=== PATIENT | male | born 1955 | race Caucasian/White ===

== ENCOUNTER 2018-08-23 07:30 | Inpatient (IN) | payer MEDICARE, OTHER ==
[~2018-08-23] VITALS: Ht 170.2 cm; Wt 140.6 kg
[~2018-08-23 07:30] MED LIST: DIAZ5TAB3 PO; GBPN600T PO; LINA5TAB PO; METH750T3 PO; METO100T6 PO; NABU750T PO; OMEG1CAP PO; OXYC-465 PO; UBID100C17 PO
[2018-08-30] MEDS ORDERED: FINA5TAB6 PO (10:33)
[2018-08-30] MEDS ORDERED: METF-397 PO (10:33)
[2018-08-30] MEDS ORDERED: TAMS0.4C2 PO (10:33)
[2018-08-30] MEDS ORDERED: CYCL10TA9 PO (10:33)
[2018-08-30] MEDS ORDERED: METO-370 PO (10:33)
[2018-08-30] MEDS ORDERED: METF-478 PO (11:11)
--- NOTE | 2018-08-30 13:04 | NUR ---
CALLED [facility] IN [place] FOR A LIST OF RECENTLY FILLED MEDICATIONS. I ALSO CALLED THE PATIENT AND WENT OVER THAT LIST WITH HIM OVER THE PHONE. [facility] FILLED: 08-27-18 METFORMIN ER 500MG BID 08-27-18 METOPROLOL ER 50MG DAILY 08-17-18 GABAPENTIN 600MG 1 AM 1 NOON 3 HS 08-05-18 FINASTERIDE 5MG HS (TAKES AT DINNER TIME) 08-05-18 FLOMAX 0.4MG AFTER EVENING MEAL 08-04-18 FLEXERIL 10MG Q8H PRN (TAKES TID SCHEDULED) HE ALSO TAKES A CO Q 10 IN THE AFTERNOON OTC.
[2018-09-06] MEDS ORDERED: morphine INJ 10 MG/ML 1ML (SYR OR VIAL) IVP PRN (06:45)
[2018-09-06] MEDS ORDERED: ACETAMINOPHEN 325 MG TABLET PO PRN (06:45)
--- OUTSIDE RECORDS SUMMARY | 2018-09-06 07:09 | XMS REPORT | Continuity of Care Document ---
Author Author [facility] Organization [facility] Address Unknown Phone Unavailable Allergies Active Description Code Type Severity Reaction Onset Reported/Identified Relationship to Patient Clinical Status Yes aspirin [id number] Drug Allergy Unknown UPSET STOMACH 03/28/2015 Yes latex [id number] Drug Allergy Unknown HIVES 03/28/2015 Yes aspirin [id number] Drug Allergy Mild UPSET STOMACH 08/30/2018 Yes latex [id number] Drug Allergy Mild HIVES 08/30/2018 Medications There is no data. Problems Date Dx Coded Attending Type Code Diagnosis Diagnosed By 04/05/2015 ELVIN BRANDT MD Ot E11.9 04/05/2015 ELVIN BRANDT MD, Ot E78.0 04/05/2015 ELVIN BRANDT MD, Ot G47.33 04/05/2015 ELVIN BRANDT MD, Ot I10 04/05/2015 ELVIN BRANDT MD Ot M47.892 04/05/2015 ELVIN BRANDT MD, Ot M96.0 04/05/2015 ELVIN BRANDT MD, Ot Z23 04/06/2015 ELVIN BRANDT MD Ot 724.00 04/06/2015 ELVIN BRANDT MD Ot V72.63 04/06/2015 ELVIN BRANDT MD, Ot V72.81 04/06/2015 ELVIN BRANDT MD, Ot V74.8 08/31/2018 ELVIN BRANDT MD, Ot M96.0 PSEUDARTHROSIS AFTER FUSION OR ARTHRODES 08/31/2018 ELVIN BRANDT MD Ot Z01.812 ENCOUNTER FOR PREPROCEDURAL LABORATORY E 08/31/2018 ELVIN BRANDT MD, Ot Z11.2 ENCOUNTER FOR SCREENING FOR OTHER BACTER Procedures There is no data. Results Test Result Range Blood type T Indirect antibody screen panel - 08/30/18 10:50 ABO+Rh group BN NRG Blood group antibody screen NEGATIVE NRG Methicillin resistant Staphylococcus aureus (MRSA) screening culture - 10:50 Methicillin resistant Staphylococcus aureus (MRSA) screening culture NEG NRG Encounters ACCT No. Visit Date/Time Discharge Status Pt. Type Provider Facility Loc./Unit Complaint [id number] 08/30/2018 10:20:00 08/30/2018 14:04:00 DIS Outpatient ELVIN BRANDT MD [facility] PREOP NON-UNION [id number] 04/02/2015 08:03:00 04/05/2015 10:30:00 DIS Inpatient ELVIN BRANDT MD [facility] SURGICAL [id number] 03/28/2015 08:44:00 03/28/2015 23:59:59 CLS Outpatient ELVIN BRANDT MD [facility] PREOP [id number] 09/06/2018 07:30:00 ACT Preadmit ELVIN BRANDT MD [facility] SDC NON-UNION [id number] 03/28/2015 08:45:20 ACT Document Registration
--- OUTSIDE RECORDS SUMMARY | 2018-09-06 07:09 | XMS REPORT | Clinical Summary ---
Author Author [facility] Address Unknown Phone Unavailable Care Team Providers Care Hybrid Tester Name Role Phone Melissa Jo MD Unavailable Unverified, Unverified PCP Unavailable Source Comments Some departments are not documenting in the electronic medical record. If you do not see the information that you expected, contact Release of Information in the Health Information Management department at [phone] for further assistance in locating additional records.[facility] Allergies Comments Active Allergy Reactions Severity Noted Date Allergy recorded in SMS: ASA~Reactions: STOMACH UPSET Aspirin Medium 08/12/2004 Medications End Date Status Medication Sig Dispensed Refills Start Date Active methocarbamol (ROBAXIN) Take 1,500 mg 0 750 mg tablet by mouth three times daily. Active [place]-3 Acid Ethyl Esters Take 2 g by 0 (LOVAZA) 1 gram cap mouth twice daily with meals. Active metformin-SR(+) Take 1,000 mg 0 (GLUMETZA) 1,000 mg by mouth tablet twice daily with meals. Active traMADol (ULTRAM) 50 mg Take 100 mg 0 tablet by mouth three times daily. Active METOPROLOL SUCCINATE Take 100 mg 0 (TOPROL XL PO) by mouth daily. Active amitriptyline (ELAVIL) 50 Take 50 mg by 0 mg tablet mouth twice daily. Take 2 tablets by mouth daily Active gabapentin (NEURONTIN) Take 600 mg 0 600 mg tablet by mouth. Take one tablet in the morning, one tablet at noon and three tablets at bedtime Active nabumetone (RELAFEN) 750 Take 750 mg 0 mg tablet by mouth twice daily. Active ketoconazole (NIZORAL) 2 Apply to 0 % topical cream affected area daily. Active blood sugar diagnostic 1 Strip by 0 (ACCU-CHEK CAPRICE PLUS) Test route test strip before meals and at bedtime. Active coenzyme Q10(+) 100 mg Take 100 mg 0 cap by mouth. Active Problems Not on file Social History Date Tobacco Use Types Packs/Day Years Used Never Assessed Sex Assigned at Date Recorded Not on file Industry Job Start Date Occupation Not on file Not on file Not on file Travel End Travel History Travel Start No recent travel history available. Last Filed Vital Signs Time Taken Vital Sign Reading 02/22/2013 9:15 AM CDT Blood Pressure 148/87 02/22/2013 9:15 AM CDT Pulse 72 - Temperature - - Respiratory Rate - - Oxygen Saturation - - Inhaled Oxygen - Concentration 02/22/2013 9:15 AM CDT Weight 142 kg (313 lb) - Height - - Body Mass Index - Plan of Treatment Health Maintenance Due Date Last Done Comments HEPATITIS C SCREENING 1957 PHYSICAL (COMPREHENSIVE) 01/18/1964 EXAM HIV SCREENING 01/18/1972 DTAP/TDAP VACCINES (1 - 1975 Tdap) COLORECTAL CANCER 2007 SCREENING SHINGLES RECOMBINANT 2007 VACCINE (1 of 2) INFLUENZA VACCINE 02/03/2019 Results Not on filefrom Last 3 Months
[2018-09-06] MEDS ORDERED: GENTAMICIN 40 MG/ML 2 ML INJ SDV ONE ×2 (07:21→10:36)
[2018-09-06] MEDS ORDERED: BACITRACIN OINTMENT 28 GM TUBE ONE (07:21)
[2018-09-06] MEDS ORDERED: VANCOMYCIN 1000 MG/VIAL ONE (07:21)
[2018-09-06] MEDS ORDERED: fentaNYL INJECTION 250 MCG/5 ML AMP ONE (07:42)
[2018-09-06] MEDS ORDERED: MIDAZOLAM 2 MG/2 ML (VERSED) VIAL ONE (07:42)
[2018-09-06] MEDS ORDERED: ceFAZolin 2 GM IV Premixed 50 ML IV ONE (07:45)
[2018-09-06] MEDS: LACTATED RINGERS 1,000 ML IV PRN ×6 (08:11→16:20)
[2018-09-06 08:13] LABS: HEMOGLOBIN 13.4 G/DL (13.3-17.7); MEAN PLATELET VOLUME 9.2 FL (7.4-10.4); RED CELL DISTRIBUTION WIDTH 14.5 % (10.0-14.5); WHITE BLOOD COUNT 7.4 10^3/uL (4.3-11.0)
[2018-09-06 08:19] VITALS: BP 138/98
[2018-09-06 08:30] LABS: BUN/CREATININE RATIO 18; CALCIUM 8.9 MG/DL (8.5-10.1); CARBON DIOXIDE 23 MMOL/L (21-32); CHLORIDE 105 MMOL/L (98-107); CREATININE SERUM 0.88 MG/DL (0.60-1.30); GFR ESTIMATED > 60; GLUCOSE 114 MG/DL (70-105); POTASSIUM 3.9 MMOL/L (3.6-5.0); SODIUM 138 MMOL/L (135-145)
[2018-09-06] MEDS ORDERED: SEVOFLURANE (ULTANE) 15 ML INHAL SOLN ONE ×17 (10:31→15:17)
[2018-09-06] MEDS ORDERED: LIDOCAINE PF 2% 5 ML (XYLOCAINE) VIAL ONE ×3 (10:32→11:40)
[2018-09-06] MEDS ORDERED: ONDANSETRON 4 MG/2 ML (SDV) Z0FRAN ONE ×2 (10:32→15:53)
[2018-09-06] MEDS ORDERED: DEXMEDETOMIDINE 200 MCG/2 ML (PRECEDEX) VIAL IV ONE ×3 (10:32→13:06)
[2018-09-06] MEDS ORDERED: SUCCINYLCHOLINE INJ 100 MG/5 ML SYR ONE (10:32)
[2018-09-06] MEDS ORDERED: ROCURONIUM 10 MG/ML 5 ML SYRINGE IV ONE ×2 (10:32→13:35)
[2018-09-06] MEDS ORDERED: LACTATED RINGERS 1,000 ML IV ONE ×2 (10:32→14:32)
[2018-09-06] MEDS ORDERED: TRANEXAMIC ACID 100 MG/ML 10 ML INJECTION IV ONE ×2 (10:32→14:32)
[2018-09-06] MEDS ORDERED: CEFAZOLIN IV SCH (10:45)
[2018-09-06] MEDS ORDERED: WATER IV SCH (10:45)
[2018-09-06] MEDS ORDERED: PHENYLEPHRINE 100 MCG/ML 10 ML (ANESTHESIA) SYR ONE (10:50)
[2018-09-06] MEDS ORDERED: ceFAZolin INJECTION 2,000 MG in WATER (STERILE) FOR INJECTION 10 ML IV ONE (12:40)
[2018-09-06] MEDS ORDERED: ceFAZolin INJECTION 2,000 MG ONE (12:42)
[2018-09-06] MEDS ORDERED: proPOfol 200 MG/20 ML (DIPRIVAN) VIAL IV ONE (14:32)
[2018-09-06] MEDS ORDERED: fentaNYL INJECTION 100 MCG/2 ML AMP ONE (15:52)
[2018-09-06] MEDS ORDERED: HYDROmorphone 2 MG/ML VIAL (DILAUDID) ONE (15:52)
[2018-09-06] MEDS ORDERED: morphine INJ 10 MG/ML 1ML (SYR OR VIAL) ONE (15:53)
--- NOTE | 2018-09-06 16:17 | Progress Note-Post Operative ---
Post-Operative Progess Note Surgeon (s)/Early Childhood Lead Teacher (s) Surgeon ELVIN BRANDT MD Early Childhood Lead Teacher: LISETTE Valadez Pre-Operative Diagnosis Lumbosacral Non-union, Thoracic Adjacent segment degeneration. Hardware Fa Post-Operative Diagnosis Same Procedure & Operative Findings Date of Procedure 09/06/18 Procedure Performed/Findings C7-Pelvis revision instrumentation. Anesthesia Type GETA Estimated Blood Loss Estimated blood loss (mL): 1400 Specimens/Packing Specimens Removed Cultures ELVIN BRANDT MD Sep 06, 2018 16:17
--- NOTE | 2018-09-06 16:29 | Diagnostic Imaging Report ---
INDICATION: Fluoroscopy during spinal surgery. TECHNIQUE: Fluoroscopy was provided in the OR during revision of back fusion. 43 seconds of fluoroscopy was utilized. Images demonstrate extensive spinal instrumentation throughout the cervical, thoracic, and lumbar spine with iliac extensions. IMPRESSION: Fluoroscopy during cervical spinal fusion revision. Dictated by: Dictated on workstation # [id number]
[2018-09-06] MEDS ORDERED: morphine INJ 10 MG/ML 1ML (SYR OR VIAL) IVP ONE (16:30)
[2018-09-06] MEDS ORDERED: ONDANSETRON 4 MG/2 ML (SDV) Z0FRAN IVP PRN (16:30)
[2018-09-06] MEDS: NS IV 1000 ML 1,000 ML IV SCH ×2 (17:48→19:00)
[2018-09-06] MEDS: PANTOPRAZOLE 40 MG (PROTONIX) VIAL IV SCH (17:51)
[2018-09-06] MEDS: MULTIVIT W/MINERALS TAB (THERAGRAN M) PO SCH (17:51)
[2018-09-06] MEDS: DOCUSATE SODIUM 100 MG (COLACE) CAP PO SCH ×2 (18:52→20:53)
[2018-09-06] MEDS: inSUlin ASPART (NovoLOG) 1 UNIT/0.01 ML (CHARGE PER UNIT) SC SCH ×3 (18:53→20:48)
[2018-09-06 19:00] VITALS: BP 109/79
[2018-09-06 20:00] VITALS: BP 99/55
[2018-09-06] MEDS: ceFAZolin INJECTION 3,000 MG in NS (IVPB) 50 ML IV SCH (20:44)
[2018-09-06] MEDS: DIAZEPAM 5 MG (VALIUM) TABLET PO PRN (20:53)
[2018-09-06 21:00] VITALS: BP 105/65
[2018-09-06 22:00] VITALS: BP 109/78
[2018-09-06 23:00] VITALS: BP 114/78
[2018-09-07] VITALS (23 sets, daily range): BP systolic 97–124; BP diastolic 54–90
[2018-09-07] MEDS: HYDROcodone/APAP 10 MG/325 MG (LORTAB) TAB PO PRN ×3 (00:51→18:10)
--- NOTE | 2018-09-07 02:25 | NUR ---
Contacted E-ICU r/t pt's increasing temperature and heart rate, even after pain medication administration. Labs to be drawn.
[2018-09-07 03:42] LABS: BASOPHILS % (AUTO) 0 % (0-10); EOSINOPHILS % (AUTO) 0 % (0-10); HEMATOCRIT 42 % (40-54); HEMOGLOBIN 13.9 G/DL (13.3-17.7); LYMPHOCYTES # (AUTO) 1.5 X 10^3 (1.0-4.0); LYMPHOCYTES % (AUTO) 8 % (12-44); MEAN CORPUSCULAR HEMOGLOBIN 29 PG (25-34); MEAN CORPUSCULAR HGB CONC 33 G/DL (32-36); MEAN CORPUSCULAR VOLUME 86 FL (80-99); MEAN PLATELET VOLUME 9.1 FL (7.4-10.4); MONOCYTES # (AUTO) 2.4 X 10^3 (0.0-1.0); MONOCYTES % (AUTO) 12 % (0-12); NEUTROPHILS # (AUTO) 15.1 X 10^3 (1.8-7.8); NEUTROPHILS % (AUTO) 80 % (42-75); PLATELET COUNT 331 10^3/uL (130-400); RED CELL DISTRIBUTION WIDTH 14.9 % (10.0-14.5); WHITE BLOOD COUNT 18.9 10^3/uL (4.3-11.0)
[2018-09-07] MEDS: ceFAZolin INJECTION 3,000 MG in NS (IVPB) 50 ML IV SCH ×2 (03:50→11:51)
--- NOTE | 2018-09-07 03:55 | OPERATIVE REPORT ---
DATE OF SERVICE: 09/06/2018 PREOPERATIVE DIAGNOSES: Lumbosacral nonunion thoracic adjacent segment degeneration kyphosis and a breakdown mechanical complication of hardware with broken hardware. POSTOPERATIVE DIAGNOSES: Lumbosacral nonunion thoracic adjacent segment degeneration kyphosis and a breakdown mechanical complication of hardware with broken hardware. PROCEDURES PERFORMED 1. Removal of thoracolumbar or pelvic instrumentation with exploration of fusion and revision fusion of the lumbosacral junction from the L4 to the pelvis and fusion at the top of the construct from thoracic 1 to 5 2. New instrumentation at thoracic 3, 4 and 5. 3. Reinsertion of spinal fixation from T6 to the pelvis. (18 Level Fusion) 4. Pelvic Fixation at caudal end of construct 5. Local Autograft for spine surgery. 6. Allograft for spine surgery DATE AND TIME OF SURGERY: Please see anesthesia record. IMPLANTS USED: [employer] Vitality, pedicle screws, mike-to-mike connectors, pelvic screws and [employer] integral bone graft. SURGEON: Elvin Brandt MD ROUGH ROUNDER MACHINE: LUCIA Valadez. ROLE OF RIGGER CHIEF: Aid in retraction of the procedure, aid in implantation incisional closure. ANESTHESIA: General endotracheal. ESTIMATED BLOOD LOSS: 1400 mL. INTRAVENOUS FLUIDS: Please see anesthesia record. ANTIBIOTICS: Ancef with repeated doses. COMPLICATIONS: None. SPECIMENS: Cultures were obtained down deep. INDICATIONS FOR PROCEDURE: The patient is a 63-year-old male with previous extensive fusion. He has had several add-ons. He has a lumbosacral nonunion with broken and loose instrumentation and a breakdown above and kyphosis at the top of his construct with proximal junctional kyphosis present. Risks, benefits, alternatives were discussed and he elected to proceed with operative intervention. Because of the multiple mike-to-mike connectors previously it was felt that removal of all of his instrumentation and a single system was most warranted with a planned three rods. NEUROMONITORING: Standard intraoperative monitoring carried out by means of real time continuous high quality bidirectional mode, audio and visual communication to both the computer operations technician and surgeon by Dr. Rodriguez was performed. SSEPS, EMGs, TcMEPs, TOFs were carried out continuously throughout the procedure stable. DESCRIPTION OF PROCEDURE: The patient was opened from C7 all the way to the pelvis of the hardware and level was exposed, hardware was removed. There was loose broken instrumentation on the right side at the S1 and pelvic screw and there was a broken mike between L5 and S1 on the left side. The tip of the pelvic screw on the right could not be removed and the tulip came off on the left side, but the remaining screw could not be removed out of the pelvis and screws placed just inferiorly to each pelvic screw was placed with great purchase and fit. New instrumentation was placed after removal of all the old instrumentation. Care was taken at preserving his spinal cord stimulator throughout the procedure. New screws were placed in the T3, T4 and T5. Mike-to-mike connectors were placed above approximately between T1 and T2 and then rods were fit contoured and from T1 all the way down to the pelvis bilaterally were connected together with a single continuous mike measuring approximately 570 mm. A third cobalt chrome mike was placed from approximately T11 to the pelvis and then L4, L5 and the sacral ala were decorticated significantly and infuse and autograft and allograft bone were packed in the posterior lateral gutter for the fusion portion of the procedure and local autograft and allograft were packed from approximately T1-T6 for the fusion portion as well. The wounds were irrigated prior to bone grafting. Wounds were closed in multiple layers. During the exposure there were cultures obtained from the hardware down deep. The wound was closed in layers. The patient transferred to recovery room in stable condition and tolerated the procedure well with stable spinal monitoring. Job ID: [id number] DocumentID: [id number] Dictated Date: 09/06/2018 16:20:59 Dubbing Machine Operator Date: 09/07/2018 03:54:56 Dictated By: ELVIN BRANDT MD [facility]
[2018-09-07 04:01] LABS: ALBUMIN 3.3 GM/DL (3.2-4.5); BILIRUBIN,TOTAL 0.6 MG/DL (0.1-1.0); CALCIUM 8.4 MG/DL (8.5-10.1); CREATININE SERUM 1.69 MG/DL (0.60-1.30); MAGNESIUM 1.9 MG/DL (1.8-2.4); PHOSPHORUS 2.2 MG/DL (2.3-4.7); POTASSIUM 4.4 MMOL/L (3.6-5.0); TOTAL PROTEIN 6.2 GM/DL (6.4-8.2)
--- NOTE | 2018-09-07 04:15 | NUR ---
E-ICU contacted this RN r/t am lab values, i.e. creatinine value. One liter bolus ordered per dr. Abelino Irby.
[2018-09-07 04:23] LABS: LYMPHOCYTES % (MANUAL) 7 %; MONOCYTES % (MANUAL) 12 %; NEUTROPHILS % (MANUAL) 81 %
[2018-09-07] MEDS: ONDANSETRON 4 MG/2 ML (SDV) Z0FRAN IV PRN ×2 (04:50→08:21)
[2018-09-07] MEDS ORDERED: NS IV 1000 ML 1,000 ML IV SCH ×2 (05:00→06:30)
[2018-09-07] MEDS: inSUlin ASPART (NovoLOG) 1 UNIT/0.01 ML (CHARGE PER UNIT) SC SCH ×4 (05:12→21:00)
--- NOTE | 2018-09-07 05:41 | Pulmonary Consultation ---
History of Present Illness History of Present Illness Date of Consultation 09/07/18 05:36 Date of Admission Allergies and Home Medications Allergies Coded Allergies: aspirin (Verified Allergy, Mild, UPSET STOMACH, 08/30/18) latex (Verified Allergy, Mild, HIVES, 08/30/18) Home Medications Cyclobenzaprine HCl 10 Mg Tablet, 10 MG PO TID, (Reported) Finasteride 5 Mg Tablet, 5 MG PO 1800, (Reported) Gabapentin 600 Mg Tablet, 600 MG PO 0800,1200, (Reported) Gabapentin 600 Mg Tablet, 1,800 MG PO HS, (Reported) TAKE 3 (600MG) TABS AT HS Metformin HCl 500 Mg Tab.er.24, 500 MG PO BID, (Reported) Metoprolol Succinate 50 Mg Tab.er.24h, 50 MG PO DAILY, (Reported) Tamsulosin HCl 0.4 Mg Cap.er.24h, 0.4 MG PO 1800, (Reported) Ubidecarenone 100 Mg Capsule, 200 MG PO 1200, (Reported) Past Nbcgrml-Dhjgvn-Ygfqws Hx Patient Social History Alcohol Use: Denies Use Recreational Drug Use: No Recent Foreign Travel: No Contact w/Someone Who Travel: No Recent Infectious Disease Expo: No Recent Hopitalizations: No Immunizations Up To Date Tetanus Booster (TDap): More than 5yrs Date of Pneumonia Vaccine: Apr 12, 2018 Date of Influenza Vaccine: Apr 12, 2018 Seasonal Allergies Seasonal Allergies: No Past Medical History Surgeries: Yes (RIGH ING HERNIA, BACK SX X9, BILAT ULNAR NERVE, NEURO STIMULATOR, ) Respiratory: Yes Sleep Apnea Currently Using CPAP: No (HAS ONE DOESNT USE) Cardiac: Yes (02/20-HEART CATH CLEAN) Neurological: Yes Sexually Transmitted Disease: No HIV/AIDS: No Genitourinary: Yes Prostate Problems Gastrointestinal: No Musculoskeletal: Yes Degenerate Disk Disease, Arthritis, Chronic Back Pain Endocrine: Yes Diabetes, Non-Insulin dep HEENT: Yes (READING GLASSES, DENTURES) Loss of Vision: Bilateral Hearing Impairment: Denies Cancer: Yes Skin Psychosocial: No Integumentary: Yes (DEMATITIS) Blood Disorders: No Adverse Reaction/Blood Tranf: No (HAS HAD BLOOD WITH NO REACTION) Family Medical History Arthritis 19 FATHER 19 MOTHER G8 BROTHER G8 SISTER Colon cancer 19 MOTHER Dementia 19 FATHER Diabetes mellitus 19 FATHER Respiratory disorder 19 FATHER Review of Systems Time Seen by Provider: 06:21 Constitutional: Weakness, Malaise; No: Fever, Chills, Sweats, Other Eyes: No: Pain, Vision change, Conjunctivae inflammation, Eyelid inflammation, Other, Redness ENT: No: Ear pain, Ear discharge, Nose pain, Nose discharge, Nose congestion, Mouth pain, Mouth swelling, Throat pain, Throat swelling, Other Respiratory: No: Cough, Dry, Shortness of breath, SOB with excertion, Wheezing , Hemoptysis, Pleuritic Pain, Sputum, Wheezing, Other Cardiovascular: No: Chest Pain, Palpitations, Orthopnea, Paroxysmal Noc. Dyspnea, Edema, Lt Headedness, Other Gastrointestinal: Nausea, Vomiting; No: Abdominal Pain, Diarrhea, Constipation Genitourinary: No Dysuria, No Frequency, No Incontinence, No Hematuria, No Retention, No Other Sepsis Event Evaluation Height, Weight, BMI Height: 5'7.00" Weight: 297lbs. 7.0oz. 134.437838of; 46.6 BMI Method: Exam Exam Vital Signs Date Time Temp Pulse Resp B/P (MAP) Pulse Ox O2 Delivery O2 Flow Rate FiO2 09/07/18 04:00 122 10 99/70 (80) 95 OxyMask 2.00 09/07/18 03:50 100.8 09/07/18 03:00 124 17 114/68 (83) 94 OxyMask 2.00 09/07/18 02:37 100.9 09/07/18 02:00 137 13 101/71 (81) 93 OxyMask 2.00 09/07/18 01:00 133 09/07/18 01:00 133 17 115/73 (87) 91 OxyMask 2.00 09/07/18 00:24 Room Air 09/07/18 00:00 118 19 103/54 (70) 95 OxyMask 2.00 09/06/18 23:31 99.6 OxyMask 2.00 09/06/18 23:00 112 16 114/78 (90) 94 OxyMask 2.00 09/06/18 22:00 93 8 109/78 (88) 95 OxyMask 2.00 09/06/18 21:00 Room Air 09/06/18 21:00 87 105/65 (78) 98 Room Air 09/06/18 20:35 98.2 Room Air 09/06/18 20:00 71 20 99/55 (70) 95 Room Air 09/06/18 19:00 80 09/06/18 19:00 80 14 109/79 (89) 95 Room Air 09/06/18 16:11 51 09/06/18 08:40 95 Room Air 09/06/18 08:19 98.3 90 18 138/98 95 Room Air I & O 09/07/18 07:00 Intake Total 5430 ml Output Total 2700 ml Balance 2730 ml Height & Weight Height: 5'7.00" Weight: 297lbs. 7.0oz. 134.922908lu; 46.6 BMI Method: General Appearance: No Apparent Distress, WD/WN, Obese HEENT: PERRL/EOMI, Pharynx Normal Neck: Non Tender, Supple; No Carotid Bruit Respiratory: No Accessory Muscle Use, No Respiratory Distress, Crackles, Decreased Breath Sounds Cardiovascular: No Murmur, Normal Peripheral Pulses, Tachycardia Capillary Refill: Less Than 3 Seconds Gastrointestinal: normal bowel sounds, non tender, soft, no organomegaly, no pulsatile mass Extremity: Normal Capillary Refill, Normal Inspection Neurologic/Psychiatric: Alert, Oriented x3 Skin: Normal Color, Warm/Dry Lymphatic: No Adenopathy Results Lab Laboratory Tests 09/06/18 07:50 09/07/18 03:30 Assessment/Plan Assessment/Plan -Sinus tachycardia Hypotension -1 liter bolus of NS -Increase IVF to 150cc/hr -S/p thoracic lumbar surgery fusion and instrument removal and reinsertion -Pain control -Obesity with probable KIMANI - witnessed nocturnal hypoxia/apnea -Out patient testing -Acute renal failure - prerenal -IVF N/V -Probably secondary to pain meds -Zofran Hypophos -replace Leukocytosis -reactive SAHIL ALDANA DO Sep 07, 2018 05:41
[2018-09-07] MEDS ORDERED: SODIUM PHOSPHATE INJ 30 MM in NS (IVPB) 250 ML IV ONE (06:00)
[2018-09-07] MEDS: PANTOPRAZOLE 40 MG (PROTONIX) VIAL IV SCH (06:19)
[2018-09-07] MEDS: MULTIVIT W/MINERALS TAB (THERAGRAN M) PO SCH (06:19)
[2018-09-07] MEDS: NS IV 1000 ML 1,000 ML IV SCH ×3 (06:20→18:14)
--- NOTE | 2018-09-07 06:21 | Progress Note (SOAP) ---
Subjective Date Seen by a Provider: Sep 07, 2018 Time Seen by a Provider: 06:19 Subjective/Events-last exam Awake, alert, no real complaints, pain ok. Arms/legs feel ok. Objective Exam Vital Signs Date Time Temp Pulse Resp B/P (MAP) Pulse Ox O2 Delivery O2 Flow Rate FiO2 09/07/18 04:00 122 10 99/70 (80) 95 OxyMask 2.00 09/07/18 03:50 100.8 09/07/18 03:00 124 17 114/68 (83) 94 OxyMask 2.00 09/07/18 02:37 100.9 09/07/18 02:00 137 13 101/71 (81) 93 OxyMask 2.00 09/07/18 01:00 133 09/07/18 01:00 133 17 115/73 (87) 91 OxyMask 2.00 09/07/18 00:24 Room Air 09/07/18 00:00 118 19 103/54 (70) 95 OxyMask 2.00 09/06/18 23:31 99.6 OxyMask 2.00 09/06/18 23:00 112 16 114/78 (90) 94 OxyMask 2.00 09/06/18 22:00 93 8 109/78 (88) 95 OxyMask 2.00 09/06/18 21:00 Room Air 09/06/18 21:00 87 105/65 (78) 98 Room Air 09/06/18 20:35 98.2 Room Air 09/06/18 20:00 71 20 99/55 (70) 95 Room Air 09/06/18 19:00 80 09/06/18 19:00 80 14 109/79 (89) 95 Room Air 09/06/18 16:11 51 09/06/18 08:40 95 Room Air 09/06/18 08:19 98.3 90 18 138/98 95 Room Air I & O 09/07/18 07:00 Intake Total 5430 ml Output Total 2700 ml Balance 2730 ml Capillary Refill : General Appearance: No Apparent Distress Respiratory: No Accessory Muscle Use, No Respiratory Distress Cardiovascular: Tachycardia Gastrointestinal: non tender, soft Extremity: Normal Capillary Refill, Normal Inspection Neurologic/Psychiatric: Alert, Oriented x3, No Motor/Sensory Deficits Results Lab Laboratory Tests 09/06/18 07:24: Glucometer 125H 09/06/18 07:50: White Blood Count 7.4, Red Blood Count 4.80, Hemoglobin 13.4, Hematocrit 41, Mean Corpuscular Volume 86, Mean Corpuscular Hemoglobin 28, Mean Corpuscular Hemoglobin Concent 32, Red Cell Distribution Width 14.5, Platelet Count 238, Mean Platelet Volume 9.2, Sodium Level 138, Potassium Level 3.9, Chloride Level 105, Carbon Dioxide Level 23, Anion Gap 10, Blood Urea Nitrogen 16, Creatinine 0.88, Estimat Glomerular Filtration Rate > 60, BUN/Creatinine Ratio 18, Glucose Level 114H, Calcium Level 8.9 09/06/18 18:34: Glucometer 155H 09/06/18 20:47: Glucometer 138H 09/07/18 03:30: White Blood Count 18.9H, Red Blood Count 4.85, Hemoglobin 13.9, Hematocrit 42, Mean Corpuscular Volume 86, Mean Corpuscular Hemoglobin 29, Mean Corpuscular Hemoglobin Concent 33, Red Cell Distribution Width 14.9H, Platelet Count 331, Mean Platelet Volume 9.1, Neutrophils (%) (Auto) 80H, Lymphocytes (%) (Auto) 8L , Monocytes (%) (Auto) 12, Eosinophils (%) (Auto) 0, Basophils (%) (Auto) 0, Neutrophils # (Auto) 15.1H, Lymphocytes # (Auto) 1.5, Monocytes # (Auto) 2.4H, Eosinophils # (Auto) 0.0, Basophils # (Auto) 0.0, Neutrophils % (Manual) 81, Lymphocytes % (Manual) 7, Monocytes % (Manual) 12, Sodium Level 139, Potassium Level 4.4, Chloride Level 106, Carbon Dioxide Level 21, Anion Gap 12, Blood Urea Nitrogen 19H, Creatinine 1.69H, Estimat Glomerular Filtration Rate 41, BUN/ Creatinine Ratio 11, Glucose Level 138H, Calcium Level 8.4L, Corrected Calcium 9.0, Phosphorus Level 2.2L, Magnesium Level 1.9, Total Bilirubin 0.6, Aspartate Amino Transf (AST/SGOT) 252H, Alanine Aminotransferase (ALT/SGPT) 43, Alkaline Phosphatase 115, Total Protein 6.2L, Albumin 3.3 Microbiology 09/06/18 Gram Stain - Final, Resulted 09/06/18 Anaerobic Culture, Resulted Pending 09/06/18 Surgical Culture, Resulted Pending 09/06/18 Fungal Culture 1, Resulted Pending Assessment/Plan Assessment/Plan Assess & Plan/Chief Complaint Fasdnci-oyojcg-cszvfv fusion for non-union and deformity Morbid obesity, BMI > 45 complicating surgery and recovery Mild renal insufficiency, likely behind on fluid give bolus Up with PT today Clinical Quality Measures DVT/VTE Risk/Contraindication: Risk Factor Score Per Nursin RFS Level Per Nursing on Admit: 4+=Very High ELVIN BRANDT MD Sep 07, 2018 06:21
[2018-09-07] MEDS: DOCUSATE SODIUM 100 MG (COLACE) CAP PO SCH ×2 (07:24→20:38)
[2018-09-07] MEDS: DIAZEPAM 5 MG (VALIUM) TABLET PO PRN (08:18)
--- NOTE | 2018-09-07 09:41 | Consultation ---
HPI History of Present Illness: HPI/Chief Complaint CC: Medical management following extensive lumbar spine surgery uncomplicated POD # 1 HPI: HPI: This is a 63yoWM disabled Pt of Dr. Jase Diaz and Dr. Valera with a past medical history of DM, melanous, HTN, KIMANI- noncompliant with CPAP and home oxygen who presents after an extensive lumbar and thoracic spine surgery by Dr. Garcia in an uncomplicated manner. Numerous hardware items were placed in the spine and at this time Pt feels nauseated. Pt does have minimal bowel sounds so will maintain clear diet until bowels regain normalcy. 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 Pt lives with his who can help him but he may be an inpatient rehab candidate. I reviewed his home medication list and labs and noted his creatinine elevated at 1.6 from 0.9 so will maintain IV fluids and normal saline at 150 CCs per hour. Appreciate Dr. Ruiz input. Restarted all home meds including Neurontin but holding Metformin due to the renal insufficiency Source: patient, old records Exam Limitations: clinical condition Date Seen 09/07/18 Attending Physician Franklin Garcia MD PCP Jase Diaz DO Referring Physician Date of Admission Sep 06, 2018 at 07:04 Home Medications & Allergies Home Medications Reviewed patient Home Medication Reconciliation performed by pharmacy medication reconciliations wound care technician and/or nursing. Patients Allergies have been reviewed. Allergies Allergies Coded Allergies aspirin (Verified Allergy, Mild, UPSET STOMACH, 08/30/18) latex (Verified Allergy, Mild, HIVES, 08/30/18) Past Mkthajm-Acfsua-Zfkbfd Hx Past Med/Social Hx: Reviewed Nursing Past Med/Soc Hx, Reviewed and Corrections made Patient Social History Marrital Status: Employed/Student: unemployed Alcohol Use: Denies Use Recreational Drug Use: No Smoking Status: Former Smoker Physical Abuse Screen: No Sexual Abuse: No Recent Foreign Travel: No Contact w/other who traveled: No Recent Hopitalizations: No Recent Infectious Disease Expo: No Immunizations Up To Date Tetanus Booster (TDap): More than 5yrs Date of Pneumonia Vaccine: Apr 12, 2018 Date of Influenza Vaccine: Apr 12, 2018 Seasonal Allergies Seasonal Allergies: No Past Medical History Surgeries: Orthopedic Respiratory: Sleep Apnea Currently Using CPAP: No (HAS ONE DOESNT USE) Currently Using BIPAP: No Cardiac: High Cholesterol Sexually Transmitted Disease: No HIV/AIDS: No Genitourinary: Prostate Problems Musculoskeletal: Degenerate Disk Disease, Arthritis, Chronic Back Pain Endocrine: Diabetes, Non-Insulin dep Loss of Vision: Bilateral Hearing Impairment: Denies Cancer: Skin History of Blood Disorders: No Adverse Reaction to Blood Thomas: No (HAS HAD BLOOD WITH NO REACTION) Family History Arthritis 19 FATHER 19 MOTHER G8 BROTHER G8 SISTER Colon cancer 19 MOTHER Dementia 19 FATHER Diabetes mellitus 19 FATHER Respiratory disorder 19 FATHER Review of Systems Constitutional: see HPI, weakness EENTM: no symptoms reported Respiratory: no symptoms reported Cardiovascular: no symptoms reported Gastrointestinal: nausea Genitourinary: no symptoms reported Musculoskeletal: back pain Skin: no symptoms reported Psychiatric/Neurological: No Symptoms Reported All Other Systems Reviewed Negative Unless Noted: Yes Physical Exam Physical Exam Vital Signs Vital Signs - First Documented 09/06/18 09/06/18 08:19 22:00 Temp 98.3 Pulse 90 Resp 18 B/P (MAP) 138/98 Pulse Ox 95 O2 Delivery Room Air O2 Flow Rate 2.00 Capillary Refill : Less Than 3 Seconds Height, Weight, BMI Height: 5'7.00" Weight: 306lbs. 4.0oz. 138.404274aq; 46.6 BMI Method: General Appearance: WD/WN, Chronically ill, Mild Distress, Obese HEENT: PERRL/EOMI, Pharynx Normal Neck: Non Tender, Supple; No Carotid Bruit Respiratory: Lungs Clear, Normal Breath Sounds, No Accessory Muscle Use, No Respiratory Distress Cardiovascular: Regular Rate, Rhythm, No Edema, No Gallop, No Murmur, Normal Peripheral Pulses, Tachycardia Gastrointestinal: Abnormal Bowel Sounds (hypoactive) Extremity: Normal Capillary Refill, Normal Inspection Neurologic/Psychiatric: Alert, Oriented x3 Skin: Normal Color, Warm/Dry Lymphatic: No Adenopathy Results Results/Procedures Labs Laboratory Tests 09/06/18 07:50 09/07/18 03:30 Patient resulted labs reviewed. Assessment/Plan Assessment and Plan Assess & Plan/Chief Complaint Assessment: s/p complicated and extensive thoracic and lumbar spine surgery POD # 1 DM KIMANI non-compliant with CPAP and Home O2 Obesity ARF post op Leukocytosis Plan: Monitor labs IVF Pain control IRF soon Diagnosis/Problems Diagnosis/Problems (1) Nonunion of spinal fusion Status: Resolved (2) KIMANI (obstructive sleep apnea) Status: Chronic (3) Acute renal failure Status: Acute Qualifiers: Acute renal failure type: unspecified Qualified Codes: N17.9 - Acute kidney failure, unspecified (4) Leukocytosis Status: Acute Qualifiers: Leukocytosis type: leukemoid reaction Qualified Codes: D72.823 - Leukemoid reaction (5) Obesity Status: Chronic Qualifiers: Obesity type: due to excess calories Obesity classification: adult class 3 (BMI >= 40) Serious obesity comorbidity presence: with serious comorbidity Body mass index: BMI 45.0-49.9 Qualified Codes: E66.01 - Morbid (severe) obesity due to excess calories; Z68.42 - Body mass index (BMI) 45.0-49.9, adult (6) History of BPH Status: Chronic (7) Diabetes mellitus Status: Chronic Qualifiers: Diabetes mellitus type: type 2 Diabetes mellitus termite helper insulin use: without halfway use Diabetes mellitus complication status: without complication Qualified Codes: E11.9 - Type 2 diabetes mellitus without complications Clinical Quality Measures DVT/VTE Risk/Contraindication: Risk Factor Score Per Nursin RFS Level Per Nursing on Admit: 4+=Very High MODESTO SOLIS DO Sep 07, 2018 09:41
[2018-09-07] MEDS: CYCLOBENZAPRINE 10 MG (FLEXERIL) TAB PO SCH ×2 (11:52→20:38)
[2018-09-07] MEDS: BISACODYL 5 MG (DULCOLAX) TABLET PO PRN ×2 (11:52→18:10)
[2018-09-07] MEDS: GABAPENTIN 600 MG (NEURONTIN) TAB PO SCH (11:52)
--- NOTE | 2018-09-07 11:52 | Physical Therapy Evaluation ---
PT Evaluation-General Medical Diagnosis Admission Date Sep 06, 2018 at 07:04 Medical Diagnosis: Udnkhkn-pcqpk-goajmq fusion Onset Date: Sep 06, 2018 Therapy Diagnosis Therapy Diagnosis: decreased mobility Height/Weight Height (Feet): 5 Height (Inches): 7.00 Weight (Pounds): 306 Weight (Ounces): 4.0 Precautions Precautions/Isolations: Fall Prevention, Standard Precautions Weight Bear Status Right Lower Extremity: Right Weight Bearing/Tolerated Left Lower Extremity: Left Weight Bearing/Tolerated Referral Reason for Referral: Evaluation/Treatment Medical History Pertinent Medical History: Arthritis, DM, HTN Additional Medical History 9 previous back surgeries, Neuro stimulator, DD, B ulnar nerve, morbid obesity Reviewed History: Yes Social History Home: Single Level Current Living Status: Spouse Entry Into Home: Stairs With Railing PT Steps Into Home: 4 Prior/Core FIM Prior Level of Function Therapy Code Descriptions/Definitions Functional [place] Measure: 0=Not Assessed/NA 4=Minimal Assistance 1=Total Assistance 5=Supervision or Setup 2=Maximal Assistance 6=Modified [place] 3=Moderate Assistance 7=Complete [place] Therapy Quality Codes: 6 Independent with activity with or without an assistive device 5 Patient requires set up or clean up by helper. Patient completes activity by themselves 4 Supervision or touching assist (CGA). [place] provide cues , steadying assist 3 The helper provides less than half the effort to complete the activity 2 The helper provides more than half the effort to complete the activity 1 Dependent. The helper does all the effort to complete an activity 7 Patient refused to complete or attempt activity 9 The patient did not perform the activity before the current illness or injury 88 Not attempted due to Medical conditions or safety concerns Functional Abilities and Goals: Independent: Patient completed the activities by him/herself, with or without an assistive device, with no assistance from a helper. Needed Some Help: Patient needed partial assistance from another person to complete activities. Dependent: A helper completed the activities for the patient. Unknown: Not Applicable: Bed Mobility: 7 Transfers (B,C,W/C) (FIM): 7 Gait: 7 Stairs: 7 Indoor Mobility (Ambulation): Independent Stairs: Independent Prior Devices Use: None PT Evaluation-Current Subjective Pt in bed and would like to sit up. Nurse Bj will change dressing while pt is up. Pt agrees to PT. Pain Numeric Pain Scale: 5-Moderate Pain Location Body Site: Back Pt/Family Goals Pt would like to return home. Objective Attachments: Sotomayor Catheter ROM/Strength ROM Lower Extremities NT Strength Lower Extremities NT Integumentary/Posture Bladder Incontinence: Sotomayor Cath Neuromuscular (Tone, Coordination, Reflexes) NT Sensory Vision: Functional Hearing: Functional Transfers Therapy Code Descriptions/Definitions Functional [place] Measure: 0=Not Assessed/NA 4=Minimal Assistance 1=Total Assistance 5=Supervision or Setup 2=Maximal Assistance 6=Modified [place] 3=Moderate Assistance 7=Complete [place] Transfers (B, C, W/C) (FIM): 3 Scootin Supine to/from Sit: 3 Sit to/from Stand: 5 Gait Mode of Locomotion: Walk Anticipated Mode of Locomotion: Walk Gait (FIM): 1 Distance (FIM): 1=up to 49 ft Distance: 5' Gait Level of Assist: 5 Gait Persons Needed: 1 Gait Assistive Device: FWW Balance Sitting Static: Good Sitting Dynamic: Fair Standing Static: Good Standing Dynamic: Good Assessment/Needs Pt required mod A to perform supine to sit EOB. Pt was able to reposition with SBA using UEs. Nurse Bj gave pt new dressing for incision with SPT help. Incision looks clean and has drainage. Pt was able to remain EOB for 5-10 mins. Pt was able to perform sit<>stand to FWW with SBA. Pt amb to recliner 5' with FWW. Pt has all needs met in recliner. Rehab Potential: Good Post Rehab Potential-Barriers: co-morbidities PT Short Term Goals Short Term Goals Time Frame: Sep 14, 2018 Transfers (B,C,W/C) (FIM): 6 Gait (FIM): 2 Distance (FIM): 0=718-92 ft Gait Distance Comment: 50' Gait Level of Assist: 5 Gait Assistive Device: FWW PT Plan Problem List Problem List: Activity Tolerance, Functional Strength, Safety, Balance, Gait, Transfer, Bed Mobility, ROM Treatment/Plan Treatment Plan: Continue Plan of Care Treatment Plan: Bed Mobility, Education, Functional Activity Ariel, Functional Strength, Gait, Safety, Therapeutic Exercise, Transfers Treatment Duration: Sep 14, 2018 Frequency: 11 times per week Estimated Hrs Per Day: .25 hour per day Patient and/or Family Agrees t: Yes Safety Risks/Education Patient Education: Gait Training, Transfer Techniques, Correct Positioning, Safety Issues Teaching Recipient: Patient Teaching Methods: Demonstration Discharge Recommendations Therapy D/C Recommendations: Home w/ Family Support, Physical Therapy Home Care , Physical Therapy Outpatient Time/GCodes Time In: 1045 Time Out: 1100 Total Billed Treatment Time: 15 Total Billed Treatment 1 visit EVM 15 min ALMA ROSA BEAVERS PT Sep 07, 2018 11:52
--- NOTE | 2018-09-07 13:54 | Anesthesia-General Post-Op ---
General Patient Condition Mental Status/LOC: Same as Preop Cardiovascular: Satisfactory Nausea/Vomiting: Absent Respiratory: Satisfactory Pain: Controlled Complications: Absent Post Op Complications Complications None Follow Up Care/Instructions Patient Instructions None needed. Anesthesia/Patient Condition Patient Condition Patient was seen this morning in post-op rounds and he was doing well, no complaints, stable vital signs, no apparent adverse anesthesia problems. NINI WAN DO Sep 07, 2018 13:54
--- NOTE | 2018-09-07 15:11 | Physical Therapy Daily Note ---
PT Daily Note-Current Subjective Pt in recliner and agrees to PT. Pain Numeric Pain Scale: 5-Moderate Pain Location Body Site: Back Mental Status Patient Orientation: Person, Place, Situation, Normal For Age Attachments: Oxygen, Sotomayor Catheter Transfers Therapy Code Descriptions/Definitions Functional [place] Measure: 0=Not Assessed/NA 4=Minimal Assistance 1=Total Assistance 5=Supervision or Setup 2=Maximal Assistance 6=Modified [place] 3=Moderate Assistance 7=Complete [place] Therapy Quality Codes: 6 Independent with activity with or without an assistive device 5 Patient requires set up or clean up by helper. Patient completes activity by themselves 4 Supervision or touching assist (CGA). [place] provide cues , steadying assist 3 The helper provides less than half the effort to complete the activity 2 The helper provides more than half the effort to complete the activity 1 Dependent. The helper does all the effort to complete an activity 7 Patient refused to complete or attempt activity 9 The patient did not perform the activity before the current illness or injury 88 Not attempted due to Medical conditions or safety concerns Transfers (B, C, W/C) (FIM): 4 Scootin Supine to/from Sit: 4 Sit to/from Stand: 4 Weight Bearing Right Lower Extremity: Right Weight Bearing/Tolerated Left Lower Extremity: Left Weight Bearing/Tolerated Gait Training Gait (FIM): 1 Distance (FIM): 1=up to 49 ft Distance: 40' Gait Level of Assist: 5 Gait Assistive Device: FWW Assessment Current Status: Good Progress Pt required min A to get to sitting up from leaning back in recliner. Pt is able to perform sit<>stand transfer SBA for safety to FWW. Pt amb 40' in room with SBA for safety. Amb is at a slow pace due to pain. Pt requested to lay in bed and was able to transfer to EOB SBA. Pt had more drainage from incision and nurse was notified. PT assisted nurse with dressing change. Pt able to demonstrate EOB to supine with min A. Pt has all needs met in bed. PT Short Term Goals Short Term Goals Time Frame: Sep 14, 2018 Transfers (B,C,W/C) (FIM): 6 Gait (FIM): 2 Distance (FIM): 8=677-50 ft Gait Distance Comment: 50' Gait Level of Assist: 5 Gait Assistive Device: FWW PT Plan Problem List Problem List: Activity Tolerance, Functional Strength, Safety, Balance, Gait, Transfer, Bed Mobility, ROM Treatment/Plan Treatment Plan: Continue Plan of Care Treatment Plan: Bed Mobility, Education, Functional Activity Ariel, Functional Strength, Gait, Safety, Therapeutic Exercise, Transfers Treatment Duration: Sep 14, 2018 Frequency: 11 times per week Estimated Hrs Per Day: .25 hour per day Patient and/or Family Agrees t: Yes Discharge Recommendations Therapy D/C Recommendations: Home w/ Family Support, Physical Therapy Home Care Time/GCodes Time In: 1357 Time Out: 1413 Total Billed Treatment Time: 16 Total Billed Treatment 1 visit FA 16 min ALMA ROSA BEAVERS PT Sep 07, 2018 15:11
--- NOTE | 2018-09-07 16:01 | Occupational Therapy Eval ---
OT Evaluation-General/PLF Medical Diagnosis Admission Date Sep 06, 2018 at 07:04 Medical Diagnosis: Bmkqbjq-cmnsj-lpbihp fusion Onset Date: Sep 06, 2018 Therapy Diagnosis Therapy Diagnosis: Weakness Height/Weight Height (Feet): 5 Height (Inches): 7.00 Weight (Pounds): 306 Weight (Ounces): 4.0 Precautions Precautions/Isolations: Fall Prevention, Standard Precautions Safety Interventions: None Weight Bear Status Weight Bearing Restriction: Full Weight Bearing Location Restriction: L LE, R LE Referral Physician: Franklin Garcia MD. Referral Reason: Activity Tolerance, Self Care, Evaluation/Treatment, Strengthening/ROM Medical History Pertinent Medical History: Arthritis, DM, HTN, OA Additional Medical History Morbid OBESITY, 9 Previous Back Surgeries, Neuro-Stimulator Reviewed History: Yes Social History Home: Single Level Current Living Status: Spouse Entry Into Home: Stairs With Railing Steps Into Home: 4 ADL-Prior Level of Function Therapy Code Descriptions/Definitions Functional [place] Measure: 0=Not Assessed/NA 4=Minimal Assistance 1=Total Assistance 5=Supervision or Setup 2=Maximal Assistance 6=Modified [place] 3=Moderate Assistance 7=Complete [place] Therapy Quality Codes: 6 Independent with activity with or without an assistive device 5 Patient requires set up or clean up by helper. Patient completes activity by themselves 4 Supervision or touching assist (CGA). [place] provide cues , steadying assist 3 The helper provides less than half the effort to complete the activity 2 The helper provides more than half the effort to complete the activity 1 Dependent. The helper does all the effort to complete an activity 7 Patient refused to complete or attempt activity 9 The patient did not perform the activity before the current illness or injury 88 Not attempted due to Medical conditions or safety concerns Functional Abilities and Goals: Independent: Patient completed the activities by him/herself, with or without an assistive device, with no assistance from a helper. Needed Some Help: Patient needed partial assistance from another person to complete activities. Dependent: A helper completed the activities for the patient. Unknown: Not Applicable: ADL PLOF Comments Pt lives at home with his & was Independent in all self care tasks ,IADLs, mobility & driving. 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 Pain Numeric Pain Scale: 5-Moderate Pain Location: Bone Location Body Site: Back Pain Description: Ache, Pressure, Stabbing Mental Status/Objective Patient Orientation: Person, Place, Time Attachments: Central Line, Sotomayor Catheter, Oxygen, Saline Lock, SCD's, Telemetry Current Glasses/Contacts: No Hearing Aids: No Dentures/Partials: No Hand Dominance: Right Upper Extremity ROM WFL Upper Extremity Coordination Intact Upper Extremity Sensation Intact Upper Extremity Strength MS in [facility] -4/5 grossly graded. ADL-Treatment ADL-Current Pt participated in OT assessment . Pt needs min A in supine to sit at the EOB & min A from sit to stand due to unsteady balance, weakness, SOB & morbid obesity. ms IN [facility] 4/5 grossly graded. O2 dependent, fatigue soon, poor endurance. Therapy Code Descriptions/Definitions Functional [place] Measure: 0=Not Assessed/NA 4=Minimal Assistance 1=Total Assistance 5=Supervision or Setup 2=Maximal Assistance 6=Modified [place] 3=Moderate Assistance 7=Complete [place] Therapy Quality Codes: 6 Independent with activity with or without an assistive device 5 Patient requires set up or clean up by helper. Patient completes activity by themselves 4 Supervision or touching assist (CGA). [place] provide cues , steadying assist 3 The helper provides less than half the effort to complete the activity 2 The helper provides more than half the effort to complete the activity 1 Dependent. The helper does all the effort to complete an activity 7 Patient refused to complete or attempt activity 9 The patient did not perform the activity before the current illness or injury 88 Not attempted due to Medical conditions or safety concerns Eating (FIM): 7 Grooming (FIM): 6 Bathing (FIM): 0 Upper Body Dressing (FIM): 0 Lower Body Dressing (FIM): 0 Toileting (FIM): 0 Transfers (B, C, W/C) (FIM): 4 Toilet/Commode Transfer (FIM): 0 Tub Transfer (FIM): 0 Shower Transfer (FIM): 0 Education OT Patient Education: Correct positioning Teaching Recipient: Patient, Friend Teaching Methods: Demonstration Response to Teaching: Verbalize Understanding OT Short Term Goals Short Term Goals Time Frame: Sep 21, 2018 Eating(FIM): 7 Grooming(FIM): 7 Bathing(FIM): 4 Bathing Location: L Arm, R Arm, L Upper Leg, R Upper Leg, L Lower Leg ( including foot), R Lower Leg (including foot), Chest, Abdomen, Buttocks, Perineal Area Upper Body Dressing(FIM): 6 Lower Body Dressing(FIM): 5 Toileting(FIM): 7 Transfers (B,C,W/C) (FIM): 6 Toilet/Commode Transfer(FIM): 6 Tub Transfer(FIM): 0 Shower Transfer(FIM): 6 Additional Short Term Goals: 1-Demonstrate ADL Tasks, 2-Verbalize Understanding , 3-ImproveStrength/Ariel 1=Demonstrate adherence to instructed precautions during ADL tasks. 2=Patient will verbalize/demonstrate understanding of assistive devices/ modifications for ADL. 3=Patient will improve strength/tolerance for activity to enable patient to perform ADL's. OT Retirement Goals Dispatch Machine Runner Goals Time Frame: Oct 05, 2018 Eating (FIM): 7 Grooming(FIM): 7 Bathing(FIM): 7 Bathing Location: L Arm, R Arm, L Upper Leg, R Upper Leg, L Lower Leg ( including foot), R Lower Leg (including foot), Chest, Abdomen, Buttocks, Perineal Area Upper Body Dressing(FIM): 7 Lower Body Dressing(FIM): 7 Toileting(FIM): 7 Transfers (B,C,W/C) (FIM): 7 Toilet/Commode Transfer(FIM): 7 Tub Transfer(FIM): 7 Shower Transfer(FIM): 7 Additional Goals: 1-Demonstrate ADL Tasks, 2-Verbalize Understanding, 3- ImproveStrength/Ariel 1=Demonstrate adherence to instructed precautions during ADL tasks. 2=Patient will verbalize/demonstrate understanding of assistive devices/ modifications for ADL. 3=Patient will improve strength/tolerance for activity to enable patient to perform ADL's. OT Education/Plan Problem List/Assessment Assessment: Decreased Activ Tolerance, Decreased Safety Aware, Decreased UE Strength, Dependent Transfers, Impaired Bed Mobility, Impaired Funct Balance, Impaired Self-Care Skills Discharge Recommendations Plan/Recommendations: Continue POC Therapy D/C Recommendations: Home w/ Family Support Equpiment Recommendations-D/C: Extended Bath Bench, Extended Shower Sprayer, On Car Supervisor, [place] Patient/Family Goals To return home with Independently. Treatment Plan/Plan of Care Treatment,Training & Education: Yes Patient would benefit from OT for education, treatment and training to promote independence in ADL's, mobility, safety and/or upper extremity function for ADL' s. Treatment Duration: Oct 05, 2018 Frequency: 5 times per week Estimated Hrs Per Day: .25 hour per day Agreement: Yes Rehab Potential: Good Time/GCodes Start Time: 14:30 Stop Time: 14:48 Total Time Billed (hr/min): 18 Billed Treatment Time 1, EVM 18 minutes. DYLLAN GANT OT Sep 07, 2018 16:01
[2018-09-07] MEDS ORDERED: FINASTERIDE (PROSCAR) 5 MG TAB PO SCH (18:00)
[2018-09-07] MEDS ORDERED: TAMSULOSIN 0.4 MG (FLOMAX) CAP PO SCH (18:00)
[2018-09-07] MEDS ORDERED: GABAPENTIN 600 MG (NEURONTIN) TAB PO SCH (21:00)
[2018-09-08] VITALS (7 sets, daily range): BP systolic 110–122; BP diastolic 68–88
[2018-09-08] MEDS: NS IV 1000 ML 1,000 ML IV SCH ×2 (01:07→04:21)
[2018-09-08 04:00] LABS: BASOPHILS % (AUTO) 0 % (0-10); EOSINOPHILS # (AUTO) 0.1 10^3/uL (0.0-0.3); EOSINOPHILS % (AUTO) 0 % (0-10); HEMATOCRIT 34 % (40-54); LYMPHOCYTES # (AUTO) 2.1 X 10^3 (1.0-4.0); LYMPHOCYTES % (AUTO) 12 % (12-44); MEAN CORPUSCULAR HEMOGLOBIN 28 PG (25-34); MEAN CORPUSCULAR HGB CONC 33 G/DL (32-36); MEAN CORPUSCULAR VOLUME 87 FL (80-99); MEAN PLATELET VOLUME 9.4 FL (7.4-10.4); MONOCYTES # (AUTO) 1.9 X 10^3 (0.0-1.0); MONOCYTES % (AUTO) 11 % (0-12); NEUTROPHILS # (AUTO) 13.7 X 10^3 (1.8-7.8); NEUTROPHILS % (AUTO) 77 % (42-75); PLATELET COUNT 243 10^3/uL (130-400); RED CELL DISTRIBUTION WIDTH 14.9 % (10.0-14.5); WHITE BLOOD COUNT 17.8 10^3/uL (4.3-11.0)
[2018-09-08 04:28] LABS: CALCIUM 7.4 MG/DL (8.5-10.1); CREATININE SERUM 1.26 MG/DL (0.60-1.30); MAGNESIUM 1.8 MG/DL (1.8-2.4); PHOSPHORUS 3.6 MG/DL (2.3-4.7)
--- NOTE | 2018-09-08 05:08 | Pulmonary Progress Note ---
Subjective Time Seen by a Provider: 05:56 Subjective/Events-last exam Pt is doing better. Hypotension is now resolved. Sepsis Event Evaluation Height, Weight, BMI Height: 5'7.00" Weight: 306lbs. 4.0oz. [id number]; 46.6 BMI Method: Exam Exam Vital Signs Date Time Temp Pulse Resp B/P (MAP) Pulse Ox O2 Delivery O2 Flow Rate FiO2 09/08/18 05:00 116 24 115/68 (84) 98 Nasal Cannula 2.00 09/08/18 04:00 98.9 09/08/18 04:00 111 21 116/72 (87) 94 Nasal Cannula 2.00 09/08/18 04:00 Room Air 09/08/18 03:00 111 18 120/77 (91) 95 Nasal Cannula 2.00 09/08/18 02:00 113 22 122/82 (95) 94 Nasal Cannula 2.00 09/08/18 01:00 112 20 110/77 (88) 94 Nasal Cannula 2.00 09/08/18 01:00 112 09/08/18 00:00 112 18 122/88 (99) 97 Nasal Cannula 2.00 09/08/18 00:00 Room Air 09/07/18 23:00 112 21 107/58 (74) 92 Nasal Cannula 2.00 09/07/18 22:00 115 15 115/63 (80) 95 Nasal Cannula 2.00 09/07/18 21:00 114 109/72 (84) 98 Nasal Cannula 2.00 09/07/18 20:00 Room Air 09/07/18 20:00 113 17 105/74 (84) 94 Nasal Cannula 2.00 09/07/18 20:00 98.6 09/07/18 19:00 111 09/07/18 19:00 111 35 104/74 (84) 99 Nasal Cannula 2.00 09/07/18 17:00 111 17 109/74 (86) 98 Room Air 09/07/18 16:00 110 28 111/68 (82) 86 Room Air 09/07/18 15:00 114 7 97/71 (80) 96 Room Air 09/07/18 14:00 114 24 116/66 (83) 97 Room Air 09/07/18 13:00 110 24 124/71 (88) 91 Room Air 09/07/18 13:00 113 09/07/18 12:00 111 30 109/84 (92) 93 Room Air 09/07/18 11:00 130 30 108/90 (96) Room Air 09/07/18 10:00 110 18 120/79 (93) 91 Room Air 09/07/18 09:00 Room Air 09/07/18 09:00 106 20 113/54 (73) 94 Room Air 09/07/18 08:00 110 9 99/61 (74) 97 Room Air 09/07/18 07:00 109 6 107/73 (84) 97 Room Air 09/07/18 07:00 109 09/07/18 06:00 112 100/70 (80) 88 Room Air I & O 09/08/18 07:00 Intake Total 800 ml Output Total 925 ml Balance -125 ml Height & Weight Height: 5'7.00" Weight: 306lbs. 4.0oz. 138.684298sv; 46.6 BMI Method: General Appearance: No Apparent Distress, WD/WN, Chronically ill, Obese HEENT: PERRL/EOMI, Pharynx Normal Neck: Non Tender, Supple; No Carotid Bruit Respiratory: Lungs Clear, Normal Breath Sounds, No Accessory Muscle Use, No Respiratory Distress Cardiovascular: Regular Rate, Rhythm, No Edema, No Gallop, No Murmur, Normal Peripheral Pulses, Tachycardia Capillary Refill: Less Than 3 Seconds Gastrointestinal: normal bowel sounds, non tender, soft, no organomegaly, no pulsatile mass Extremity: Normal Capillary Refill, Normal Inspection Neurologic/Psychiatric: Alert, Oriented x3 Skin: Normal Color, Warm/Dry Lymphatic: No Adenopathy Results Lab Laboratory Tests 09/06/18 07:50 09/07/18 03:30 09/08/18 03:15 Assessment/Plan Assessment/Plan -Sinus tachycardia Hypotension -IVF to 150cc/hr -S/p thoracic lumbar surgery fusion and instrument removal and reinsertion -Pain control -Obesity with probable KIMANI - witnessed nocturnal hypoxia/apnea -Out patient testing -Acute renal failure - prerenal -IVF Leukocytosis -reactive PT is doing better. Will transfer to 4th floor. SAHIL ALDANA DO Sep 08, 2018 05:08
[2018-09-08] MEDS: PANTOPRAZOLE 40 MG (PROTONIX) VIAL IV SCH (06:12)
[2018-09-08] MEDS: inSUlin ASPART (NovoLOG) 1 UNIT/0.01 ML (CHARGE PER UNIT) SC SCH (06:12)
[2018-09-08] MEDS: MULTIVIT W/MINERALS TAB (THERAGRAN M) PO SCH ×2 (06:19→09:18)
--- NOTE | 2018-09-08 07:04 | Progress Note (SOAP) ---
Subjective Time Seen by a Provider: 07:02 Subjective/Events-last exam Pt states that he is doing okay. He is sore, but feels that the nerve pain he was having in his feet is better than before the surgery. Has been up with PT. Objective Exam Vital Signs Date Time Temp Pulse Resp B/P (MAP) Pulse Ox O2 Delivery O2 Flow Rate FiO2 09/08/18 06:00 115 15 113/68 (83) 96 Nasal Cannula 2.00 09/08/18 05:00 116 24 115/68 (84) 98 Nasal Cannula 2.00 09/08/18 04:00 98.9 09/08/18 04:00 111 21 116/72 (87) 94 Nasal Cannula 2.00 09/08/18 04:00 Room Air 09/08/18 03:00 111 18 120/77 (91) 95 Nasal Cannula 2.00 09/08/18 02:00 113 22 122/82 (95) 94 Nasal Cannula 2.00 09/08/18 01:00 112 20 110/77 (88) 94 Nasal Cannula 2.00 09/08/18 01:00 112 09/08/18 00:00 112 18 122/88 (99) 97 Nasal Cannula 2.00 09/08/18 00:00 Room Air 09/07/18 23:00 112 21 107/58 (74) 92 Nasal Cannula 2.00 09/07/18 22:00 115 15 115/63 (80) 95 Nasal Cannula 2.00 09/07/18 21:00 114 109/72 (84) 98 Nasal Cannula 2.00 09/07/18 20:00 Room Air 09/07/18 20:00 113 17 105/74 (84) 94 Nasal Cannula 2.00 09/07/18 20:00 98.6 09/07/18 19:00 111 09/07/18 19:00 111 35 104/74 (84) 99 Nasal Cannula 2.00 09/07/18 17:00 111 17 109/74 (86) 98 Room Air 09/07/18 16:00 110 28 111/68 (82) 86 Room Air 09/07/18 15:00 114 7 97/71 (80) 96 Room Air 09/07/18 14:00 114 24 116/66 (83) 97 Room Air 09/07/18 13:00 110 24 124/71 (88) 91 Room Air 09/07/18 13:00 113 09/07/18 12:00 111 30 109/84 (92) 93 Room Air 09/07/18 11:00 130 30 108/90 (96) Room Air 09/07/18 10:00 110 18 120/79 (93) 91 Room Air 09/07/18 09:00 Room Air 09/07/18 09:00 106 20 113/54 (73) 94 Room Air 09/07/18 08:00 110 9 99/61 (74) 97 Room Air I & O 09/08/18 07:00 Intake Total 1300 ml Output Total 1675 ml Balance -375 ml Capillary Refill : Less Than 3 Seconds General Appearance: No Apparent Distress, WD/WN Respiratory: No Respiratory Distress Extremity: Normal Range of Motion, No Calf Tenderness Neurologic/Psychiatric: Alert, Oriented x3, No Motor/Sensory Deficits Results Lab Laboratory Tests 09/07/18 12:01: Glucometer 150H 09/08/18 03:15: White Blood Count 17.8H, Red Blood Count 3.87L, Hemoglobin 11.0#L, Hematocrit 34L, Mean Corpuscular Volume 87, Mean Corpuscular Hemoglobin 28, Mean Corpuscular Hemoglobin Concent 33, Red Cell Distribution Width 14.9H, Platelet Count 243, Mean Platelet Volume 9.4, Neutrophils (%) (Auto) 77H, Lymphocytes (% ) (Auto) 12, Monocytes (%) (Auto) 11, Eosinophils (%) (Auto) 0, Basophils (%) ( Auto) 0, Neutrophils # (Auto) 13.7H, Lymphocytes # (Auto) 2.1, Monocytes # (Auto ) 1.9H, Eosinophils # (Auto) 0.1, Basophils # (Auto) 0.0, Sodium Level 133L, Potassium Level 4.0, Chloride Level 103, Carbon Dioxide Level 21, Anion Gap 9, Blood Urea Nitrogen 24H, Creatinine 1.26, Estimat Glomerular Filtration Rate 58 , BUN/Creatinine Ratio 19, Glucose Level 131H, Calcium Level 7.4L, Phosphorus Level 3.6, Magnesium Level 1.8 Microbiology 09/06/18 Acid Fast Bacilli Culture (Ref Lab - Preliminary, Resulted Assessment/Plan Assessment/Plan Assess & Plan/Chief Complaint Cbheskc-lfqmhi-nlwrpi fusion for non-union and deformity Morbid obesity, BMI > 45 complicating surgery and recovery Continue with PT and pain control Okay,from spine standpoint, to transfer to Inpt rehab when ready Clinical Quality Measures DVT/VTE Risk/Contraindication: Risk Factor Score Per Nursin RFS Level Per Nursing on Admit: 4+=Very High CLAUDIA MELENDREZ Sep 08, 2018 07:04
[2018-09-08] MEDS ORDERED: meTOproloL SUCCINATE 50 MG (TOPROL XL) TAB PO SCH (09:00)
[2018-09-08] MEDS: GABAPENTIN 600 MG (NEURONTIN) TAB PO SCH (09:18)
[2018-09-08] MEDS: BISACODYL 5 MG (DULCOLAX) TABLET PO PRN (09:18)
[2018-09-08] MEDS: DOCUSATE SODIUM 100 MG (COLACE) CAP PO SCH (09:18)
[2018-09-08] MEDS: CYCLOBENZAPRINE 10 MG (FLEXERIL) TAB PO SCH (09:18)
--- NOTE | 2018-09-08 10:22 | Discharge Summary-Hospitalist ---
Diagnosis/Chief Complaint Date of Admission Sep 06, 2018 at 07:04 Date of Discharge Discharge Date: Sep 08, 2018 Discharge Diagnosis (1) Nonunion of spinal fusion Status: Resolved (2) KIMANI (obstructive sleep apnea) Status: Chronic (3) Acute renal failure Status: Acute (4) Leukocytosis Status: Acute (5) Obesity Status: Chronic (6) History of BPH Status: Chronic (7) Diabetes mellitus Status: Chronic Discharge Summary Discharge Physical Exam Allergies: Coded Allergies: aspirin (Verified Allergy, Mild, UPSET STOMACH, 08/30/18) latex (Verified Allergy, Mild, HIVES, 08/30/18) Vitals & I&Os Vital Signs Date Time Temp Pulse Resp B/P (MAP) Pulse Ox O2 Delivery O2 Flow Rate FiO2 09/08/18 09:00 Room Air 09/08/18 08:00 121 26 93 2.00 09/08/18 04:00 98.9 General Appearance: WD/WN, Chronically ill, Moderate Distress (due to pain), Obese Respiratory: Lungs Clear, Normal Breath Sounds Cardiovascular: Regular Rate, Rhythm, No Edema Neurologic/Psychiatric: Alert, Oriented x3, No Motor/Sensory Deficits, Normal Mood/Affect Hospital Course Was the Problem List Reviewed?: Yes Hospital Course: Pt had an uneventful hospital course. He was admitted to the ICU due to the extensive hardware placement by Dr. Garcia that was uncomplicated in surgery two days prior. He remained with a fox catheter which will be discontinued once admitted to inpatient rehab and overall had resolution of the acute renal failure of creatinine of 1.6 its now 1.2 today and overall tolerating treatment plan with physical therapy meeting criteria for inpatient rehab. Pt will maintain on O2 at night since he is non compliant with his CPAP machine at home. I have restarted most of his home medications but continuing to hold Metformin due to renal insufficiency. Labs (last 24 hrs) Laboratory Tests 09/08/18 03:15: White Blood Count 17.8H, Red Blood Count 3.87L, Hemoglobin 11.0#L, Hematocrit 34L, Mean Corpuscular Volume 87, Mean Corpuscular Hemoglobin 28, Mean Corpuscular Hemoglobin Concent 33, Red Cell Distribution Width 14.9H, Platelet Count 243, Mean Platelet Volume 9.4, Neutrophils (%) (Auto) 77H, Lymphocytes (% ) (Auto) 12, Monocytes (%) (Auto) 11, Eosinophils (%) (Auto) 0, Basophils (%) ( Auto) 0, Neutrophils # (Auto) 13.7H, Lymphocytes # (Auto) 2.1, Monocytes # (Auto ) 1.9H, Eosinophils # (Auto) 0.1, Basophils # (Auto) 0.0, Sodium Level 133L, Potassium Level 4.0, Chloride Level 103, Carbon Dioxide Level 21, Anion Gap 9, Blood Urea Nitrogen 24H, Creatinine 1.26, Estimat Glomerular Filtration Rate 58 , BUN/Creatinine Ratio 19, Glucose Level 131H, Calcium Level 7.4L, Phosphorus Level 3.6, Magnesium Level 1.8 09/08/18 10:58: Glucometer 142H Microbiology 09/06/18 Acid Fast Bacilli Culture (Ref Lab - Preliminary, Resulted Patient resulted labs reviewed. Pending Labs Discussion & Recommendations Discharge Planning: <30 minutes discharge planning Discharge Home Medications: Active Scripts Active Reported Metformin HCl ER (Metformin HCl) 500 Mg Tab.er.24 500 Mg PO BID Finasteride 5 Mg Tablet 5 Mg PO 1800 Cyclobenzaprine HCl 10 Mg Tablet 10 Mg PO TID Tamsulosin HCl 0.4 Mg Cap.er.24h 0.4 Mg PO 1800 Metoprolol Succinate 50 Mg Tab.er.24h 50 Mg PO DAILY Coq-10 (Ubidecarenone) 100 Mg Capsule 200 Mg PO 1200 Gabapentin 600 Mg Tablet 1,800 Mg PO HS TAKE 3 (600MG) TABS AT HS Gabapentin 600 Mg Tablet 600 Mg PO 0800,1200 Instructions to patient/family Please see electronic discharge instructions given to patient. Clinical Quality Measures DVT/VTE Risk/Contraindication: Risk Factor Score Per Nursin RFS Level Per Nursing on Admit: 4+=Very High Problem Qualifiers (1) Acute renal failure: Acute renal failure type: unspecified Qualified Codes: N17.9 - Acute kidney failure, unspecified (2) Leukocytosis: Leukocytosis type: leukemoid reaction Qualified Codes: D72.823 - Leukemoid reaction (3) Obesity: Obesity type: due to excess calories Obesity classification: adult class 3 ( BMI >= 40) Serious obesity comorbidity presence: with serious comorbidity Body mass index: BMI 45.0-49.9 Qualified Codes: E66.01 - Morbid (severe) obesity due to excess calories; Z68.42 - Body mass index (BMI) 45.0-49.9, adult (4) Diabetes mellitus: Diabetes mellitus type: type 2 Diabetes mellitus prison insulin use: without prison use Diabetes mellitus complication status: without complication Qualified Codes: E11.9 - Type 2 diabetes mellitus without complications MODESTO SOLIS DO Sep 08, 2018 10:21
== END 2018-09-08 13:58 | DRG 457 ==
LOC: 4TH 09-06 07:04 → SURG 09-06 07:05 → EDSTATUS 09-06 07:30 → ICU 09-06 17:39
PROVIDERS: ADMIT Orthopaedic Surgery Orthopaedic Surgery of the Spine; ATTEND Orthopaedic Surgery Orthopaedic Surgery of the Spine
PROC: 0RG70AJ Fusion of 2 to 7 Thoracic Vertebral Joints with Interbody Fusion Device, Posterior Approach, Anterior Column, Open Approach (ICD-10-PCS; 2018-09-06)
PROC: 0RGA0AJ Fusion of Thoracolumbar Vertebral Joint with Interbody Fusion Device, Posterior Approach, Anterior Column, Open Approach (ICD-10-PCS; 2018-09-06)
PROC: 0SG00AJ Fusion of Lumbar Vertebral Joint with Interbody Fusion Device, Posterior Approach, Anterior Column, Open Approach (ICD-10-PCS; 2018-09-06)
PROC: 0SG10AJ Fusion of 2 or more Lumbar Vertebral Joints with Interbody Fusion Device, Posterior Approach, Anterior Column, Open Approach (ICD-10-PCS; 2018-09-06)
PROC: 0SG30AJ Fusion of Lumbosacral Joint with Interbody Fusion Device, Posterior Approach, Anterior Column, Open Approach (ICD-10-PCS; 2018-09-06)
PROC: 0RP Upper Joints, Removal (ICD-10-PCS; 2018-09-06)
PROC: 0QH204Z Insertion of Internal Fixation Device into Right Pelvic Bone, Open Approach (ICD-10-PCS; 2018-09-06)
PROC: 0QH304Z Insertion of Internal Fixation Device into Left Pelvic Bone, Open Approach (ICD-10-PCS; 2018-09-06)
PROC: 0RG60AJ Fusion of Thoracic Vertebral Joint with Interbody Fusion Device, Posterior Approach, Anterior Column, Open Approach (ICD-10-PCS; principal; 2018-09-06 08:34)
DX: M96.0 Pseudarthrosis after fusion or arthrodesis (principal); T84.216A Breakdown (mechanical) of internal fixation device of vertebrae, initial encounter; N17.9 Acute kidney failure, unspecified; E66.01 Morbid (severe) obesity due to excess calories; Z68.42 Body mass index [BMI] 45.0-49.9, adult; E11.9 Type 2 diabetes mellitus without complications; I25.10 Atherosclerotic heart disease of native coronary artery without angina pectoris; I10 Essential (primary) hypertension; E78.00 Pure hypercholesterolemia, unspecified; R00.0 Tachycardia, unspecified; I95.9 Hypotension, unspecified; R11.2 Nausea with vomiting, unspecified; E83.39 Other disorders of phosphorus metabolism; G47.33 Obstructive sleep apnea (adult) (pediatric); Z91.19 Patient's noncompliance with other medical treatment and regimen
CPT/HCPCS: 36415; 80048; 80053; 82962; 83735; 84100; 85007; 85025; 85027; 86850; 86900; 86901; 86920; 87070; 87075; 87077; 87101; 87116; 87205; 87206; 94664

== ENCOUNTER 2018-08-30 10:20 | Outpatient (CLI) | payer MEDICARE, OTHER ==
[~2018-08-30] VITALS: Ht 170.2 cm; Wt 134.9 kg
[2018-08-30] MEDS ORDERED: TAMS0.4C2 PO (10:33)
[2018-08-30] MEDS ORDERED: METF-397 PO (10:33)
[2018-08-30] MEDS ORDERED: METO-370 PO (10:33)
[2018-08-30] MEDS ORDERED: FINA5TAB6 PO (10:33)
[2018-08-30] MEDS ORDERED: CYCL10TA9 PO (10:33)
[2018-08-30 10:37] VITALS: BP 123/94
[2018-08-30] MEDS ORDERED: METF-478 PO (11:11)
== END 2018-08-30 14:04 | disposition home or self-care (01) ==
LOC: PREOP 10:20
PROVIDERS: ATTEND Orthopaedic Surgery Orthopaedic Surgery of the Spine
DX: Z01.812 Encounter for preprocedural laboratory examination (principal); Z11.2 Encounter for screening for other bacterial diseases; M96.0 Pseudarthrosis after fusion or arthrodesis
CPT/HCPCS: 86850; 86900; 86901; 87081

== ENCOUNTER 2018-09-08 11:50 | Inpatient (IN) | payer MEDICARE, OTHER ==
[~2018-09-08] VITALS: Ht 170.2 cm; Wt 140.8 kg
[~2018-09-08 11:50] MED LIST changes: +CYCL10TA9 PO; +FINA5TAB6 PO; +METF-397 PO; +METF-478 PO; +METO-370 PO; +TAMS0.4C2 PO
--- NOTE | 2018-09-08 13:10 | NUR ---
ANNMARIE ANNE admitted to room 224-1, with an admitting diagnosis of FIXATION HARDWARE IN SPINE, on 09/08/18 from [facility] ICU via , accompanied by STAFF. ANNMARIE ANNE introduced to surroundings, call light, bed controls, phone, TV, temperature control, lights, meal times, smoking policy, visitor policy, side rail policy, bathrooms and showers. Patient Rights given to patient in the handbook.ANNMARIE ANNE verbalizes understanding that [facility] [place] is not responsible for the loss or damage to any personal effects or valuables that are kept in the patients posession during their hospitalization. The following Patient Care Plans were discussed with the PT: Discharge Planning AND IMPAIRED MOBILITY.
[2018-09-08] MEDS ORDERED: diphenhydrAMINE 25 MG TAB (BENADRYL) PO PRN (13:45)
[2018-09-08] MEDS ORDERED: ALPRAZolam 0.25 MG (XANAX) TAB PO PRN (13:45)
[2018-09-08] MEDS ORDERED: ONDANSETRON 4 MG/2 ML (SDV) Z0FRAN IVP PRN (13:45)
[2018-09-08] MEDS ORDERED: HYDROcodone/APAP 5 MG/325 MG (LORTAB) TAB PO PRN (13:45)
[2018-09-08] MEDS ORDERED: morphine INJ 4 MG/ML 1 ML (VIAL/SYRINGE) IVP PRN (13:45)
[2018-09-08] MEDS ORDERED: CALCIUM CARBONATE 500 MG (TUMS) TAB.CHEW PO PRN (13:45)
[2018-09-08] MEDS ORDERED: MELATONIN 3 MG TABLET PO PRN (13:45)
--- NOTE | 2018-09-08 13:47 | Physical Therapy Evaluation ---
PT Evaluation-General Medical Diagnosis Admission Date Sep 08, 2018 at 13:34 Medical Diagnosis: Mozwzgl-srxuu-vekjcw Union Onset Date: Sep 06, 2018 Therapy Diagnosis Therapy Diagnosis: Decreased mobility, gait deviation Height/Weight Height (Feet): 5 Height (Inches): 7.00 Weight (Pounds): 306 Weight (Ounces): 4.0 Precautions Precautions/Isolations: Standard Precautions Weight Bear Status Right Lower Extremity: Right Weight Bearing/Tolerated Left Lower Extremity: Left Weight Bearing/Tolerated Referral Physician: Dr. Alejandro Reason for Referral: Evaluation/Treatment Medical History Pertinent Medical History: Arthritis, DM, HTN, OA Additional Medical History Current History Pt had union surgery on thursday, transferred from ICU to IRF. Reviewed History: Yes Social History Home: Single Level Current Living Status: Spouse Entry Into Home: Stairs With Railing PT Steps Into Home: 4 Prior/Core FIM Prior Level of Function Therapy Code Descriptions/Definitions Functional Knott Measure: 0=Not Assessed/NA 4=Minimal Assistance 1=Total Assistance 5=Supervision or Setup 2=Maximal Assistance 6=Modified Knott 3=Moderate Assistance 7=Complete Knott Therapy Quality Codes: 6 Independent with activity with or without an assistive device 5 Patient requires set up or clean up by helper. Patient completes activity by themselves 4 Supervision or touching assist (CGA). [place] provide cues , steadying assist 3 The helper provides less than half the effort to complete the activity 2 The helper provides more than half the effort to complete the activity 1 Dependent. The helper does all the effort to complete an activity 7 Patient refused to complete or attempt activity 9 The patient did not perform the activity before the current illness or injury 88 Not attempted due to Medical conditions or safety concerns Functional Abilities and Goals: Independent: Patient completed the activities by him/herself, with or without an assistive device, with no assistance from a helper. Needed Some Help: Patient needed partial assistance from another person to complete activities. Dependent: A helper completed the activities for the patient. Unknown: Not Applicable: Bed Mobility: 7 Transfers (B,C,W/C) (FIM): 7 Gait: 7 Stairs: 7 Indoor Mobility (Ambulation): Independent Stairs: Independent Prior Devices Use: None PT Evaluation-Current Subjective Pt in recliner in ICU 3 and agrees to PT. Pain Numeric Pain Scale: 10-Worst Possible Pain Location Body Site: Thigh (bilateral) Comment: Pt reports bilateral thigh mm pain more than back pain currently Pt/Family Goals Pt to return home. Objective Patient Orientation: Person, Place, Situation, Normal For Age Attachments: Sotomayor Catheter ROM/Strength ROM Lower Extremities NT due to pain Strenght Lower Extremities NT due to pain Integumentary/Posture Bladder Incontinence: Sotomayor Cath Neuromuscular (Tone, Coordination, Reflexes) NT Sensory Vision: Functional Hearing: Functional Sensation Right Lower Extremit: Intact Sensation Left Lower Extremity: Intact Transfers Therapy Code Descriptions/Definitions Functional Knott Measure: 0=Not Assessed/NA 4=Minimal Assistance 1=Total Assistance 5=Supervision or Setup 2=Maximal Assistance 6=Modified Knott 3=Moderate Assistance 7=Complete Knott Therapy Quality Codes: 6 Independent with activity with or without an assistive device 5 Patient requires set up or clean up by helper. Patient completes activity by themselves 4 Supervision or touching assist (CGA). [place] provide cues , steadying assist 3 The helper provides less than half the effort to complete the activity 2 The helper provides more than half the effort to complete the activity 1 Dependent. The helper does all the effort to complete an activity 7 Patient refused to complete or attempt activity 9 The patient did not perform the activity before the current illness or injury 88 Not attempted due to Medical conditions or safety concerns Transfers (B, C, W/C) (FIM): 4 Scootin Rollin Roll Left to Right (QC): 3 Supine to/from Sit: 4 Sit to/from Stand: 4 Sit to Lying (QC): 3 Lying to Sitting/Side of Bed(Q: 3 Sit to Stand (QC): 3 Chair/Hli-ts-Fszov Xfer(QC): 3 Car Transfer (QC): 3 Patient performs bed mobility with min assist, supine <-> sit with min assist, sit <-> stand with min assist, stand pivot with min assist, car transfer min assist. Gait Does the Patient Walk?: Yes Mode of Locomotion: Walk Anticipated Mode of Locomotion: Walk Gait (FIM): 2 Distance (FIM): 2=425-25 ft Walk 10 feet (QC): 4 Walk 50 ft with 2 Turns(QC): 4 Walking 10ft/uneven surface-QC: 4 Distance: 100' Gait Level of Assist: 4 Gait Persons Needed: 1 Gait Assistive Device: FWW Comments/Gait Description Pt wide MARY and toe out gait pattern Patient can ambulate 100' with a rolling walker with CGA (including 50' with at least 2 turns of 90 degrees and 10' over an uneven surface). Wheelchair Training Does the Pt Use a Wheelchair?: No Stairs Stairs (FIM): 1 #of Steps: 1 Level of Assist: 4 1 Step (curb) (QC): 4 Assistive Device: Walker Patient can go up an down 1 step using a rolling walker with CGA. Balance Sitting Static: Good Sitting Dynamic: Good Standing Static: Good Standing Dynamic: Fair Assessment/Needs Pt is able to transfer sit<>stand with min A to FWW. Pt amb with FWW up to 100' x2 with CGA for safety. Pt has had 9 total back surgeries and is very good with his precautions and indep with back brace don/doff. Pt will continue therapy with ASSISTANT AUDITOR . Vitals after getting to rehab are O2 is 93% and blood pressure is 123 /70. Rehab Potential: Fair Post Rehab Potential-Barriers: co-morbidities PT Short Term Goals Short Term Goals Time Frame: Sep 15, 2018 Transfers (B,C,W/C) (FIM): 4 Gait (FIM): 4 Distance (FIM): 3=150 ft Gait Distance Comment: 150' Gait Level of Assist: 4 Gait Assistive Device: FWW PT Custodial Goals Custodial Goals PT Custodial Goals Time Frame: Sep 29, 2018 Transfers (B,C,W/C) (FIM): 5 Sit to Lying (QC): 4 Lying-Sitting on Side/Bed(QC): 4 Sit to Stand (QC): 4 Rollin Roll Left to Right (QC): 4 Chair/Mbr-oc-Chwfp Xfer(QC): 4 Car Transfer (QC): 4 Does the Patient Walk: Yes Gait (FIM): 5 Gait distance (FIM): 3=150 ft Distance: 300' Walk 10 feet (QC): 4 Walk 10ft-Uneven Surface(QC): 4 Walk 50ft with 2 Turns (QC): 4 Walk 150 ft (QC): 4 Gait Level of Assist: 5 Gait Assistive Device: FWW Stairs (FIM): 2 # of Steps: 4 1 Step (curb) (QC): 4 4 Steps (QC): 4 Stairs Level Of Assist: 5 PT Plan Problem List Problem List: Activity Tolerance, Functional Strength, Safety, Balance, Gait, Transfer, Bed Mobility, ROM Treatment/Plan Treatment Plan: Continue Plan of Care Treatment Plan: Bed Mobility, Education, Functional Activity Ariel, Functional Strength, Group Therapy, Gait, Safety, Therapeutic Exercise, Transfers Treatment Duration: Sep 29, 2018 Frequency: At least 5 of 7 days/Wk (IRF) Estimated Hrs Per Day: 1.5 hours per day Patient and/or Family Agrees t: Yes Safety Risks/Education Patient Education: Gait Training, Transfer Techniques, Steps, Correct Positioning, Reviewed Don/Doff Brace, Safety Issues Teaching Recipient: Patient, Family Teaching Methods: Demonstration, Discussion Response to Teaching: Reinforcement Needed Discharge Recommendations Plan Patient will perform bed mobility and transfer training, balance and endurance training, functional strengthening, stair training, gait training, and education , to improve functional mobility and independence at home. Therapy D/C Recommendations: Home w/ Family Support Time/GCodes Time In: 1300 Time Out: 1330 Total Billed Treatment Time: 30 Total Billed Treatment 1 visit EVL 10 min FA 20 min CHAPO CHAWLA PT Sep 08, 2018 13:47
--- NOTE | 2018-09-08 14:30 | Physical Therapy Daily Note ---
PT Daily Note-Current Subjective Pt. agrees to Rx. Pt. rates his pain in bilat thighs and hips at 7.5/10 that he states is radiating from his back. Pt. also states that he has not had a BM since Thursday morning and feels this contributes to his back pain. This info was forwarded to the nurse. Pain Numeric Pain Scale: 7 Location: Left (and right) Location Body Site: Thigh (and hips) Pain Description: Stabbing Appearance eyes mostly closed, deep sighs and moaning. Mental Status Patient Orientation: Normal For Age Attachments: Other-See Comments (back brace) Transfers Therapy Code Descriptions/Definitions Functional Moran Measure: 0=Not Assessed/NA 4=Minimal Assistance 1=Total Assistance 5=Supervision or Setup 2=Maximal Assistance 6=Modified Moran 3=Moderate Assistance 7=Complete Moran Therapy Quality Codes: 6 Independent with activity with or without an assistive device 5 Patient requires set up or clean up by helper. Patient completes activity by themselves 4 Supervision or touching assist (CGA). [place] provide cues , steadying assist 3 The helper provides less than half the effort to complete the activity 2 The helper provides more than half the effort to complete the activity 1 Dependent. The helper does all the effort to complete an activity 7 Patient refused to complete or attempt activity 9 The patient did not perform the activity before the current illness or injury 88 Not attempted due to Medical conditions or safety concerns Transfers (B, C, W/C) (FIM): 4 Sit to/from Stand: 4 pt. needs higher surface for sit to stand TRFs. Pt. put in room with lift recline chair and was instructed in its use. Weight Bearing Right Lower Extremity: Right Weight Bearing/Tolerated Left Lower Extremity: Left Weight Bearing/Tolerated Gait Training Does the Patient Walk?: Yes Gait (FIM): 4 Distance (FIM): 3=150 ft (170,40) Gait Level of Assist: 4 Gait Persons Needed: 1 Gait Assistive Device: FWW pt. slow, needs cues to slow his gait and keep feet inside device for safety etc Exercises Supine Ex: Ankle pumps, Quad Set, Glut sets, Heel Slides, Scooting, Hip abd/add Supine Reps: 15 Seated Therapy Exercises: Ankle pumps, Sit to stand, Long arc quads, Hip flexion, Hip abd/add Seated Reps: 10 Assessment Current Status: Fair Progress pain greatly limits pts participation this Rx. PT Short Term Goals Short Term Goals Time Frame: Sep 15, 2018 Transfers (B,C,W/C) (FIM): 4 Gait (FIM): 4 Distance (FIM): 3=150 ft Gait Distance Comment: 150' Gait Level of Assist: 4 Gait Assistive Device: FWW PT Mcfp Goals Film Or Videotape Editor Goals PT Film Or Videotape Editor Goals Time Frame: Sep 29, 2018 Transfers (B,C,W/C) (FIM): 5 Sit to Lying (QC): 4 Lying-Sitting on Side/Bed(QC): 4 Sit to Stand (QC): 4 Rollin Roll Left to Right (QC): 4 Chair/Gmw-ax-[place] Xfer(QC): 4 Car Transfer (QC): 4 Does the Patient Walk: Yes Gait (FIM): 5 Gait distance (FIM): 3=150 ft Distance: 300' Walk 10 feet (QC): 4 Walk 10ft-Uneven Surface(QC): 4 Walk 50ft with 2 Turns (QC): 4 Walk 150 ft (QC): 4 Gait Level of Assist: 5 Gait Assistive Device: FWW Stairs (FIM): 2 # of Steps: 4 1 Step (curb) (QC): 4 4 Steps (QC): 4 Stairs Level Of Assist: 5 PT Plan Treatment/Plan Treatment Plan: Continue Plan of Care Treatment Plan: Bed Mobility, Education, Functional Activity Ariel, Functional Strength, Group Therapy, Gait, Safety, Therapeutic Exercise, Transfers Treatment Duration: Sep 29, 2018 Frequency: At least 5 of 7 days/Wk (IRF) Estimated Hrs Per Day: 1.5 hours per day Patient and/or Family Agrees t: Yes Safety Risks/Education Patient Education: Gait Training, Transfer Techniques, Correct Positioning, Disease Process, Safety Issues Teaching Recipient: Patient Teaching Methods: Demonstration, Discussion Response to Teaching: Verbalize Understanding, Return Demonstration, Reinforcement Needed pt. was educated in the policies and practices of the Rehab unit as well as hoe to utilize the lift recline chair to achieve near 0 grav position for comfort Time/GCodes Time In: 1330 Time Out: 1430 Total Billed Treatment Time: 60 Total Billed Treatment 1,EX25m,GT15m,FA20m G Codes Necessary: No [facility] PTA Sep 08, 2018 14:30
--- NOTE | 2018-09-08 15:00 | NUR ---
CLARIFIED WITH DR. BRANDT AND SHARON FOR PATIENT TO SHOWER.
[2018-09-08] MEDS ORDERED: BISACODYL 5 MG (DULCOLAX) TABLET PO PRN (15:45)
[2018-09-08] MEDS ORDERED: DIAZEPAM 5 MG (VALIUM) TABLET PO PRN (15:45)
[2018-09-08] MEDS ORDERED: ONDANSETRON 4 MG/2 ML (SDV) Z0FRAN IV PRN (15:45)
--- NOTE | 2018-09-08 15:48 | Occupational Therapy Eval ---
OT Evaluation-General/PLF Medical Diagnosis Admission Date Sep 08, 2018 at 13:34 Medical Diagnosis: Baalaya-gyqpf-xuvzwl [place] Date: Sep 06, 2018 Therapy Diagnosis Therapy Diagnosis: weakness Height/Weight Height (Feet): 5 Height (Inches): 7.00 Weight (Pounds): 306 Weight (Ounces): 4.0 Precautions Precautions/Isolations: Fall Prevention, Standard Precautions Safety Interventions: Bed Exit Alarm Weight Bear Status Weight Bearing Restriction: Full Weight Bearing Location Restriction: L LE, R LE Referral Physician: Dr. Alejandro Referral Reason: Activity Tolerance, Self Care, Evaluation/Treatment, Strengthening/ROM Medical History Pertinent Medical History: Arthritis, DM, HTN, OA Current History Patient transfer from ICU to Acute Rehab today for OT/PT/ST . Reviewed History: Yes Social History Home: Single Level Current Living Status: Spouse Entry Into Home: Stairs With Railing Steps Into Home: 4 ADL-Prior Level of Function Therapy Code Descriptions/Definitions Functional Nash Measure: 0=Not Assessed/NA 4=Minimal Assistance 1=Total Assistance 5=Supervision or Setup 2=Maximal Assistance 6=Modified Nash 3=Moderate Assistance 7=Complete Nash Therapy Quality Codes: 6 Independent with activity with or without an assistive device 5 Patient requires set up or clean up by helper. Patient completes activity by themselves 4 Supervision or touching assist (CGA). [place] provide cues , steadying assist 3 The helper provides less than half the effort to complete the activity 2 The helper provides more than half the effort to complete the activity 1 Dependent. The helper does all the effort to complete an activity 7 Patient refused to complete or attempt activity 9 The patient did not perform the activity before the current illness or injury 88 Not attempted due to Medical conditions or safety concerns Functional Abilities and Goals: Independent: Patient completed the activities by him/herself, with or without an assistive device, with no assistance from a helper. Needed Some Help: Patient needed partial assistance from another person to complete activities. Dependent: A helper completed the activities for the patient. Unknown: Not Applicable: Self Care: Independent Functional Cognition: Independent DME/Equipment: Bath Bench, Grab Bars Drive Self: Yes OT Current Status Subjective Pt in recliner, alert, oriented, cooperative & agree for OT Assessment, shower & ambulation with FWW. Pain Numeric Pain Scale: 4 Location: Bone Location Body Site: Back Pain Description: Pressure, Radiating Mental Status/Objective Patient Orientation: Person, Place, Time Attachments: Sotomayor Catheter, Saline Lock Current Glasses/Contacts: No Hearing Aids: No Dentures/Partials: No Hand Dominance: Right Upper Extremity ROM WFL Upper Extremity Coordination Intact Upper Extremity Sensation Intact Upper Extremity Strength MS in [facility] -4/5 grossly graded. ADL-Treatment ADL-Current Pt participated in OT initial FIM assessment in shower activity, func transfers, bed mobility, func ambulation, dressing ,grooming & thera-Ex BUE . Pt needs mod A in shower as he fatigue soon & cannot reach Lower body & feet , Legs & buttocks & back . Provided long handled bath -sponge & Silk Brusher Pt needs min A sit to stand with FWW. MS in E -4/5 grossly graded. Endurance -fair. Eating (FIM): 7 Eating (QC): 6 Grooming (FIM): 6 Oral Hygiene (QC): 6 Bathing (FIM): 3 Bathing Location: L Arm, R Arm, L Upper Leg, R Upper Leg, L Lower Leg ( including foot), R Lower Leg (including foot), Chest, Abdomen, Buttocks, Perineal Area Shower/Bathe Self (QC): 3 Upper Body Dressing (FIM): 5 Upper Body Dressing (QC): 5 Lower Body Dressing (FIM): 4 Lower Body Dressing (QC): 4 On/Off Footwear (QC): 4 Toileting (FIM): 6 Toileting Hygiene (QC): 5 Transfers (B, C, W/C) (FIM): 4 Toilet/Commode Transfer (FIM): 4 Toilet Transfer (QC): 5 Tub Transfer (FIM): 0 Shower Transfer (FIM): 4 Education OT Patient Education: Correct positioning, Safety issues Teaching Recipient: Patient Teaching Methods: Demonstration Response to Teaching: Verbalize Understanding, Return Demonstration OT Short Term Goals Short Term Goals Time Frame: Sep 22, 2018 Eating(FIM): 7 Grooming(FIM): 7 Bathing(FIM): 5 Bathing Location: L Arm, R Arm, L Upper Leg, R Upper Leg, L Lower Leg ( including foot), R Lower Leg (including foot), Chest, Abdomen, Buttocks, Perineal Area Upper Body Dressing(FIM): 6 Lower Body Dressing(FIM): 5 Toileting(FIM): 7 Transfers (B,C,W/C) (FIM): 4 Toilet/Commode Transfer(FIM): 7 Tub Transfer(FIM): 0 Shower Transfer(FIM): 7 Additional Short Term Goals: 1-Demonstrate ADL Tasks, 2-Verbalize Understanding , 3-ImproveStrength/Ariel 1=Demonstrate adherence to instructed precautions during ADL tasks. 2=Patient will verbalize/demonstrate understanding of assistive devices/ modifications for ADL. 3=Patient will improve strength/tolerance for activity to enable patient to perform ADL's. OT Fci Goals Fci Goals Time Frame: Oct 06, 2018 Eating (FIM): 7 Eating (QC): 6 Groomin Oral Hygiene (QC): 6 Bathing(FIM): 7 Bathing Location: L Arm, R Arm, L Upper Leg, R Upper Leg, L Lower Leg ( including foot), R Lower Leg (including foot), Chest, Abdomen, Buttocks, Perineal Area Shower/Bathe Self (QC): 6 Upper Body Dressing(FIM): 7 Upper Body Dressing (QC): 6 Lower Body Dressing(FIM): 7 Lower Body Dressing (QC): 6 On/Off Footwear (QC): 6 Toileting(FIM): 7 Toileting Hygiene (QC): 6 Transfers (B,C,W/C) (FIM): 7 Toilet/Commode Transfer(FIM): 7 Toilet/Commode Transfer (QC): 6 Tub Transfer(FIM): 7 Shower Transfer(FIM): 7 Additional Goals: 1-Demonstrate ADL Tasks, 2-Verbalize Understanding, 3- ImproveStrength/Ariel 1=Demonstrate adherence to instructed precautions during ADL tasks. 2=Patient will verbalize/demonstrate understanding of assistive devices/ modifications for ADL. 3=Patient will improve strength/tolerance for activity to enable patient to perform ADL's. OT Education/Plan Problem List/Assessment Assessment: Decreased Activ Tolerance, Decreased Safety Aware, Decreased UE Strength, Dependent Transfers, Impaired Bed Mobility, Impaired Funct Balance, Impaired Self-Care Skills Discharge Recommendations Plan/Recommendations: Continue POC Therapy D/C Recommendations: Home w/ Family Support Equpiment Recommendations-D/C: Extended Bath Bench, Extended Shower Sprayer, Silk Brusher, Long [place] Barriers to Progress Morbid Obesity, Fatigue soon, Fair endurance. Patient/Family Goals To return home Independently with with AD. Treatment Plan/Plan of Care Treatment,Training & Education: Yes Patient would benefit from OT for education, treatment and training to promote independence in ADL's, mobility, safety and/or upper extremity function for ADL' s. Plan of Care: ADL Retraining, Caregiver Training, Functional Mobility, Group Exercise/Act as Ind, UE Funct Exercise/Act, UE Neuromus Re-Ed/Coord Treatment Duration: Oct 06, 2018 Frequency: 5 times per week Estimated Hrs Per Day: 1.5 hours per day Agreement: Yes Rehab Potential: Good Time/GCodes Start Time: 14:30 Stop Time: 16:00 Total Time Billed (hr/min): 90 Billed Treatment Time 1, EVM1, ADL 45 min, FA 15 min, Ex 15 min. Total 90 Minutes. DYLLAN GANT OT Sep 08, 2018 15:48
[2018-09-08] MEDS: inSUlin ASPART (NovoLOG) 1 UNIT/0.01 ML (CHARGE PER UNIT) SC SCH ×2 (16:00→21:42)
--- NOTE | 2018-09-08 16:20 | NUR ---
GANDARA CATHETER BÁRBARA'Bhargav.
[2018-09-08 16:30] VITALS: BP 111/75
--- NOTE | 2018-09-08 16:30 | NUR ---
TEMP 101.7 AND HR 115. DRS. BRANDT AND IRMA NOTIFIED. STATES TO BE EXPECTED AND TO TX WITH TYLENOL AND I.S.
--- NOTE | 2018-09-08 17:15 | NUR ---
MEDICATED WITH TYLENOL. DOES I.S. WELL. FAMILY AT BEDSIDE. ASSISTED UP TO BATHROOM. LARGE, LOOSE STOOL.
[2018-09-08] MEDS: FINASTERIDE (PROSCAR) 5 MG TAB PO SCH (17:17)
[2018-09-08] MEDS: ACETAMINOPHEN 325 MG TABLET PO PRN (17:17)
[2018-09-08] MEDS: TAMSULOSIN 0.4 MG (FLOMAX) CAP PO SCH (17:17)
[2018-09-08 18:00] VITALS: BP 106/73
--- NOTE | 2018-09-08 18:00 | NUR ---
TEMP 99.6 NOW.
--- NOTE | 2018-09-08 19:00 | NUR ---
HAS DENIED NEED TO VOID SINCE GANDARA CATHETER DC'D.
[2018-09-08] MEDS: DOCUSATE SODIUM 100 MG (COLACE) CAP PO SCH (21:28)
[2018-09-08] MEDS: CYCLOBENZAPRINE 10 MG (FLEXERIL) TAB PO SCH (21:28)
[2018-09-08] MEDS: GABAPENTIN 600 MG (NEURONTIN) TAB PO SCH (21:28)
--- NOTE | 2018-09-09 00:44 | NUR ---
WAS ABLE TO VOID IN TOILET
[2018-09-09 06:10] VITALS: BP 101/63
[2018-09-09 06:10] LABS: BASOPHILS % (AUTO) 0 % (0-10); EOSINOPHILS # (AUTO) 0.1 10^3/uL (0.0-0.3); EOSINOPHILS % (AUTO) 1 % (0-10); HEMATOCRIT 33 % (40-54); HEMOGLOBIN 10.4 G/DL (13.3-17.7); LYMPHOCYTES # (AUTO) 1.7 X 10^3 (1.0-4.0); LYMPHOCYTES % (AUTO) 12 % (12-44); MEAN CORPUSCULAR HEMOGLOBIN 28 PG (25-34); MEAN CORPUSCULAR HGB CONC 32 G/DL (32-36); MEAN CORPUSCULAR VOLUME 87 FL (80-99); MEAN PLATELET VOLUME 9.1 FL (7.4-10.4); MONOCYTES # (AUTO) 1.3 X 10^3 (0.0-1.0); MONOCYTES % (AUTO) 9 % (0-12); NEUTROPHILS # (AUTO) 10.8 X 10^3 (1.8-7.8); NEUTROPHILS % (AUTO) 78 % (42-75); PLATELET COUNT 254 10^3/uL (130-400); RED CELL DISTRIBUTION WIDTH 15.3 % (10.0-14.5); WHITE BLOOD COUNT 13.8 10^3/uL (4.3-11.0)
[2018-09-09] MEDS: inSUlin ASPART (NovoLOG) 1 UNIT/0.01 ML (CHARGE PER UNIT) SC SCH ×4 (06:13→20:48)
[2018-09-09 06:31] LABS: ALANINE AMINOTRANSFERASE 26 U/L (0-55); ALBUMIN 2.9 GM/DL (3.2-4.5); ALKALINE PHOSPHATASE 82 U/L (40-136); BILIRUBIN,TOTAL 0.5 MG/DL (0.1-1.0); BUN/CREATININE RATIO 20; CALCIUM 7.9 MG/DL (8.5-10.1); CARBON DIOXIDE 23 MMOL/L (21-32); CHLORIDE 101 MMOL/L (98-107); CREATININE SERUM 1.08 MG/DL (0.60-1.30); GFR ESTIMATED > 60; GLUCOSE 148 MG/DL (70-105); POTASSIUM 3.5 MMOL/L (3.6-5.0); SODIUM 134 MMOL/L (135-145); TOTAL PROTEIN 5.9 GM/DL (6.4-8.2)
[2018-09-09] MEDS: MULTIVIT W/MINERALS TAB (THERAGRAN M) PO SCH (06:32)
--- NOTE | 2018-09-09 07:56 | PM&R H&P / Post Admit Assess ---
History of Present Illness HPI/Chief Complaint CC: Severe debility following an extensive C3-6 Laminectomy and C3-T2 PSF with instrumentation uncomplicated by Dr Garcia POD # 3 HPI: This is a 63-year-old white male who presented to inpatient rehabilitation due to severe debility following extensive spine surgery with hardware placement. He required ICU monitoring due to the profound impact the procedure had placing him at risk for acute blood loss, respiratory failure and arrhythmia. He did well during ICU stay did have acute renal failure creatinine 1.6 but that resolved with aggressive IV fluids. He is noncompliant with obstructive sleep apnea treatment with CPAP and he was maintain on oxygen during ICU stay. Pain was controlled and he minimized the amount of pain medication he took which is been very helpful in a more rapid recovery but still needed aggressive physical therapy and management in the inpatient rehabilitation unit. Currently patient is doing well pain is controlled and I have reordered metformin home medication due to resolution of acute renal failure. Source: patient Exam Limitations: no limitations Date Seen 09/09/18 Time Seen by a Provider: 08:00 Attending Physician [place] Solis DO PCP Jase Diaz DO Referring Physician Date of Admission Sep 08, 2018 at 13:34 Home Medications & Allergies Home Medications Reviewed patient Home Medication Reconciliation performed by pharmacy medication reconciliations vocational rehabilitation technician and/or nursing. Patients Allergies have been reviewed. Allergies Allergies Coded Allergies aspirin (Verified Allergy, Mild, UPSET STOMACH, 08/30/18) latex (Verified Allergy, Mild, HIVES, 08/30/18) Past [place] Hx Past Med/Social Hx: Reviewed Nursing Past Med/Soc Hx, Reviewed and Corrections made Patient Social History Marrital Status: Employed/Student: unemployed Alcohol Use: Denies Use Recreational Drug Use: No Smoking Status: Former Smoker Physical Abuse Screen: No Sexual Abuse: No Recent Foreign Travel: No Contact w/other who traveled: No Recent Hopitalizations: Yes (BACK SURGERY) Recent Infectious Disease Expo: No Immunizations Up To Date Tetanus Booster (TDap): More than 5yrs Date of Pneumonia Vaccine: Apr 12, 2018 Date of Influenza Vaccine: Apr 12, 2018 Seasonal Allergies Seasonal Allergies: No Past Medical History Surgeries: Orthopedic Respiratory: Sleep Apnea Currently Using CPAP: No (HAS ONE DOESNT USE) Currently Using BIPAP: No ("I'M SUPPOSE TO") Cardiac: Hypertension Sexually Transmitted Disease: No HIV/AIDS: No Genitourinary: Prostate Problems Musculoskeletal: Degenerate Disk Disease, Arthritis, Chronic Back Pain Endocrine: Diabetes, Non-Insulin dep Are Your Blood Sugars Over 250: No Loss of Vision: Bilateral Hearing Impairment: Denies Cancer: Skin History of Blood Disorders: No Adverse Reaction to Blood Thomas: No (HAS HAD BLOOD WITH NO REACTION) Family History Arthritis 19 FATHER 19 MOTHER G8 BROTHER G8 SISTER Colon cancer 19 MOTHER Dementia 19 FATHER Diabetes mellitus 19 FATHER Respiratory disorder 19 FATHER Review of Systems Constitutional: see HPI, weakness EENTM: no symptoms reported Respiratory: no symptoms reported Cardiovascular: no symptoms reported Gastrointestinal: no symptoms reported Genitourinary: no symptoms reported Musculoskeletal: back pain Skin: no symptoms reported Psychiatric/Neurological: No Symptoms Reported All Other Systems Reviewed Negative Unless Noted: Yes Physical Exam Exam Vital Signs Vital Signs Date Time Temp Pulse Resp B/P (MAP) Pulse Ox O2 Delivery O2 Flow Rate FiO2 09/09/18 06:10 97.5 104 18 101/63 (76) 97 Room Air Capillary Refill : General Appearance: No Apparent Distress, WD/WN, Chronically ill, Obese HEENT: PERRL/EOMI, Normal ENT Inspection, Pharynx Normal, Moist Mucous Membranes Neck: Full Range of Motion, Normal Inspection, Non Tender, Supple Respiratory: Chest Non Tender, Lungs Clear, Normal Breath Sounds, No Accessory Muscle Use, No Respiratory Distress, Decreased Breath Sounds Cardiovascular: Regular Rate, Rhythm, No Edema, No Gallop, No JVD, No Murmur Gastrointestinal: Normal Bowel Sounds, No Organomegaly, No Pulsatile Mass, Non Tender, Soft Back: Decreased Range of Motion, Muscle Spasm, Vertebral Tenderness Extremity: Normal Capillary Refill, Normal Inspection, Normal Range of Motion, Non Tender, No Calf Tenderness, No Pedal Edema Neurologic/Psychiatric: Alert, Oriented x3, No Motor/Sensory Deficits, Depressed Affect Skin: Normal Color, Warm/Dry Lymphatic: No Adenopathy Results Results/Procedures Labs Laboratory Tests 09/09/18 06:00 Patient resulted labs reviewed. Assessment/Plan Assessment and Plan Assess & Plan/Chief Complaint Assessment: Status post extensive spine surgery with hardware placement with subsequent severe debility requiring inpatient rehabilitation Hypertension Status post acute renal failure Diabetes mellitus Obstructive sleep apnea noncompliant with sleep apnea treatment Obesity Plan: Pain control Intensive therapies Monitor bowel and bladder function (1) Fixation hardware in spine (2) Diabetes mellitus (3) Acute renal failure (4) Leukocytosis (5) Obesity (6) KIMANI (obstructive sleep apnea) (7) History of BPH (8) Nonunion of spinal fusion Post Admission Physician Asses Date seen by provider: Sep 09, 2018 Time seen by provider: 08:00 Admisison Dx: (1) Fixation hardware in spine Status: Acute The preadmission screen agrees with the post admission assessment that the patient is a good candidate for inpatient rehabilitation. The patient will have a comprehensive program of inpatient rehabilitation with a goal of maximizing level of functional independence prior to discharge home with family. The patient will have PT/OT ninety minutes per day, each discipline, five days a week for gait, strengthening, conditioning, balance, ADLs, any patient/family/caregiver training as necessary. Speech therapy to do cognitive assessment and treat as indicated. Rehabilitation nursing to assist with bowel, bladder, skin, wound care, medication administration, pain management. Sustainable Communities Designer to assist with discharge planning, community reentry. SCD's for DVT prophylaxis. He appears to be well motivated to participate in three hours of therapy a day. He should be able to tolerate three hours of therapy a day from a medical standpoint. He should benefit from the three hours of therapy a day. He has a reasonable discharge plan, reasonable discharge rehabilitation goals and a supportive family. He has various comorbidities that need to be closely monitored with medications and treatments adjusted on a daily basis as needed. These include: Barriers to discharge for this patient who had been independent prior to this are for him to be modified independent to supervision for ADLs and mobility skills prior to discharge home with [family], so as to lessen the burden of the caregivers. Risks for this patient include: 1. Fall 2. Fracture 3. DVT 4. Pulmonary embolism 5. Wound infection 6. Skin breakdown 7. Contractures 8. Poorly controlled pain 9. Urinary retention 10. UTI 11. Respiratory infection 12. Aspiration Estimated Length of Stay: 5 days Prognosis: Rehab prognosis appears good for goal of discharge home with family modified independent to supervision for ADLs and mobility skills. General: Alert, Oriented X3, Cooperative, No Acute Distress HEENT: Atraumatic, PERRLA Neck: Supple, No JVD, No Thyromegaly, +2 Carotid Pulse No Bruit, No LAD Lungs: Clear to Auscultation, Normal Air Movement Heart: Regular Rate, Normal S1, Normal S2, No Murmurs Abdomen: Normal Bowel Sounds, Soft, No Tenderness, No Hepatosplenomegaly, No Masses Extremities: No Clubbing, No Cyanosis, No Edema, Normal Pulses, No Tenderness/ Swelling Skin: No Rashes, No Breakdown, No Significant Lesion Neuro: Sensation Intact, Cranial Nerves 3-12 NL, Reflexes 2+, Other (limited ROM spine) Psych/Mental Status: Mental Status NL, Other (flat affect) [place] SOLIS DO Sep 09, 2018 07:56
[2018-09-09] MEDS: DOCUSATE SODIUM 100 MG (COLACE) CAP PO SCH ×2 (08:36→21:23)
[2018-09-09] MEDS: CYCLOBENZAPRINE 10 MG (FLEXERIL) TAB PO SCH ×3 (08:39→20:48)
[2018-09-09] MEDS: meTOproloL SUCCINATE 50 MG (TOPROL XL) TAB PO SCH (08:39)
[2018-09-09] MEDS: GABAPENTIN 600 MG (NEURONTIN) TAB PO SCH ×3 (08:39→20:48)
--- NOTE | 2018-09-09 08:56 | ST Cognitive Linguistic Eval ---
Speech Evaluation-General Medical Diagnosis Ealevxa-xswyk-xxwdvy [place] Date: Sep 06, 2018 Therapy Diagnosis Therapy Diagnosis: Cognitive-Communication Precautions Precautions/Isolations: Fall Prevention Medical History Pertinent Medical History: Arthritis, DM, HTN, OA Reviewed History: Yes Social History Current Living Status: Spouse Speech PLF-Current Status Prior Level of Function Patient lived at home with his and was independent for most of his daily needs. Subjective Patient was pleasant and cooperative during the evaluation process. Language Eval: Auditory Comprehends Simple Yes/No Ques: Functional Indent/Objects Multiple Hernandez: Functional Ident/Pics in Multiple Hernandez: Functional Follows 1-Step Commands: Functional Follows Complex Directions: Functional Follows General Conversations: Functional Language Eval: Verbal Language Completes Spontaneous Greeting: Functional Produces Auto, Serial Info: Functional Imitates Simple Words/Phrases: Functional Word Finding: Functional Requests Basic Needs: Functional States Basic Personal Info: Functional Expresses Complex Ideas: Functional Objective Cognitive Domain Attention: WNL Memory: WNL Problem Solving: Functional Executive Functions: WNL Visuospatial Skills: WNL Clock Drawing Severity Rating: WNL Objective Formal/Standardized Tests Anthony Cognitive Assessment (MOCA) Results Visuospatial/Executive: 5/5, Namin/3, Attention: 6/6, Language: 3/3, Abstraction: 2/2, Delayed Recall: 5/5, Orientation: 6/6 Oral Motor/Speech Production Within Functional Limits Impression Patient is a pleasant 63 year old man who was admitted to the ARU for therapy following back surgery. The patient was given the MOCA with 100% results for all cognitive areas tested. The patient is not recommended for skilled ST services at this time. Communication/Social Cognition Comprehension: 7 Expression: 7 Social Interaction: 7 Problem Solvin Memory: 7 Speech Patient Assess Expression of Ideas/Wants: Expression (4) Understanding Verbal Content: Understands (4) Brief Interview-Mental Status: Yes Repetition of Three Words: Three (3) Temporal Orientation: Year: Correct (3) Temporal Orientation: Month: Accurate within 5 days(2) Temporal Orientation: Day: Correct (1) Recall : Wear to say "Sock": Yes, no cue required (2) Recall : Color: Yes, no cue required (2) Recall : Bed: Yes, no cue required (2) Memory/Recall Ability: Current season, Location of own room, Staff names and faces, That he or she is in a hsp/hsp unit Speech-Plan Patient/Family Goals Patient/Family Goals: The patient plans to return home with his post rehab. Treatment Plan Speech Therapy Treatment Plan: Discontinue ST The patient does not exhibit any cognitive deficits which require skilled therapy for remediation. Treatment Duration: Sep 09, 2018 Frequency: 1 time per week Estimated Hrs Per Day: .25 hour per day Rehab Potential: Good Barriers to Learning: None identified Pt/Family Agrees to Plan: Yes Safety Risks/Education Teaching Recipient: Patient Teaching Methods: Discussion Response to Teaching: Verbalize Understanding Education Topics Provided: Safety within his room. Time Speech Therapy Time In: 08:30 Speech Therapy Time Out: 08:45 Total Billed Time: 15 Billed Treatment Time 1, SPSNDCOMP TYLER Dick Sep 09, 2018 08:56
--- NOTE | 2018-09-09 10:01 | Physical Therapy Daily Note ---
PT Daily Note-Current Subjective Patient in recliner pre tx, agrees to PT, has 3/10 pain in his back. Patient states he has diarrhea and might need to use the restroom during treatment. Appearance Patient in bed post tx with nurse call, phone, tray, all needs met. Mental Status Patient Orientation: Person, Place, Situation back brace Transfers Therapy Code Descriptions/Definitions Functional Darke Measure: 0=Not Assessed/NA 4=Minimal Assistance 1=Total Assistance 5=Supervision or Setup 2=Maximal Assistance 6=Modified Darke 3=Moderate Assistance 7=Complete Darke Therapy Quality Codes: 6 Independent with activity with or without an assistive device 5 Patient requires set up or clean up by helper. Patient completes activity by themselves 4 Supervision or touching assist (CGA). [place] provide cues , steadying assist 3 The helper provides less than half the effort to complete the activity 2 The helper provides more than half the effort to complete the activity 1 Dependent. The helper does all the effort to complete an activity 7 Patient refused to complete or attempt activity 9 The patient did not perform the activity before the current illness or injury 88 Not attempted due to Medical conditions or safety concerns Transfers (B, C, W/C) (FIM): 5 Scootin Rollin Supine to/from Sit: 5 Sit to/from Stand: 5 Bed to/from Chair: 5 occasional cues for hand placement Weight Bearing Right Lower Extremity: Right Weight Bearing/Tolerated Left Lower Extremity: Left Weight Bearing/Tolerated Gait Training Gait (FIM): 5 Distance: 150'x4 Gait Level of Assist: 5 Gait Persons Needed: 1 Gait Assistive Device: FWW Antalgic, slow, but steady, no LOB. Exercises Standing: Hip Abduction, Hamstring curls, Heel/toe raises, Mini squats Standing Reps: 15 LAQ alternating for 5 min Treatments bed mobility and transfers, ambulation, functional strengthening, patient was also toileted twice for a BM, needs assist with wiping Assessment Current Status: Fair Progress improving transfers and bed mobility PT Short Term Goals Short Term Goals Time Frame: Sep 15, 2018 Transfers (B,C,W/C) (FIM): 4 Gait (FIM): 4 Distance (FIM): 3=150 ft Gait Distance Comment: 150' Gait Level of Assist: 4 Gait Assistive Device: FWW PT Alf Goals Luster Applicator Goals PT Alf Goals Time Frame: Sep 29, 2018 Transfers (B,C,W/C) (FIM): 5 Sit to Lying (QC): 4 Lying-Sitting on Side/Bed(QC): 4 Sit to Stand (QC): 4 Rollin Roll Left to Right (QC): 4 Chair/Jnt-td-Ltwls Xfer(QC): 4 Car Transfer (QC): 4 Does the Patient Walk: Yes Gait (FIM): 5 Gait distance (FIM): 3=150 ft Distance: 300' Walk 10 feet (QC): 4 Walk 10ft-Uneven Surface(QC): 4 Walk 50ft with 2 Turns (QC): 4 Walk 150 ft (QC): 4 Gait Level of Assist: 5 Gait Assistive Device: FWW Stairs (FIM): 2 # of Steps: 4 1 Step (curb) (QC): 4 4 Steps (QC): 4 Stairs Level Of Assist: 5 PT Plan Problem List Problem List: Activity Tolerance, Functional Strength, Safety, Balance, Gait, Transfer, Bed Mobility, ROM Treatment/Plan Treatment Plan: Continue Plan of Care Treatment Plan: Bed Mobility, Education, Functional Activity Ariel, Functional Strength, Group Therapy, Gait, Safety, Therapeutic Exercise, Transfers Treatment Duration: Sep 29, 2018 Frequency: At least 5 of 7 days/Wk (IRF) Estimated Hrs Per Day: 1.5 hours per day Patient and/or Family Agrees t: Yes Safety Risks/Education Patient Education: Gait Training, Transfer Techniques, Correct Positioning, Safety Issues Teaching Recipient: Patient Teaching Methods: Demonstration, Discussion Response to Teaching: Reinforcement Needed Time/GCodes Time In: 0900 Time Out: 1000 Total Billed Treatment Time: 60 Total Billed Treatment 1 visit EX 30' GT 30' CHAPO CHAWLA PT Sep 09, 2018 10:01
--- NOTE | 2018-09-09 11:46 | Occupational Ther Daily Note ---
OT Current Status-Daily Note Subjective Pt in bed resting, alert, oriented, cooperative & agree for therapy. Pain Numeric Pain Scale: 3 Location Body Site: Back Pain Description: Pressure, Pricking Mental Status/Objective Patient Orientation: Person, Place, Time Therapy Code Descriptions/Definitions Functional [place] Measure: 0=Not Assessed/NA 4=Minimal Assistance 1=Total Assistance 5=Supervision or Setup 2=Maximal Assistance 6=Modified [place] 3=Moderate Assistance 7=Complete [place] Attachments: Saline Lock ADL-Treatment Pt participated in sponge bath , bed mobility, func transfer training, training on Assisted devices to use in dressing, shower, & donning socks. Provoded long handled Panelbeater, long handled bath sponge, & socks Aid. Pt needs min A in supine to sit at EOB, Min-SBA in sit to stand with FWW, SBA in toilet hygiene , Pt wipes UB, arms, face, head & both above knee legs with set up.using warm Wipes. Completed 20 reps x 2 sets x 2 lb wt, 30 reps with BUE with red theraband & 30 reps using hand gripper with both hands. Pt ambulate with FWW under supervision of therapist 150 feet . Pt fatigue soon. Therapy Code Descriptions/Definitions Functional [place] Measure: 0=Not Assessed/NA 4=Minimal Assistance 1=Total Assistance 5=Supervision or Setup 2=Maximal Assistance 6=Modified [place] 3=Moderate Assistance 7=Complete [place] Therapy Quality Codes: 6 Independent with activity with or without an assistive device 5 Patient requires set up or clean up by helper. Patient completes activity by themselves 4 Supervision or touching assist (CGA). [place] provide cues , steadying assist 3 The helper provides less than half the effort to complete the activity 2 The helper provides more than half the effort to complete the activity 1 Dependent. The helper does all the effort to complete an activity 7 Patient refused to complete or attempt activity 9 The patient did not perform the activity before the current illness or injury 88 Not attempted due to Medical conditions or safety concerns Eating (FIM): 7 Eating (QC): 6 Grooming (FIM): 6 Oral Hygiene (QC): 5 Bathing (FIM): 5 (Bath -spongue) Bathing Location: L Arm, R Arm, L Upper Leg, R Upper Leg, Chest, Abdomen Shower/Bathe Self (QC): 0 Upper Body (FIM): 5 Upper Body Dressing (QC): 5 Lower Body Dressing (FIM): 3 Lower Body Dressing (QC): 3 On/Off Footwear (QC): 0 Toileting (FIM): 5 Toileting Hygiene (QC): 5 Transfers (B, C, W/C) (FIM): 5 Toilet/Commode Transfer (FIM): 5 Toilet Transfer (QC): 5 Tub Transfer(FIM): 0 Shower Transfer(FIM): 0 Education OT Patient Education: Correct positioning, Energy conservation, Safety issues Teaching Recipient: Patient Teaching Methods: Demonstration Response to Teaching: Verbalize Understanding OT Short Term Goals Short Term Goals Time Frame: Sep 22, 2018 Eating(FIM): 7 Grooming(FIM): 7 Bathing(FIM): 5 Bathing Location: L Arm, R Arm, L Upper Leg, R Upper Leg, L Lower Leg ( including foot), R Lower Leg (including foot), Chest, Abdomen, Buttocks, Perineal Area Upper Body Dressing(FIM): 6 Lower Body Dressing(FIM): 5 Toileting(FIM): 7 Transfers (B,C,W/C) (FIM): 4 Toilet/Commode Transfer(FIM): 7 Tub Transfer(FIM): 0 Shower Transfer(FIM): 7 Additional Short Term Goals: 1-Demonstrate ADL Tasks, 2-Verbalize Understanding , 3-ImproveStrength/Ariel 1=Demonstrate adherence to instructed precautions during ADL tasks. 2=Patient will verbalize/demonstrate understanding of assistive devices/ modifications for ADL. 3=Patient will improve strength/tolerance for activity to enable patient to perform ADL's. OT Longterm Goals Longterm Goals Time Frame: Oct 06, 2018 Eating (FIM): 7 Eating (QC): 6 Groomin Oral Hygiene (QC): 6 Bathing(FIM): 7 Bathing Location: L Arm, R Arm, L Upper Leg, R Upper Leg, L Lower Leg ( including foot), R Lower Leg (including foot), Chest, Abdomen, Buttocks, Perineal Area Shower/Bathe Self (QC): 6 Upper Body Dressing(FIM): 7 Upper Body Dressing (QC): 6 Lower Body Dressing(FIM): 7 Lower Body Dressing (QC): 6 On/Off Footwear (QC): 6 Toileting(FIM): 7 Toileting Hygiene (QC): 6 Transfers (B,C,W/C) (FIM): 7 Toilet/Commode Transfer(FIM): 7 Toilet/Commode Transfer (QC): 6 Tub Transfer(FIM): 7 Shower Transfer(FIM): 7 Additional Goals: 1-Demonstrate ADL Tasks, 2-Verbalize Understanding, 3- ImproveStrength/Ariel 1=Demonstrate adherence to instructed precautions during ADL tasks. 2=Patient will verbalize/demonstrate understanding of assistive devices/ modifications for ADL. 3=Patient will improve strength/tolerance for activity to enable patient to perform ADL's. OT Education/Plan Problem List/Assessment Assessment: Decreased Activ Tolerance, Decreased Safety Aware, Decreased UE Strength, Dependent Transfers, Impaired Bed Mobility, Impaired Funct Balance, Impaired Self-Care Skills Discharge Recommendations Plan/Recommendations: Continue POC Therapy D/C Recommendations: Home w/ Family Support Equpiment Recommendations-D/C: Extended Bath Bench, Extended Shower Sprayer, Panelbeater, Hip Kit Patient/Family Goals To return home with Independently with AD. Treatment Plan/Plan of Care Treatment,Training & Education: Yes Patient would benefit from OT for education, treatment and training to promote independence in ADL's, mobility, safety and/or upper extremity function for ADL' s. Plan of Care: ADL Retraining, Caregiver Training, Functional Mobility, Group Exercise/Act as Ind, UE Funct Exercise/Act, UE Neuromus Re-Ed/Coord Treatment Duration: Oct 06, 2018 Frequency: 5 times per week Estimated Hrs Per Day: 1.5 hours per day Agreement: Yes Rehab Potential: Good Time/GCodes Start Time: 10:00 Stop Time: 11:30 Total Time Billed (hr/min): 90 Billed Treatment Time 1, ADL 60 min, FA 15 min, Ex 15 min. Total 90 minutes. DYLLAN GANT OT Sep 09, 2018 11:46
--- NOTE | 2018-09-09 14:06 | NUR ---
CLOUD SOFTWARE ENGINEER met with patient to complete initial assessment. Patient was alert and oriented and agreeable to assessment. Patient admitted to ARU from internally following lumbar, thoracic and pelvic fusion by Dr. Garcia. Patient resides in a one level home in [place], [place] with spouse, Sheryl. The home is one level with 4 steps at the entrance and railing. Patient reports independence with ambulation and ADLs prior to surgery; however, patient reports increased pain since May 2018. Patient was not recently using DME at home however does possess a walker, quarryman, sock aid and shoehorn. PCP identified as Dr. Jase Diaz. Patient identifies spouse, Sheryl as primary contact at [phone] and brother Jaime has secondary contact at [phone]. Patient reports 2 brothers reside within a mile as patient. Patient's , Sheryl continues to work time clock mechanic; however, she is able to physically assist patient if needed. CLOUD SOFTWARE ENGINEER verified insurance as Medicare and [employer] with prescription coverage and preferred pharmacy is [facility]. Patient began receiving disability approximately 18 years ago due to chronic back pain. CLOUD SOFTWARE ENGINEER reviewed typical rehabilitation length of stay, patient reports no concerns at this time. CLOUD SOFTWARE ENGINEER will continue to follow for additional discharge needs.
--- NOTE | 2018-09-09 14:49 | Physical Therapy Daily Note ---
PT Daily Note-Current Subjective Agrees to PT. Reports he is worn out this afternoon. Mental Status Patient Orientation: Person, Place, Time, Situation Transfers Therapy Code Descriptions/Definitions Functional [place] Measure: 0=Not Assessed/NA 4=Minimal Assistance 1=Total Assistance 5=Supervision or Setup 2=Maximal Assistance 6=Modified [place] 3=Moderate Assistance 7=Complete [place] Therapy Quality Codes: 6 Independent with activity with or without an assistive device 5 Patient requires set up or clean up by helper. Patient completes activity by themselves 4 Supervision or touching assist (CGA). [place] provide cues , steadying assist 3 The helper provides less than half the effort to complete the activity 2 The helper provides more than half the effort to complete the activity 1 Dependent. The helper does all the effort to complete an activity 7 Patient refused to complete or attempt activity 9 The patient did not perform the activity before the current illness or injury 88 Not attempted due to Medical conditions or safety concerns Sit to Stand (QC): 4 (takes extra time; heavy use of his UE. ) Toilet transfer with use of grab bar with CGA. Weight Bearing Right Lower Extremity: Right Weight Bearing/Tolerated Left Lower Extremity: Left Weight Bearing/Tolerated Gait Training Does the Patient Walk?: Yes Gait (FIM): 4 Distance (FIM): 3=150 ft Distance: 200 ft x 2; 125 ft x 1 Gait Assistive Device: FWW CGA with gait for safety. Slow. Relies on use of arms with FWW. Assessment Current Status: Good Progress Tired this afternoon. Cooperativ.e PT Short Term Goals Short Term Goals Time Frame: Sep 15, 2018 Transfers (B,C,W/C) (FIM): 4 Gait (FIM): 4 Distance (FIM): 3=150 ft Gait Distance Comment: 150' Gait Level of Assist: 4 Gait Assistive Device: FWW PT Alf Goals Alf Goals PT Alf Goals Time Frame: Sep 29, 2018 Transfers (B,C,W/C) (FIM): 5 Sit to Lying (QC): 4 Lying-Sitting on Side/Bed(QC): 4 Sit to Stand (QC): 4 Rollin Roll Left to Right (QC): 4 Chair/Zjy-[employer] Xfer(QC): 4 Car Transfer (QC): 4 Does the Patient Walk: Yes Gait (FIM): 5 Gait distance (FIM): 3=150 ft Distance: 300' Walk 10 feet (QC): 4 Walk 10ft-Uneven Surface(QC): 4 Walk 50ft with 2 Turns (QC): 4 Walk 150 ft (QC): 4 Gait Level of Assist: 5 Gait Assistive Device: FWW Stairs (FIM): 2 # of Steps: 4 1 Step (curb) (QC): 4 4 Steps (QC): 4 Stairs Level Of Assist: 5 PT Plan Problem List Problem List: Activity Tolerance, Functional Strength, Safety Treatment/Plan Treatment Plan: Continue Plan of Care Treatment Plan: Bed Mobility, Education, Functional Activity Ariel, Functional Strength, Group Therapy, Gait, Safety, Therapeutic Exercise, Transfers Treatment Duration: Sep 29, 2018 Frequency: At least 5 of 7 days/Wk (IRF) Estimated Hrs Per Day: 1.5 hours per day Patient and/or Family Agrees t: Yes Safety Risks/Education Patient Education: Safety Issues Teaching Recipient: Patient Teaching Methods: Discussion Response to Teaching: Reinforcement Needed Time/GCodes Time In: 1330 Time Out: 1403 Total Billed Treatment Time: 33 Total Billed Treatment visit GT 33 BREE RANDHAWA PT Sep 09, 2018 14:49
[2018-09-09] MEDS: metFORMIN XR 500 MG (GLUCOPHAGE XR) TAB PO SCH ×2 (16:52→18:29)
[2018-09-09 18:03] VITALS: BP 107/70
[2018-09-09] MEDS: ACETAMINOPHEN 325 MG TABLET PO PRN (18:29)
[2018-09-09] MEDS: FINASTERIDE (PROSCAR) 5 MG TAB PO SCH (18:29)
[2018-09-09] MEDS: TAMSULOSIN 0.4 MG (FLOMAX) CAP PO SCH (18:29)
[2018-09-10 05:43] VITALS: BP 138/78
[2018-09-10] MEDS: inSUlin ASPART (NovoLOG) 1 UNIT/0.01 ML (CHARGE PER UNIT) SC SCH ×4 (05:43→20:37)
[2018-09-10] MEDS: metFORMIN XR 500 MG (GLUCOPHAGE XR) TAB PO SCH ×2 (06:17→18:20)
[2018-09-10] MEDS: MULTIVIT W/MINERALS TAB (THERAGRAN M) PO SCH (06:17)
[2018-09-10] MEDS: meTOproloL SUCCINATE 50 MG (TOPROL XL) TAB PO SCH (08:14)
[2018-09-10] MEDS: ACETAMINOPHEN 325 MG TABLET PO PRN (08:14)
[2018-09-10] MEDS: CYCLOBENZAPRINE 10 MG (FLEXERIL) TAB PO SCH ×3 (08:14→20:29)
[2018-09-10] MEDS: GABAPENTIN 600 MG (NEURONTIN) TAB PO SCH ×3 (08:18→20:29)
[2018-09-10] MEDS: DOCUSATE SODIUM 100 MG (COLACE) CAP PO SCH (08:19)
--- NOTE | 2018-09-10 09:08 | PM&R Progress Note ---
Subjective HPI/CC On Admission Date Seen by Provider: Sep 10, 2018 Time Seen by Provider: 09:15 CC: Severe debility following an extensive C3-6 Laminectomy and C3-T2 PSF with instrumentation uncomplicated by Dr Garcia POD # 3 HPI: This is a 63-year-old white male who presented to inpatient rehabilitation due to severe debility following extensive spine surgery with hardware placement. He required ICU monitoring due to the profound impact the procedure had placing him at risk for acute blood loss, respiratory failure and arrhythmia. He did well during ICU stay did have acute renal failure creatinine 1.6 but that resolved with aggressive IV fluids. He is noncompliant with obstructive sleep apnea treatment with CPAP and he was maintain on oxygen during ICU stay. Pain was controlled and he minimized the amount of pain medication he took which is been very helpful in a more rapid recovery but still needed aggressive physical therapy and management in the inpatient rehabilitation unit. Currently patient is doing well pain is controlled and I have reordered metformin home medication due to resolution of acute renal failure. Subjective/Events-last exam Patient doing well by only taking Tylenol which is impressive given the severity of the spine disease and the hardware that was placed Still asking about a culture that was obtained during surgery so we'll recheck to Dr. Garcia Bowel movements are normal Checked meds and labs Overall feels like he is making progress Review of Systems Musculoskeletal: back pain Objective Exam Vital Signs Vital Signs Date Time Temp Pulse Resp B/P (MAP) Pulse Ox O2 Delivery O2 Flow Rate FiO2 09/10/18 09:00 97 Room Air 09/10/18 05:43 98.2 102 20 138/78 (98) Capillary Refill : General Appearance: No Apparent Distress, WD/WN, Chronically ill, Obese HEENT: PERRL/EOMI, Normal ENT Inspection, Pharynx Normal, Moist Mucous Membranes Neck: Full Range of Motion, Normal Inspection, Non Tender, Supple Respiratory: Chest Non Tender, Lungs Clear, Normal Breath Sounds, No Accessory Muscle Use, No Respiratory Distress, Decreased Breath Sounds Cardiovascular: Regular Rate, Rhythm, No Edema, No Gallop, No JVD, No Murmur Gastrointestinal: Normal Bowel Sounds, No Organomegaly, No Pulsatile Mass, Non Tender, Soft Back: Decreased Range of Motion, Muscle Spasm, Vertebral Tenderness Extremity: Normal Capillary Refill, Normal Inspection, Normal Range of Motion, Non Tender, No Calf Tenderness, No Pedal Edema Neurologic/Psychiatric: Alert, Oriented x3, No Motor/Sensory Deficits, Depressed Affect Skin: Normal Color, Warm/Dry Lymphatic: No Adenopathy Results/Procedures Lab Patient resulted labs reviewed. Assessment/Plan Assessment and Plan Assess & Plan/Chief Complaint Assessment: Status post extensive spine surgery with hardware placement with subsequent severe debility requiring inpatient rehabilitation Hypertension Status post acute renal failure Diabetes mellitus Obstructive sleep apnea noncompliant with sleep apnea treatment Obesity Plan: Pain control Intensive therapies Monitor bowel and bladder function (1) Fixation hardware in spine (2) History of BPH (3) KIMANI (obstructive sleep apnea) (4) Obesity (5) Leukocytosis (6) Acute renal failure (7) Diabetes mellitus Clinical Quality Measures DVT/VTE Risk/Contraindication: Risk Factor Score Per Nursin RFS Level Per Nursing on Admit: 4+=Very High MODESTO SOLIS DO Sep 10, 2018 09:08
--- NOTE | 2018-09-10 09:10 | Individualized Plan of Care ---
Individualized Plan of Care Rehab Nursing IPOC Order Admission Date Sep 08, 2018 at 13:34 Current Orders Orders Admission Order(Inpt,Obs,Sdc) (09/08/18 13:17) Vital Signs: Routine (Order) 08,16,00 (09/08/18 13:17) Offset Pressman-Inpt Rehab Con (09/08/18 13:17) Rehab Nursing Orders-Ipoc (09/08/18 13:17) Physical Therapy Rehab Orders (09/08/18 13:17) Occupational Therapy Rehab Ord (09/08/18 13:17) Intake & Output 06,14,22 (09/08/18 13:17) Precautions (Aru) (09/08/18 13:17) Weekly Weight (Lbs) WEEK (09/08/18 13:17) Rehab-Intensity Of Therapy (09/08/18 13:17) Code/Resuscitation (09/08/18 13:17) Initiate Admission Nursing Pro .admission (09/08/18 13:17) Hydrocodone/Apap 5/325 Tablet (Lortab 5 (09/08/18 13:45) Ondansetron Injection (Zofran Injectio (09/08/18 13:45) Alprazolam Tablet (Xanax Tablet) (09/08/18 13:45) Calcium Carbonate Chew Tablet (Antacid C (09/08/18 13:45) Diphenhydramine Tablet (Benadryl Tablet) (09/08/18 13:45) Melatonin Tablet (Melatonin Tablet) (09/08/18 13:45) Cbc With Automated Diff (09/09/18 06:00) Comprehensive Metabolic Panel (09/09/18 06:00) Catheter(Urinary) Discontinue (09/08/18 13:39) Morphine Injection (Morphine Injection (09/08/18 13:45) Patient Visit (09/08/18 ) Pt Eval Moderate Complexity (09/08/18 ) Functional Activities, Ea 15 (09/08/18 ) Patient Visit (09/08/18 ) Exercise Therap, Ea 15 Min (09/08/18 ) Functional Activities, Ea 15 (09/08/18 ) Gait Training, Ea 15 Min (09/08/18 ) Nursing Communication (Order) (09/08/18 15:44) Accucheck Achs ACHS (09/08/18 15:42) Incentive Spirometry (Nursing) Q2H (09/08/18 15:42) Oxygen-Administer 07,19 (09/08/18 15:42) Sequential Compression Device 08,20 (09/08/18 15:42) Cho 60g/M 1snack (16-2000 Prince) (09/08/18 Dinner) Docusate Sodium Capsule (Colace Capsule) (09/08/18 21:00) Cyclobenzaprine Tablet (Flexeril Tablet) (09/08/18 21:00) Diazepam Tablet (Valium Tablet) (09/08/18 15:45) Bisacodyl Tablet (Dulcolax Tablet) (09/08/18 15:45) Finasteride Tablet (Proscar Tablet) (09/08/18 18:00) Gabapentin Capsule/Tablet (Neurontin Cap (09/09/18 08:00) Hydrocodone/Apap 10/325 Tablet (Lortab 1 (09/08/18 15:45) Therapeutic Multivitamin Tab (Vitamins, (09/09/18 07:00) Insulin Aspart (Novolog) (Novolog (Charg (09/08/18 16:00) Tamsulosin Capsule (Flomax Capsule) (09/08/18 18:00) Acetaminophen Tablet/Caplet (Tylenol T (09/08/18 15:45) Ondansetron Injection (Zofran Injectio (09/08/18 15:45) Metoprolol Succinate (Xl) Tab (Toprol Xl (09/09/18 09:00) Incentive Spirometry Initial (09/08/18 15:42) Incentive Spirometry (Nursing) Q2H (09/08/18 15:42) Gabapentin Capsule/Tablet (Neurontin Cap (09/08/18 15:48) Ambulate 08,12,20 (09/08/18 16:30) Sequential Compression Device 08,20 (09/08/18 16:30) Dvt/Vte Risk - Notifiy Physici 08 (09/08/18 16:30) Metformin Xr Tablet (Glucophage Xr Table (09/09/18 09:00) Patient Visit (09/09/18 ) Speech Sound Lang Comp (09/09/18 ) Patient Visit (09/09/18 ) Gait Training, Ea 15 Min (09/09/18 ) Exercise Therap, Ea 15 Min (09/09/18 ) Patient Visit (09/09/18 ) Gait Training, Ea 15 Min (09/09/18 ) Rehab Nursing Orders: Ongoing Assess. of Function Status, Bladder Management, Bowel Management, Disease Management & Educaiton, Fluid/Electrolyte/Nutrition Mgmt, Infection Prevention, Management of Skin Intergrity, Pain Management, Safety Management, Wound Management Intensity of Therapy to be met Patient to be seen: Min.3h per day/5 of 7d PT IPOC Problem List: Activity Tolerance, Functional Strength, Safety Treatment Plan: Continue Plan of Care Bed Mobility, Education, Functional Activity Ariel, Functional Strength, Group Therapy, Gait, Safety, Therapeutic Exercise, Transfers Treatment Duration: Sep 29, 2018 Frequency: At least 5 of 7 days/Wk (IRF) Estimated Hrs Per Day: 1.5 hours per day OT IPOC Problems: Decreased Activ Tolerance, Decreased Safety Aware, Decreased UE Strength, Dependent Transfers, Impaired Bed Mobility, Impaired Funct Balance, Impaired Self-Care Skills OT Treatment, Training and Edu: Yes Plan of Care: ADL Retraining, Caregiver Training, Functional Mobility, Group Exercise/Act as Ind, UE Funct Exercise/Act, UE Neuromus Re-Ed/Coord Treatment Duration: Oct 06, 2018 Frequency: 5 times per week Estimated Hrs Per Day: 1.[address] IPOC Speech Therapy Treatment Plan: Discontinue ST Treatment Duration: Sep 09, 2018 Frequency: 1 time per week Estimated Hrs Per Day: .25 hour per day Offset Pressman/Case Mgmt Offset Pressman/Case Managemen: Discharge Planning Dietitian/Headrig Sawyer Dietitian/Headrig Sawyer to monitor nutritional status and make changes and/or recommendations as needed and work with speech pathology on dietary upgrades as the occur. Physician IPOC Medical Issues being managed closely and that require the 24 hour availability of a physician: Extensive spine surgery with hardware placement monitoring for pain and complications Monitor bowel and bladder function Maintain supportive care for obstructive sleep apnea noncompliant with sleep apnea treatment Medical Issues: Bowel/Bladder Function, DVT Prophylaxis, Falls Precautions, Fluid/Electrolyte/Nutrition Balance, Infection Protection, Pain Management, Wound Care Brief Synthesis of Preadmission Screen, Post-Admission Evaluation, and Therapy Evaluations: PT will focus on ROM and strengthening OT will focus on home management of ADL's Medical Prognosis: Good Anticipated Length of Stay: 7 days MODESTO SOLIS DO Sep 10, 2018 09:10
--- NOTE | 2018-09-10 10:05 | Physical Therapy Daily Note ---
PT Daily Note-Current Subjective Pt. agrees to Rx. States he has pain at 3/10 in upper left thigh but back pain is not an issue. States he has had about 6 BMs since 6 am and is worried he will have one during Rx. Pt. agrees to wear a brief for Rx Pain Numeric Pain Scale: 3 Location: Left Location Body Site: Thigh Pain Description: Pressure Mental Status Patient Orientation: Normal For Age Attachments: Other-See Comments (back brace) Transfers Therapy Code Descriptions/Definitions Functional [place] Measure: 0=Not Assessed/NA 4=Minimal Assistance 1=Total Assistance 5=Supervision or Setup 2=Maximal Assistance 6=Modified [place] 3=Moderate Assistance 7=Complete [place] Therapy Quality Codes: 6 Independent with activity with or without an assistive device 5 Patient requires set up or clean up by helper. Patient completes activity by themselves 4 Supervision or touching assist (CGA). [place] provide cues , steadying assist 3 The helper provides less than half the effort to complete the activity 2 The helper provides more than half the effort to complete the activity 1 Dependent. The helper does all the effort to complete an activity 7 Patient refused to complete or attempt activity 9 The patient did not perform the activity before the current illness or injury 88 Not attempted due to Medical conditions or safety concerns Transfers (B, C, W/C) (FIM): 4 Scootin Rollin Supine to/from Sit: 4 Sit to/from Stand: 5 Weight Bearing Right Lower Extremity: Right Weight Bearing/Tolerated Left Lower Extremity: Left Weight Bearing/Tolerated Gait Training Does the Patient Walk?: Yes Gait (FIM): 5 Distance (FIM): 3=150 ft (160x2) Gait Level of Assist: 5 Gait Persons Needed: 1 Gait Assistive Device: FWW flexed over FWW with moderate weight bearing on FWW Exercises Supine Ex: Ankle pumps, Pelvic tilt, Quad Set, Rolling, Glut sets, Heel Slides , Short Arc Quads, Scooting, Hip abd/add Supine Reps: 20 Seated Therapy Exercises: Ankle pumps, Sit to stand, Long arc quads, Hip flexion, Hip abd/add Seated Reps: 10 NuStep Minutes: 10 NuStep Workload: 3 Treatments toileted managing indep except for donning brief and bottoms...mod Assessment Current Status: Good Progress noted progress daily, less pain, increased funct mob PT Short Term Goals Short Term Goals Time Frame: Sep 15, 2018 Transfers (B,C,W/C) (FIM): 4 Gait (FIM): 4 Distance (FIM): 3=150 ft Gait Distance Comment: 150' Gait Level of Assist: 4 Gait Assistive Device: FWW PT Advertising Executive Goals Skilled Nursing Goals PT Skilled Nursing Goals Time Frame: Sep 29, 2018 Transfers (B,C,W/C) (FIM): 5 Sit to Lying (QC): 4 Lying-Sitting on Side/Bed(QC): 4 Sit to Stand (QC): 4 Rollin Roll Left to Right (QC): 4 Chair/Vmi-dr-Qmdou Xfer(QC): 4 Car Transfer (QC): 4 Does the Patient Walk: Yes Gait (FIM): 5 Gait distance (FIM): 3=150 ft Distance: 300' Walk 10 feet (QC): 4 Walk 10ft-Uneven Surface(QC): 4 Walk 50ft with 2 Turns (QC): 4 Walk 150 ft (QC): 4 Gait Level of Assist: 5 Gait Assistive Device: FWW Stairs (FIM): 2 # of Steps: 4 1 Step (curb) (QC): 4 4 Steps (QC): 4 Stairs Level Of Assist: 5 PT Plan Treatment/Plan Treatment Plan: Continue Plan of Care Treatment Plan: Bed Mobility, Education, Functional Activity Ariel, Functional Strength, Group Therapy, Gait, Safety, Therapeutic Exercise, Transfers Treatment Duration: Sep 29, 2018 Frequency: At least 5 of 7 days/Wk (IRF) Estimated Hrs Per Day: 1.5 hours per day Patient and/or Family Agrees t: Yes Safety Risks/Education Patient Education: Transfer Techniques, Correct Positioning, Safety Issues Teaching Recipient: Patient Teaching Methods: Demonstration, Discussion Response to Teaching: Verbalize Understanding, Return Demonstration, Reinforcement Needed Time/GCodes Time In: 900 Time Out: 1000 Total Billed Treatment Time: 60 Total Billed Treatment 1,EX30m,FA15m,GT15m G Codes Necessary: CHI Merlos RING MAKER Sep 10, 2018 10:05
--- NOTE | 2018-09-10 10:50 | NUR ---
Pastoral care visit.
--- NOTE | 2018-09-10 10:53 | Occupational Ther Daily Note ---
OT Current Status-Daily Note Subjective Pt in bed, alert, oriented , cooperative & agree for therapy. Pain Location: No Pain Reported Mental Status/Objective Patient Orientation: Person, Place, Time, Situation Therapy Code Descriptions/Definitions Functional [place] Measure: 0=Not Assessed/NA 4=Minimal Assistance 1=Total Assistance 5=Supervision or Setup 2=Maximal Assistance 6=Modified [place] 3=Moderate Assistance 7=Complete [place] ADL-Treatment Pt participated in Shower activity, dressing/undressing, toileting, grooming, func transfers, func ambulation & strengthening ex to BUE. Pt needs SBA in shower to wash back. Pt Independent in washing UB & Chest, abdomen Above knee legs face ,head , & perineals . Pt used long handled Bath-sponge to soap & wash LE , Feet , back & Perineal. Pt morbidly obesed. & thus cant reach back & buttocks . Pt used Long handled Toilet -Aid to wipe during toilet hygiene. Pt got up with CGA holding grab bar in shower & dry his body. Pt ambulate back to his room. Pt CGA in [facility] gown & CGA & using fish hatchery man in LB garment.. Completed 20 reps x 2 sets x 2 lb wt, 30 reps with red theraband in all planes of motion & 30 reps with hand gripper with both hands. Therapy Code Descriptions/Definitions Functional [place] Measure: 0=Not Assessed/NA 4=Minimal Assistance 1=Total Assistance 5=Supervision or Setup 2=Maximal Assistance 6=Modified [place] 3=Moderate Assistance 7=Complete [place] Therapy Quality Codes: 6 Independent with activity with or without an assistive device 5 Patient requires set up or clean up by helper. Patient completes activity by themselves 4 Supervision or touching assist (CGA). [place] provide cues , steadying assist 3 The helper provides less than half the effort to complete the activity 2 The helper provides more than half the effort to complete the activity 1 Dependent. The helper does all the effort to complete an activity 7 Patient refused to complete or attempt activity 9 The patient did not perform the activity before the current illness or injury 88 Not attempted due to Medical conditions or safety concerns Eating (FIM): 7 Eating (QC): 6 Grooming (FIM): 7 Oral Hygiene (QC): 6 Bathing (FIM): 4 Bathing Location: L Arm, R Arm, L Upper Leg, R Upper Leg, L Lower Leg ( including foot), R Lower Leg (including foot), Chest, Abdomen, Buttocks, Perineal Area Shower/Bathe Self (QC): 5 Upper Body (FIM): 6 Upper Body Dressing (QC): 5 Lower Body Dressing (FIM): 5 Lower Body Dressing (QC): 5 On/Off Footwear (QC): 5 Toileting (FIM): 6 Toileting Hygiene (QC): 5 Transfers (B, C, W/C) (FIM): 7 Toilet/Commode Transfer (FIM): 7 Toilet Transfer (QC): 6 Tub Transfer(FIM): 0 Shower Transfer(FIM): 7 Education OT Patient Education: Correct positioning, Energy conservation, Safety issues Teaching Recipient: Patient Teaching Methods: Demonstration Response to Teaching: Verbalize Understanding OT Short Term Goals Short Term Goals Time Frame: Sep 22, 2018 Eating(FIM): 7 Grooming(FIM): 7 Bathing(FIM): 5 Bathing Location: L Arm, R Arm, L Upper Leg, R Upper Leg, L Lower Leg ( including foot), R Lower Leg (including foot), Chest, Abdomen, Buttocks, Perineal Area Upper Body Dressing(FIM): 6 Lower Body Dressing(FIM): 5 Toileting(FIM): 7 Transfers (B,C,W/C) (FIM): 4 Toilet/Commode Transfer(FIM): 7 Tub Transfer(FIM): 0 Shower Transfer(FIM): 7 Additional Short Term Goals: 1-Demonstrate ADL Tasks, 2-Verbalize Understanding , 3-ImproveStrength/Ariel 1=Demonstrate adherence to instructed precautions during ADL tasks. 2=Patient will verbalize/demonstrate understanding of assistive devices/ modifications for ADL. 3=Patient will improve strength/tolerance for activity to enable patient to perform ADL's. OT Hydrodynamics Professor Goals Correction Goals Time Frame: Oct 06, 2018 Eating (FIM): 7 Eating (QC): 6 Groomin Oral Hygiene (QC): 6 Bathing(FIM): 7 Bathing Location: L Arm, R Arm, L Upper Leg, R Upper Leg, L Lower Leg ( including foot), R Lower Leg (including foot), Chest, Abdomen, Buttocks, Perineal Area Shower/Bathe Self (QC): 6 Upper Body Dressing(FIM): 7 Upper Body Dressing (QC): 6 Lower Body Dressing(FIM): 7 Lower Body Dressing (QC): 6 On/Off Footwear (QC): 6 Toileting(FIM): 7 Toileting Hygiene (QC): 6 Transfers (B,C,W/C) (FIM): 7 Toilet/Commode Transfer(FIM): 7 Toilet/Commode Transfer (QC): 6 Tub Transfer(FIM): 7 Shower Transfer(FIM): 7 Additional Goals: 1-Demonstrate ADL Tasks, 2-Verbalize Understanding, 3- ImproveStrength/Ariel 1=Demonstrate adherence to instructed precautions during ADL tasks. 2=Patient will verbalize/demonstrate understanding of assistive devices/ modifications for ADL. 3=Patient will improve strength/tolerance for activity to enable patient to perform ADL's. OT Education/Plan Problem List/Assessment Assessment: Decreased Activ Tolerance, Decreased Safety Aware, Decreased UE Strength, Dependent Transfers, Impaired Bed Mobility, Impaired Funct Balance, Impaired Self-Care Skills Discharge Recommendations Plan/Recommendations: Continue POC Therapy D/C Recommendations: Home w/ Family Support Equpiment Recommendations-D/C: Extended Bath Bench, Extended Shower Sprayer, Spoon Maker, Hip Kit, Long [place] Patient/Family Goals To return home with Independently with AD. Treatment Plan/Plan of Care Treatment,Training & Education: Yes Patient would benefit from OT for education, treatment and training to promote independence in ADL's, mobility, safety and/or upper extremity function for ADL' s. Plan of Care: ADL Retraining, Caregiver Training, Functional Mobility, Group Exercise/Act as Ind, UE Funct Exercise/Act, UE Neuromus Re-Ed/Coord Treatment Duration: Oct 06, 2018 Frequency: 5 times per week Estimated Hrs Per Day: 1.5 hours per day Agreement: Yes Rehab Potential: Good Time/GCodes Start Time: 08:00 Stop Time: 09:00 Total Time Billed (hr/min): 60 Billed Treatment Time 1, ADL 45 min , Ex 15 min. Total 60 minutes. DYLLAN GANT OT Sep 10, 2018 10:53
--- NOTE | 2018-09-10 14:33 | Therapy Group Daily Note ---
Therapy Daily Group Note Patient Education Topic Energy Cons Exercises LE Seated Exercise, UE Exercise Session Ratio (pt:therapist): 3:1 Goal of Session: Energy Conservation Tech. Goal Met for this Session: Yes Pt Benefit of Group: Contributions to Others, F/U Use of Strategies @Home, Increased Functional Strength, Recognition of Peers, Socialization Pt. participated in group PT IT session. Pt. ambulated to and from with FWW SBA. Pt. was social introducing himself and sharing a mischievious story from his youth. Energy conservation was education topic with focus today on sit to stand techniques with seat height variations using cushions, platforms under recliner at home or use of lift recline chair. Lift recline was demonstrated with variations demonstrated for getting more comfortable in chair as well as how to change positions for supine and seated exercise. Pts. all participated in seated U&L extremity exercises. Pt. to room after group, up in chair with call johnson at hand Start Time: 13:00 Stop Time: 14:20 Total Billed Treatment Time: 80 Total Billed Treatment 1,GRP [facility] Sep 10, 2018 14:33
[2018-09-10 18:00] VITALS: BP 110/82
[2018-09-10] MEDS: FINASTERIDE (PROSCAR) 5 MG TAB PO SCH (18:20)
[2018-09-10] MEDS: TRIM/SULFAMETH 160/800 (SEPTRA DS) TAB PO SCH (18:20)
[2018-09-10] MEDS: TAMSULOSIN 0.4 MG (FLOMAX) CAP PO SCH (18:20)
[2018-09-10] MEDS: HYDROcodone/APAP 10 MG/325 MG (LORTAB) TAB PO PRN (20:29)
--- NOTE | 2018-09-10 20:29 | NUR ---
Patient reports pain et discoloration in R knee. Also reports the area feels "cold." This nurse palpated BLE et both feel slightly cold to the touch, but not abnormally so. Some bruising noted to right knee. Patient reports pain in the area et rates 3/10. States it feels more like pressure. Area noted to be edematous 2+, bilat. Popliteal pulse WNL. Pedal pulses WNL. Capillary refill bilat great toe WNL. Patient given Lorcet to assist with pain. Will monitor.
--- NOTE | 2018-09-10 21:47 | NUR ---
Dr Alejandro notified of patient's report of pain, pressure, et discoloration to R knee. No new orders at this time.
[2018-09-11 05:49] VITALS: BP 122/83
[2018-09-11] MEDS: MULTIVIT W/MINERALS TAB (THERAGRAN M) PO SCH (06:17)
[2018-09-11] MEDS: metFORMIN XR 500 MG (GLUCOPHAGE XR) TAB PO SCH ×2 (06:17→17:07)
[2018-09-11] MEDS: TRIM/SULFAMETH 160/800 (SEPTRA DS) TAB PO SCH ×2 (06:17→17:08)
[2018-09-11] MEDS: inSUlin ASPART (NovoLOG) 1 UNIT/0.01 ML (CHARGE PER UNIT) SC SCH ×4 (06:18→21:27)
[2018-09-11 09:00] LABS: BASOPHILS % (AUTO) 0 % (0-10); EOSINOPHILS # (AUTO) 0.2 10^3/uL (0.0-0.3); EOSINOPHILS % (AUTO) 2 % (0-10); HEMATOCRIT 29 % (40-54); HEMOGLOBIN 9.4 G/DL (13.3-17.7); LYMPHOCYTES # (AUTO) 1.3 X 10^3 (1.0-4.0); LYMPHOCYTES % (AUTO) 13 % (12-44); MEAN CORPUSCULAR HEMOGLOBIN 28 PG (25-34); MEAN CORPUSCULAR HGB CONC 32 G/DL (32-36); MEAN CORPUSCULAR VOLUME 87 FL (80-99); MEAN PLATELET VOLUME 8.7 FL (7.4-10.4); MONOCYTES # (AUTO) 1.1 X 10^3 (0.0-1.0); MONOCYTES % (AUTO) 11 % (0-12); NEUTROPHILS # (AUTO) 7.5 X 10^3 (1.8-7.8); NEUTROPHILS % (AUTO) 74 % (42-75); PLATELET COUNT 290 10^3/uL (130-400); RED CELL DISTRIBUTION WIDTH 15.4 % (10.0-14.5); WHITE BLOOD COUNT 10.2 10^3/uL (4.3-11.0)
[2018-09-11 09:21] LABS: ALANINE AMINOTRANSFERASE 47 U/L (0-55); ALBUMIN 2.9 GM/DL (3.2-4.5); ALKALINE PHOSPHATASE 89 U/L (40-136); BILIRUBIN,TOTAL 0.4 MG/DL (0.1-1.0); BUN/CREATININE RATIO 18; CALCIUM 8.1 MG/DL (8.5-10.1); CARBON DIOXIDE 25 MMOL/L (21-32); CHLORIDE 100 MMOL/L (98-107); GFR ESTIMATED > 60; GLUCOSE 155 MG/DL (70-105); POTASSIUM 2.9 MMOL/L (3.6-5.0); SODIUM 135 MMOL/L (135-145); TOTAL PROTEIN 5.9 GM/DL (6.4-8.2)
[2018-09-11] MEDS: meTOproloL SUCCINATE 50 MG (TOPROL XL) TAB PO SCH (09:45)
[2018-09-11] MEDS: CYCLOBENZAPRINE 10 MG (FLEXERIL) TAB PO SCH ×3 (09:45→21:31)
[2018-09-11] MEDS: GABAPENTIN 600 MG (NEURONTIN) TAB PO SCH ×3 (09:45→21:30)
--- NOTE | 2018-09-11 11:17 | PM&R Progress Note ---
Subjective HPI/CC On Admission Date Seen by Provider: Sep 11, 2018 Time Seen by Provider: 11:15 CC: Severe debility following an extensive C3-6 Laminectomy and C3-T2 PSF with instrumentation uncomplicated by Dr Garcia POD # 3 HPI: This is a 63-year-old white male who presented to inpatient rehabilitation due to severe debility following extensive spine surgery with hardware placement. He required ICU monitoring due to the profound impact the procedure had placing him at risk for acute blood loss, respiratory failure and arrhythmia. He did well during ICU stay did have acute renal failure creatinine 1.6 but that resolved with aggressive IV fluids. He is noncompliant with obstructive sleep apnea treatment with CPAP and he was maintain on oxygen during ICU stay. Pain was controlled and he minimized the amount of pain medication he took which is been very helpful in a more rapid recovery but still needed aggressive physical therapy and management in the inpatient rehabilitation unit. Currently patient is doing well pain is controlled and I have reordered metformin home medication due to resolution of acute renal failure. Subjective/Events-last exam Patient doing well by only taking for back but left knee required Lortab Culture reviewed and started on Bactrim DS BID and will wait for sensitivity in the meantime per Dr Garcia recdeon Bowel movements are normal but loose Checked meds and labs Overall feels like he is making progress a little at a time Low potassium at 2.9 so will supplement Anemia noted will check iron level Sore throat reports but no pus in OP and he agrees for Chloraseptic Urinary issues reported so will bladder scan him to see if any residual Review of Systems HEENT: Sore Throat Genitourinary: Retention Musculoskeletal: back pain, leg pain Objective Exam Vital Signs Vital Signs Date Time Temp Pulse Resp B/P (MAP) Pulse Ox O2 Delivery O2 Flow Rate FiO2 09/11/18 09:00 Room Air 09/11/18 05:49 98.0 102 18 122/83 (96) 95 Capillary Refill : General Appearance: No Apparent Distress, WD/WN, Chronically ill, Obese HEENT: PERRL/EOMI, Normal ENT Inspection, Pharynx Normal (except uvula inflammed), Moist Mucous Membranes Neck: Full Range of Motion, Normal Inspection, Non Tender, Supple Respiratory: Chest Non Tender, Lungs Clear, Normal Breath Sounds, No Accessory Muscle Use, No Respiratory Distress, Decreased Breath Sounds Cardiovascular: Regular Rate, Rhythm, No Edema, No Gallop, No JVD, No Murmur Gastrointestinal: Normal Bowel Sounds, No Organomegaly, No Pulsatile Mass, Non Tender, Soft Back: Decreased Range of Motion, Muscle Spasm, Vertebral Tenderness Extremity: Normal Capillary Refill, Normal Inspection, Normal Range of Motion, Non Tender, No Calf Tenderness, No Pedal Edema Neurologic/Psychiatric: Alert, Oriented x3, No Motor/Sensory Deficits, Depressed Affect Skin: Normal Color, Warm/Dry Lymphatic: No Adenopathy Results/Procedures Lab Laboratory Tests 09/11/18 08:55 Patient resulted labs reviewed. Assessment/Plan Assessment and Plan Assess & Plan/Chief Complaint Assessment: Status post extensive spine surgery with hardware placement with subsequent severe debility requiring inpatient rehabilitation Hypertension Status post acute renal failure Diabetes mellitus Obstructive sleep apnea noncompliant with sleep apnea treatment Obesity Sore throat ordered Chloraseptic spray Urinary retention sensation? Hypokalemia Plan: Pain control Intensive therapies Monitor bowel and bladder function Bladder scan PVR Replace potassium (1) Fixation hardware in spine (2) History of BPH (3) KIMANI (obstructive sleep apnea) (4) Obesity (5) Acute renal failure Assessment & Plan: Resolved (6) Diabetes mellitus (7) Hypokalemia (8) Urinary retention (9) Left knee pain (10) Sore throat (11) Anemia (12) Leukocytosis Clinical Quality Measures DVT/VTE Risk/Contraindication: Risk Factor Score Per Nursin RFS Level Per Nursing on Admit: 4+=Very High MODESTO SOLIS DO Sep 11, 2018 11:17
--- NOTE | 2018-09-11 11:57 | Physical Therapy Daily Note ---
PT Daily Note-Current Subjective Pt agreeable to PT treatment. States he has been up with walker in room without supervision walking to and from bathroom Pain Numeric Pain Scale: 8 Location: Left (leg) Comment: Pt states he wants to wait a couple more hours before asking for pain med Appearance Pt in bed alert and awake upon arrival At end of session, pt in recliner with LE's elevated, call light, phone and bedside table within reach, ordering his lunch Mental Status Patient Orientation: Normal For Age back brace Transfers Therapy Code Descriptions/Definitions Functional [place] Measure: 0=Not Assessed/NA 4=Minimal Assistance 1=Total Assistance 5=Supervision or Setup 2=Maximal Assistance 6=Modified [place] 3=Moderate Assistance 7=Complete [place] Therapy Quality Codes: 6 Independent with activity with or without an assistive device 5 Patient requires set up or clean up by helper. Patient completes activity by themselves 4 Supervision or touching assist (CGA). [place] provide cues , steadying assist 3 The helper provides less than half the effort to complete the activity 2 The helper provides more than half the effort to complete the activity 1 Dependent. The helper does all the effort to complete an activity 7 Patient refused to complete or attempt activity 9 The patient did not perform the activity before the current illness or injury 88 Not attempted due to Medical conditions or safety concerns Transfers (B, C, W/C) (FIM): 6 Scootin Rollin Supine to/from Sit: 6 Sit to/from Stand: 6 Pt demonstating safe and proper technique with all transfers. Instructed in improving technique with lower chairs by scooting further to the chair seat edge , pulling feet further back and leaning forward at the hips to ease effort to stand and continue protecting back Weight Bearing Right Lower Extremity: Right Weight Bearing/Tolerated Left Lower Extremity: Left Weight Bearing/Tolerated Gait Training Does the Patient Walk?: Yes Gait (FIM): 5 Distance (FIM): 3=150 ft Distance: 300 Gait Level of Assist: 5 Gait Persons Needed: 1 Gait Assistive Device: FWW steady slow gait, back brace Treatments gait transfer safety training Assessment Current Status: Good Progress PT Short Term Goals Short Term Goals Time Frame: Sep 15, 2018 Transfers (B,C,W/C) (FIM): 4 Gait (FIM): 4 Distance (FIM): 3=150 ft Gait Distance Comment: 150' Gait Level of Assist: 4 Gait Assistive Device: FWW PT Snf Goals Snf Goals PT Snf Goals Time Frame: Sep 29, 2018 Transfers (B,C,W/C) (FIM): 5 Sit to Lying (QC): 4 Lying-Sitting on Side/Bed(QC): 4 Sit to Stand (QC): 4 Rollin Roll Left to Right (QC): 4 Chair/[id number] Xfer(QC): 4 Car Transfer (QC): 4 Does the Patient Walk: Yes Gait (FIM): 5 Gait distance (FIM): 3=150 ft Distance: 300' Walk 10 feet (QC): 4 Walk 10ft-Uneven Surface(QC): 4 Walk 50ft with 2 Turns (QC): 4 Walk 150 ft (QC): 4 Gait Level of Assist: 5 Gait Assistive Device: FWW Stairs (FIM): 2 # of Steps: 4 1 Step (curb) (QC): 4 4 Steps (QC): 4 Stairs Level Of Assist: 5 PT Plan Treatment/Plan Treatment Plan: Continue Plan of Care Treatment Plan: Bed Mobility, Education, Functional Activity Ariel, Functional Strength, Group Therapy, Gait, Safety, Therapeutic Exercise, Transfers Treatment Duration: Sep 29, 2018 Frequency: At least 5 of 7 days/Wk (IRF) Estimated Hrs Per Day: 1.5 hours per day Patient and/or Family Agrees t: Yes Safety Risks/Education Patient Education: Gait Training, Transfer Techniques, Safety Issues Teaching Recipient: Patient Teaching Methods: Demonstration, Discussion Response to Teaching: Verbalize Understanding, Return Demonstration Time/GCodes Time In: 1132 Time Out: 1147 Total Billed Treatment Time: 15 Total Billed Treatment 1 visit, GT x 1 unit KIMBERLY MONREAL CASH APPLICATIONS CLERK Sep 11, 2018 11:57
[2018-09-11] MEDS ORDERED: CHLORASEPTIC SPRAY 177 ML LIQUID MC PRN (14:30)
[2018-09-11] MEDS ORDERED: KCL 10 MEQ TAB (MICRO K) PO NR (14:31)
[2018-09-11] MEDS: TAMSULOSIN 0.4 MG (FLOMAX) CAP PO SCH (17:07)
[2018-09-11] MEDS: FINASTERIDE (PROSCAR) 5 MG TAB PO SCH (17:07)
[2018-09-11 18:00] VITALS: BP 131/80
[2018-09-11] MEDS: ACETAMINOPHEN 325 MG TABLET PO PRN (21:31)
[2018-09-11] MEDS: KCL 10 MEQ TAB (MICRO K) PO SCH (21:31)
[2018-09-12 05:28] VITALS: BP 135/83
[2018-09-12] MEDS: inSUlin ASPART (NovoLOG) 1 UNIT/0.01 ML (CHARGE PER UNIT) SC SCH ×4 (05:51→20:28)
[2018-09-12] MEDS: TRIM/SULFAMETH 160/800 (SEPTRA DS) TAB PO SCH ×2 (06:42→17:15)
[2018-09-12] MEDS: MULTIVIT W/MINERALS TAB (THERAGRAN M) PO SCH (06:42)
[2018-09-12] MEDS: metFORMIN XR 500 MG (GLUCOPHAGE XR) TAB PO SCH ×2 (06:42→17:16)
[2018-09-12 08:20] VITALS: BP 119/74
[2018-09-12] MEDS: GABAPENTIN 600 MG (NEURONTIN) TAB PO SCH ×3 (08:22→21:13)
[2018-09-12] MEDS: KCL 10 MEQ TAB (MICRO K) PO SCH ×2 (08:22→21:13)
[2018-09-12] MEDS: meTOproloL SUCCINATE 50 MG (TOPROL XL) TAB PO SCH (08:22)
[2018-09-12] MEDS: ACETAMINOPHEN 325 MG TABLET PO PRN ×2 (08:22→21:12)
[2018-09-12] MEDS: CYCLOBENZAPRINE 10 MG (FLEXERIL) TAB PO SCH ×3 (08:22→21:13)
--- NOTE | 2018-09-12 11:33 | NUR ---
Walked in halls with SBA using a gait belt FWW for safety. Back brace on.
--- NOTE | 2018-09-12 11:42 | PM&R Progress Note ---
Subjective HPI/CC On Admission Date Seen by Provider: Sep 12, 2018 Time Seen by Provider: 11:20 CC: Severe debility following an extensive C3-6 Laminectomy and C3-T2 PSF with instrumentation uncomplicated by Dr Garcia POD # 3 HPI: This is a 63-year-old white male who presented to inpatient rehabilitation due to severe debility following extensive spine surgery with hardware placement. He required ICU monitoring due to the profound impact the procedure had placing him at risk for acute blood loss, respiratory failure and arrhythmia. He did well during ICU stay did have acute renal failure creatinine 1.6 but that resolved with aggressive IV fluids. He is noncompliant with obstructive sleep apnea treatment with CPAP and he was maintain on oxygen during ICU stay. Pain was controlled and he minimized the amount of pain medication he took which is been very helpful in a more rapid recovery but still needed aggressive physical therapy and management in the inpatient rehabilitation unit. Currently patient is doing well pain is controlled and I have reordered metformin home medication due to resolution of acute renal failure. Subjective/Events-last exam Patient doing well and is walking around well with walker and assistance Bactrim tolerated well Bowel movements are loose so holdin BM regimen Checked meds and labs Overall feels like he is making progress a little at a time Low potassium yesterday at 2.9 so will maintain supplement Sore throat improved on Chloraseptic Urinary issues improved Review of Systems General: Fatigue Musculoskeletal: back pain Objective Exam Vital Signs Vital Signs Date Time Temp Pulse Resp B/P (MAP) Pulse Ox O2 Delivery O2 Flow Rate FiO2 09/12/18 10:12 Room Air 09/12/18 08:20 99 18 119/74 (89) 96 09/12/18 05:28 97.6 Capillary Refill : General Appearance: No Apparent Distress, WD/WN, Chronically ill, Obese HEENT: PERRL/EOMI, Normal ENT Inspection, Pharynx Normal (except uvula inflammed), Moist Mucous Membranes Neck: Full Range of Motion, Normal Inspection, Non Tender, Supple Respiratory: Chest Non Tender, Lungs Clear, Normal Breath Sounds, No Accessory Muscle Use, No Respiratory Distress, Decreased Breath Sounds Cardiovascular: Regular Rate, Rhythm, No Edema, No Gallop, No JVD, No Murmur Gastrointestinal: Normal Bowel Sounds, No Organomegaly, No Pulsatile Mass, Non Tender, Soft Back: Decreased Range of Motion, Muscle Spasm, Vertebral Tenderness Extremity: Normal Capillary Refill, Normal Inspection, Normal Range of Motion, Non Tender, No Calf Tenderness, No Pedal Edema Neurologic/Psychiatric: Alert, Oriented x3, No Motor/Sensory Deficits, Depressed Affect Skin: Normal Color, Warm/Dry Lymphatic: No Adenopathy Results/Procedures Lab Patient resulted labs reviewed. Assessment/Plan Assessment and Plan Assess & Plan/Chief Complaint Assessment: Status post extensive spine surgery with hardware placement with subsequent severe debility requiring inpatient rehabilitation Hypertension Status post acute renal failure Diabetes mellitus Obstructive sleep apnea noncompliant with sleep apnea treatment Obesity Sore throat ordered Chloraseptic spray now improved Urinary retention sensation? doing better now Hypokalemia supplementing Plan: Pain control Intensive therapies Monitor bowel and bladder function Bladder scan PVR prn Replace potassium (1) Fixation hardware in spine (2) History of BPH (3) KIMANI (obstructive sleep apnea) (4) Obesity (5) Acute renal failure Assessment & Plan: Resolved (6) Diabetes mellitus (7) Hypokalemia (8) Urinary retention (9) Left knee pain (10) Sore throat (11) Anemia (12) Leukocytosis Clinical Quality Measures DVT/VTE Risk/Contraindication: Risk Factor Score Per Nursin RFS Level Per Nursing on Admit: 4+=Very High MODESTO SOLIS DO Sep 12, 2018 11:42
[2018-09-12] MEDS: FINASTERIDE (PROSCAR) 5 MG TAB PO SCH (17:16)
[2018-09-12] MEDS: TAMSULOSIN 0.4 MG (FLOMAX) CAP PO SCH (17:16)
[2018-09-12 17:19] VITALS: BP 122/77
[2018-09-13 06:00] VITALS: BP 147/89
[2018-09-13] MEDS: inSUlin ASPART (NovoLOG) 1 UNIT/0.01 ML (CHARGE PER UNIT) SC SCH ×4 (06:23→21:39)
[2018-09-13] MEDS: metFORMIN XR 500 MG (GLUCOPHAGE XR) TAB PO SCH ×2 (06:43→17:08)
[2018-09-13] MEDS: TRIM/SULFAMETH 160/800 (SEPTRA DS) TAB PO SCH ×2 (06:43→17:08)
[2018-09-13] MEDS: MULTIVIT W/MINERALS TAB (THERAGRAN M) PO SCH (06:43)
[2018-09-13] MEDS: ACETAMINOPHEN 325 MG TABLET PO PRN ×3 (06:47→17:09)
[2018-09-13] MEDS: KCL 10 MEQ TAB (MICRO K) PO SCH ×2 (08:57→20:51)
[2018-09-13 08:58] VITALS: BP 129/76
[2018-09-13] MEDS: CYCLOBENZAPRINE 10 MG (FLEXERIL) TAB PO SCH ×3 (08:58→20:51)
[2018-09-13] MEDS: GABAPENTIN 600 MG (NEURONTIN) TAB PO SCH ×3 (08:58→20:51)
[2018-09-13] MEDS: meTOproloL SUCCINATE 50 MG (TOPROL XL) TAB PO SCH (08:58)
--- NOTE | 2018-09-13 09:31 | PM&R Progress Note ---
Subjective HPI/CC On Admission Date Seen by Provider: Sep 13, 2018 Time Seen by Provider: 09:30 CC: Severe debility following an extensive C3-6 Laminectomy and C3-T2 PSF with instrumentation uncomplicated by Dr Garcia POD # 3 HPI: This is a 63-year-old white male who presented to inpatient rehabilitation due to severe debility following extensive spine surgery with hardware placement. He required ICU monitoring due to the profound impact the procedure had placing him at risk for acute blood loss, respiratory failure and arrhythmia. He did well during ICU stay did have acute renal failure creatinine 1.6 but that resolved with aggressive IV fluids. He is noncompliant with obstructive sleep apnea treatment with CPAP and he was maintain on oxygen during ICU stay. Pain was controlled and he minimized the amount of pain medication he took which is been very helpful in a more rapid recovery but still needed aggressive physical therapy and management in the inpatient rehabilitation unit. Currently patient is doing well pain is controlled and I have reordered metformin home medication due to resolution of acute renal failure. Subjective/Events-last exam Patient doing well and is walking around well with walker and assistance and just had a shower and feels great Bactrim tolerated well Bowel movements are loose so holding BM regimen still Checked meds and labs Overall feels like he is making progress today Low potassium 2 days ago at 2.9 so will maintain supplement Sore throat improved on Chloraseptic Urinary issues improved today Objective Exam Vital Signs Vital Signs Date Time Temp Pulse Resp B/P (MAP) Pulse Ox O2 Delivery O2 Flow Rate FiO2 09/13/18 09:00 Room Air 09/13/18 08:58 129/76 (93) 09/13/18 06:00 97.7 95 20 96 Capillary Refill : General Appearance: No Apparent Distress, WD/WN, Chronically ill, Obese HEENT: PERRL/EOMI, Normal ENT Inspection, Pharynx Normal (except uvula inflammed), Moist Mucous Membranes Neck: Full Range of Motion, Normal Inspection, Non Tender, Supple Respiratory: Chest Non Tender, Lungs Clear, Normal Breath Sounds, No Accessory Muscle Use, No Respiratory Distress, Decreased Breath Sounds Cardiovascular: Regular Rate, Rhythm, No Edema, No Gallop, No JVD, No Murmur Gastrointestinal: Normal Bowel Sounds, No Organomegaly, No Pulsatile Mass, Non Tender, Soft Back: Decreased Range of Motion, Muscle Spasm, Vertebral Tenderness Extremity: Normal Capillary Refill, Normal Inspection, Normal Range of Motion, Non Tender, No Calf Tenderness, No Pedal Edema Neurologic/Psychiatric: Alert, Oriented x3, No Motor/Sensory Deficits, Depressed Affect Skin: Normal Color, Warm/Dry Lymphatic: No Adenopathy Results/Procedures Lab Patient resulted labs reviewed. Assessment/Plan Assessment and Plan Assess & Plan/Chief Complaint Assessment: Status post extensive spine surgery with hardware placement with subsequent severe debility requiring inpatient rehabilitation Hypertension Status post acute renal failure Diabetes mellitus Obstructive sleep apnea noncompliant with sleep apnea treatment Obesity Sore throat ordered Chloraseptic spray now improved Urinary retention sensation? doing better now Hypokalemia supplementing Plan: Pain control Intensive therapies Monitor bowel and bladder function Bladder scan PVR prn Replace potassium (1) Fixation hardware in spine (2) History of BPH (3) KIMANI (obstructive sleep apnea) (4) Obesity (5) Acute renal failure Assessment & Plan: Resolved (6) Diabetes mellitus (7) Hypokalemia (8) Urinary retention (9) Left knee pain (10) Sore throat (11) Anemia (12) Leukocytosis Clinical Quality Measures DVT/VTE Risk/Contraindication: Risk Factor Score Per Nursin RFS Level Per Nursing on Admit: 4+=Very High MODESTO SOLIS DO Sep 13, 2018 09:30
--- NOTE | 2018-09-13 10:41 | Occupational Ther Daily Note ---
OT Current Status-Daily Note Subjective Pt in recliner, oriented, alert, cooperative & agree for therapy. Pt states that , " I got swelling on my both legs. don't know why.? " Pain Numeric Pain Scale: 4 Location: Lower Location Body Site: Knee Pain Description: Ache, Throbbing Mental Status/Objective Patient Orientation: Person, Place, Time Therapy Code Descriptions/Definitions Functional [place] Measure: 0=Not Assessed/NA 4=Minimal Assistance 1=Total Assistance 5=Supervision or Setup 2=Maximal Assistance 6=Modified [place] 3=Moderate Assistance 7=Complete [place] ADL-Treatment Pt participated in shower activity, toilet & grooming activity, func mobility , dressing/undressing UB/LB garments & strengthening ex to BUE. Pt needs SBA in LB & cleaning his back during shower . Pt started using long handled bath- sponge to wash feet & back with soap & water. Pt dress UB & LB garments Independently. Fatigue soon due to morbid obese, needs frequent rest periods in between activity. Pt walk fro room to therapy gym for exercises. Pt completed 30 min on arm -bike to strengthen BUE to participate in all self care tasks & to push up from recliner to stand with FWW. Therapy Code Descriptions/Definitions Functional [place] Measure: 0=Not Assessed/NA 4=Minimal Assistance 1=Total Assistance 5=Supervision or Setup 2=Maximal Assistance 6=Modified [place] 3=Moderate Assistance 7=Complete [place] Therapy Quality Codes: 6 Independent with activity with or without an assistive device 5 Patient requires set up or clean up by helper. Patient completes activity by themselves 4 Supervision or touching assist (CGA). [place] provide cues , steadying assist 3 The helper provides less than half the effort to complete the activity 2 The helper provides more than half the effort to complete the activity 1 Dependent. The helper does all the effort to complete an activity 7 Patient refused to complete or attempt activity 9 The patient did not perform the activity before the current illness or injury 88 Not attempted due to Medical conditions or safety concerns Eating (FIM): 7 Eating (QC): 6 Grooming (FIM): 7 Oral Hygiene (QC): 6 Bathing (FIM): 5 Bathing Location: L Arm, R Arm, L Upper Leg, R Upper Leg, L Lower Leg ( including foot), R Lower Leg (including foot), Chest, Abdomen, Buttocks, Perineal Area Shower/Bathe Self (QC): 5 Upper Body (FIM): 7 Upper Body Dressing (QC): 6 Lower Body Dressing (FIM): 5 Lower Body Dressing (QC): 5 On/Off Footwear (QC): 6 Toileting (FIM): 7 Toileting Hygiene (QC): 6 Transfers (B, C, W/C) (FIM): 7 Toilet/Commode Transfer (FIM): 7 Toilet Transfer (QC): 6 Tub Transfer(FIM): 0 Shower Transfer(FIM): 7 Education OT Patient Education: Correct positioning, Safety issues Teaching Recipient: Patient Teaching Methods: Demonstration Response to Teaching: Verbalize Understanding OT Short Term Goals Short Term Goals Time Frame: Sep 22, 2018 Eating(FIM): 7 Grooming(FIM): 7 Bathing(FIM): 5 Bathing Location: L Arm, R Arm, L Upper Leg, R Upper Leg, L Lower Leg ( including foot), R Lower Leg (including foot), Chest, Abdomen, Buttocks, Perineal Area Upper Body Dressing(FIM): 6 Lower Body Dressing(FIM): 5 Toileting(FIM): 7 Transfers (B,C,W/C) (FIM): 4 Toilet/Commode Transfer(FIM): 7 Tub Transfer(FIM): 0 Shower Transfer(FIM): 7 Additional Short Term Goals: 1-Demonstrate ADL Tasks, 2-Verbalize Understanding , 3-ImproveStrength/Ariel 1=Demonstrate adherence to instructed precautions during ADL tasks. 2=Patient will verbalize/demonstrate understanding of assistive devices/ modifications for ADL. 3=Patient will improve strength/tolerance for activity to enable patient to perform ADL's. OT Alf Goals Alf Goals Time Frame: Oct 06, 2018 Eating (FIM): 7 Eating (QC): 6 Groomin Oral Hygiene (QC): 6 Bathing(FIM): 7 Bathing Location: L Arm, R Arm, L Upper Leg, R Upper Leg, L Lower Leg ( including foot), R Lower Leg (including foot), Chest, Abdomen, Buttocks, Perineal Area Shower/Bathe Self (QC): 6 Upper Body Dressing(FIM): 7 Upper Body Dressing (QC): 6 Lower Body Dressing(FIM): 7 Lower Body Dressing (QC): 6 On/Off Footwear (QC): 6 Toileting(FIM): 7 Toileting Hygiene (QC): 6 Transfers (B,C,W/C) (FIM): 7 Toilet/Commode Transfer(FIM): 7 Toilet/Commode Transfer (QC): 6 Tub Transfer(FIM): 7 Shower Transfer(FIM): 7 Additional Goals: 1-Demonstrate ADL Tasks, 2-Verbalize Understanding, 3- ImproveStrength/Ariel 1=Demonstrate adherence to instructed precautions during ADL tasks. 2=Patient will verbalize/demonstrate understanding of assistive devices/ modifications for ADL. 3=Patient will improve strength/tolerance for activity to enable patient to perform ADL's. OT Education/Plan Problem List/Assessment Assessment: Decreased Activ Tolerance, Decreased Safety Aware, Decreased UE Strength, Impaired Bed Mobility, Impaired Funct Balance, Impaired Self-Care Skills Discharge Recommendations Plan/Recommendations: Continue POC Therapy D/C Recommendations: Home w/ Family Support Equpiment Recommendations-D/C: Extended Bath Bench, Extended Shower Sprayer, Neurophysiological Technician Patient/Family Goals To return home with Independently with AD. Treatment Plan/Plan of Care Treatment,Training & Education: Yes Patient would benefit from OT for education, treatment and training to promote independence in ADL's, mobility, safety and/or upper extremity function for ADL' s. Plan of Care: ADL Retraining, Caregiver Training, Functional Mobility, Group Exercise/Act as Ind, UE Funct Exercise/Act, UE Neuromus Re-Ed/Coord Treatment Duration: Oct 06, 2018 Frequency: 5 times per week Estimated Hrs Per Day: 1.5 hours per day Agreement: Yes Rehab Potential: Good Time/GCodes Start Time: 09:00 Stop Time: 10:30 Total Time Billed (hr/min): 90 Billed Treatment Time 1, ADL 60 min , Ex 30 min. Total 90 minutes. DYLLAN GANT OT Sep 13, 2018 10:41
--- NOTE | 2018-09-13 12:42 | Physical Therapy Daily Note ---
PT Daily Note-Current Subjective Pt. agrees to Rx. States he feels he is doing better and feels he would like to think about going home on Wed. States his pain is down to 3/10 in left thigh/ hip area Pain Numeric Pain Scale: 3 Location: Left Location Body Site: Hip (thigh) Pain Description: Ache Mental Status Patient Orientation: Normal For Age Attachments: Other-See Comments (back brace) Transfers Therapy Code Descriptions/Definitions Functional [place] Measure: 0=Not Assessed/NA 4=Minimal Assistance 1=Total Assistance 5=Supervision or Setup 2=Maximal Assistance 6=Modified [place] 3=Moderate Assistance 7=Complete [place] Therapy Quality Codes: 6 Independent with activity with or without an assistive device 5 Patient requires set up or clean up by helper. Patient completes activity by themselves 4 Supervision or touching assist (CGA). [place] provide cues , steadying assist 3 The helper provides less than half the effort to complete the activity 2 The helper provides more than half the effort to complete the activity 1 Dependent. The helper does all the effort to complete an activity 7 Patient refused to complete or attempt activity 9 The patient did not perform the activity before the current illness or injury 88 Not attempted due to Medical conditions or safety concerns Transfers (B, C, W/C) (FIM): 6 Scootin Rollin Supine to/from Sit: 6 Sit to/from Stand: 6 Bed to/from Chair: 6 Car Transfer (QC): 6 pt. camila brace indep Weight Bearing Right Lower Extremity: Right Weight Bearing/Tolerated Left Lower Extremity: Left Weight Bearing/Tolerated Gait Training Does the Patient Walk?: Yes Gait (FIM): 6 Distance (FIM): 3=150 ft (200x3) Gait Level of Assist: 6 Gait Persons Needed: 0 Gait Assistive Device: FWW up ad kvng in room for toileting etc Stair Training Stair Training: Handrails/: 2 handrails Stairs (FIM): 5 #of Steps: 4 Stairs: Pattern: Step to Level of Assist: 5 household exception Exercises Supine Ex: Ankle pumps, Quad Set, Rolling, Glut sets, Heel Slides, Short Arc Quads, Scooting, Hip abd/add Supine Reps: 15 Seated Therapy Exercises: Ankle pumps, Sit to stand, Long arc quads, Hip flexion, Hip abd/add Seated Reps: 20 Standing: Hip Abduction, Hamstring curls, Heel/toe raises, Marching, Mini squats Standing Reps: 15 NuStep Minutes: 12 NuStep Workload: 3 Assessment Current Status: Good Progress PT Short Term Goals Short Term Goals Time Frame: Sep 15, 2018 Transfers (B,C,W/C) (FIM): 4 Gait (FIM): 4 Distance (FIM): 3=150 ft Gait Distance Comment: 150' Gait Level of Assist: 4 Gait Assistive Device: FWW PT Detention Goals Detention Goals PT Cold Patcher Goals Time Frame: Sep 29, 2018 Transfers (B,C,W/C) (FIM): 5 Sit to Lying (QC): 4 Lying-Sitting on Side/Bed(QC): 4 Sit to Stand (QC): 4 Rollin Roll Left to Right (QC): 4 Chair/Qdq-su-Kivjo Xfer(QC): 4 Car Transfer (QC): 4 Does the Patient Walk: Yes Gait (FIM): 5 Gait distance (FIM): 3=150 ft Distance: 300' Walk 10 feet (QC): 4 Walk 10ft-Uneven Surface(QC): 4 Walk 50ft with 2 Turns (QC): 4 Walk 150 ft (QC): 4 Gait Level of Assist: 5 Gait Assistive Device: FWW Stairs (FIM): 2 # of Steps: 4 1 Step (curb) (QC): 4 4 Steps (QC): 4 Stairs Level Of Assist: 5 PT Plan Treatment/Plan Treatment Plan: Continue Plan of Care Treatment Plan: Bed Mobility, Education, Functional Activity Ariel, Functional Strength, Group Therapy, Gait, Safety, Therapeutic Exercise, Transfers Treatment Duration: Sep 29, 2018 Frequency: At least 5 of 7 days/Wk (IRF) Estimated Hrs Per Day: 1.5 hours per day Patient and/or Family Agrees t: Yes Safety Risks/Education Patient Education: Gait Training, Transfer Techniques, Steps, Correct Positioning, Disease Process, Safety Issues Teaching Recipient: Patient Teaching Methods: Demonstration, Discussion Response to Teaching: Verbalize Understanding, Return Demonstration, Reinforcement Needed (for standing exercise technique) Time/GCodes Time In: 800 (1130) Time Out: 900 (1200) Total Billed Treatment Time: 90 Total Billed Treatment 1,EX30m,GT30m,FA30m G Codes Necessary: CHI Merlos WELLNESS INSTRUCTOR Sep 13, 2018 12:42
[2018-09-13] MEDS: guaiFENesin/DM (ROBITUSSIN DM) 10 ML UDC PO PRN ×2 (15:02→22:40)
--- NOTE | 2018-09-13 15:28 | NUR ---
COMPUTER ANALYST SUPERVISOR received notification from therapy staff that patient has requested discharge home on Thursday. Per therapy, patient was advanced to up ad kvng status. COMPUTER ANALYST SUPERVISOR spoke with nursing staff in regards to clinical concerns, RN believes wound can be managed at home if drainage decreases prior to discharge. Nursing staff has reported inconsistent drainage within the last several days.
[2018-09-13] MEDS: FINASTERIDE (PROSCAR) 5 MG TAB PO SCH (17:08)
[2018-09-13] MEDS: TAMSULOSIN 0.4 MG (FLOMAX) CAP PO SCH (17:09)
[2018-09-13 18:09] VITALS: BP 136/76
[2018-09-13] MEDS: HYDROcodone/APAP 10 MG/325 MG (LORTAB) TAB PO PRN (20:51)
[2018-09-14] MEDS: inSUlin ASPART (NovoLOG) 1 UNIT/0.01 ML (CHARGE PER UNIT) SC SCH ×4 (06:24→21:01)
[2018-09-14] MEDS: MULTIVIT W/MINERALS TAB (THERAGRAN M) PO SCH (06:25)
[2018-09-14] MEDS: TRIM/SULFAMETH 160/800 (SEPTRA DS) TAB PO SCH (06:25)
[2018-09-14] MEDS: metFORMIN XR 500 MG (GLUCOPHAGE XR) TAB PO SCH ×2 (06:25→16:37)
[2018-09-14 06:47] VITALS: BP 131/80
[2018-09-14 08:24] VITALS: BP 112/73
[2018-09-14] MEDS: meTOproloL SUCCINATE 50 MG (TOPROL XL) TAB PO SCH (08:25)
[2018-09-14] MEDS: CYCLOBENZAPRINE 10 MG (FLEXERIL) TAB PO SCH ×3 (08:25→21:00)
[2018-09-14] MEDS: guaiFENesin/DM (ROBITUSSIN DM) 10 ML UDC PO PRN ×3 (08:25→23:41)
[2018-09-14] MEDS: HYDROcodone/APAP 10 MG/325 MG (LORTAB) TAB PO PRN ×3 (08:25→16:36)
[2018-09-14] MEDS: GABAPENTIN 600 MG (NEURONTIN) TAB PO SCH ×3 (08:25→21:00)
[2018-09-14] MEDS: KCL 10 MEQ TAB (MICRO K) PO SCH ×3 (08:25→16:38)
--- NOTE | 2018-09-14 08:50 | Physical Therapy Daily Note ---
PT Daily Note-Current Subjective Pt. states he has had a change of situation. c/o pain in right flank and right buttock down in to his right leg at 8-9/10. Pt. states it all started last night after a pretty sever coughing spell. Nurse was advised and consulted and gave pt. cough meds and pain meds. Pt. was instructed not to be up ad kvng now... to call for any help with mobility. Pt. states it took him 10 min to walk 12 ft to the bathroom secondary to pain. Pain Numeric Pain Scale: 8 Location: Right Location Body Site: Chest (flank) Pain Description: Stabbing Comment: c/o pain in right chest he states near his "liver" and in his right buttock Mental Status Patient Orientation: Normal For Age Attachments: Other-See Comments (back brace) Transfers Therapy Code Descriptions/Definitions Functional [place] Measure: 0=Not Assessed/NA 4=Minimal Assistance 1=Total Assistance 5=Supervision or Setup 2=Maximal Assistance 6=Modified [place] 3=Moderate Assistance 7=Complete [place] Therapy Quality Codes: 6 Independent with activity with or without an assistive device 5 Patient requires set up or clean up by helper. Patient completes activity by themselves 4 Supervision or touching assist (CGA). [place] provide cues , steadying assist 3 The helper provides less than half the effort to complete the activity 2 The helper provides more than half the effort to complete the activity 1 Dependent. The helper does all the effort to complete an activity 7 Patient refused to complete or attempt activity 9 The patient did not perform the activity before the current illness or injury 88 Not attempted due to Medical conditions or safety concerns Transfers (B, C, W/C) (FIM): 4 Sit to/from Stand: 4 used lift chair for sit to stand but moved very slowly and needed CGA, pt. states he is not able to take any steps, stood with FWW Weight Bearing Right Lower Extremity: Right Weight Bearing/Tolerated Left Lower Extremity: Left Weight Bearing/Tolerated Exercises Supine Ex: Ankle pumps, Quad Set, Glut sets, Heel Slides, Short Arc Quads, Scooting, Hip abd/add Supine Reps: 20 (x2) Seated Therapy Exercises: Ankle pumps, Sit to stand, Long arc quads, Hip flexion, Hip abd/add Seated Reps: 15 (x2) Treatments pushed self up in chair with head flat, this helped pain a little Assessment Current Status: Fair Progress pt. declines taking steps , states he would crumple, seated, reclined BP112/73, HR 106, temp 98.6, O2 sats 96% PT Short Term Goals Short Term Goals Time Frame: Sep 15, 2018 Transfers (B,C,W/C) (FIM): 4 Gait (FIM): 4 Distance (FIM): 3=150 ft Gait Distance Comment: 150' Gait Level of Assist: 4 Gait Assistive Device: FWW PT Fdc Goals Fdc Goals PT Truck Driver Instructor Goals Time Frame: Sep 29, 2018 Transfers (B,C,W/C) (FIM): 5 Sit to Lying (QC): 4 Lying-Sitting on Side/Bed(QC): 4 Sit to Stand (QC): 4 Rollin Roll Left to Right (QC): 4 Chair/Nhn-ic-Cudqm Xfer(QC): 4 Car Transfer (QC): 4 Does the Patient Walk: Yes Gait (FIM): 5 Gait distance (FIM): 3=150 ft Distance: 300' Walk 10 feet (QC): 4 Walk 10ft-Uneven Surface(QC): 4 Walk 50ft with 2 Turns (QC): 4 Walk 150 ft (QC): 4 Gait Level of Assist: 5 Gait Assistive Device: FWW Stairs (FIM): 2 # of Steps: 4 1 Step (curb) (QC): 4 4 Steps (QC): 4 Stairs Level Of Assist: 5 PT Plan Treatment/Plan Treatment Plan: Continue Plan of Care Treatment Plan: Bed Mobility, Education, Functional Activity Ariel, Functional Strength, Group Therapy, Gait, Safety, Therapeutic Exercise, Transfers Treatment Duration: Sep 29, 2018 Frequency: At least 5 of 7 days/Wk (IRF) Estimated Hrs Per Day: 1.5 hours per day Patient and/or Family Agrees t: Yes Safety Risks/Education Patient Education: Transfer Techniques, Correct Positioning Teaching Recipient: Patient Time/GCodes Time In: 800 Time Out: 900 Total Billed Treatment Time: 60 Total Billed Treatment 1,FA35,EX25 G Codes Necessary: CHI Merlos LINE PRODUCTION COOK Sep 14, 2018 08:50
--- NOTE | 2018-09-14 09:03 | PM&R Progress Note ---
Subjective HPI/CC On Admission Date Seen by Provider: Sep 14, 2018 Time Seen by Provider: 09:00 CC: Severe debility following an extensive C3-6 Laminectomy and C3-T2 PSF with instrumentation uncomplicated by Dr Garcia POD # 3 HPI: This is a 63-year-old white male who presented to inpatient rehabilitation due to severe debility following extensive spine surgery with hardware placement. He required ICU monitoring due to the profound impact the procedure had placing him at risk for acute blood loss, respiratory failure and arrhythmia. He did well during ICU stay did have acute renal failure creatinine 1.6 but that resolved with aggressive IV fluids. He is noncompliant with obstructive sleep apnea treatment with CPAP and he was maintain on oxygen during ICU stay. Pain was controlled and he minimized the amount of pain medication he took which is been very helpful in a more rapid recovery but still needed aggressive physical therapy and management in the inpatient rehabilitation unit. Currently patient is doing well pain is controlled and I have reordered metformin home medication due to resolution of acute renal failure. Subjective/Events-last exam Not feeling well. Dry cough a lot so ordered chest X-ray and labs, white count revealed 13,000 was stable Hgb and rest of electrolytes were normal. Will check UA. Pain is really increased so Dr. Garcia PA will see him today after nurse called. Was hoping for discharge but not until pain is controlled. Review of Systems General: Fatigue Musculoskeletal: back pain, leg pain Objective Exam Vital Signs Vital Signs Date Time Temp Pulse Resp B/P (MAP) Pulse Ox O2 Delivery O2 Flow Rate FiO2 09/14/18 18:15 97.8 96 20 119/77 (91) 96 Room Air Capillary Refill : General Appearance: WD/WN, Chronically ill, Mild Distress, Obese, Other ( fatigued today 09/14/18) HEENT: PERRL/EOMI, Normal ENT Inspection, Pharynx Normal (except uvula inflammed), Moist Mucous Membranes Neck: Full Range of Motion, Normal Inspection, Non Tender, Supple Respiratory: Chest Non Tender, Lungs Clear, Normal Breath Sounds, No Accessory Muscle Use, No Respiratory Distress Cardiovascular: Regular Rate, Rhythm, No Edema, No Gallop, No JVD, No Murmur Gastrointestinal: Normal Bowel Sounds, No Organomegaly, No Pulsatile Mass, Non Tender, Soft Back: Decreased Range of Motion, Muscle Spasm, Vertebral Tenderness Extremity: Normal Capillary Refill, Normal Inspection, Normal Range of Motion, Non Tender, No Calf Tenderness, No Pedal Edema Neurologic/Psychiatric: Alert, Oriented x3, No Motor/Sensory Deficits, Depressed Affect Skin: Normal Color, Warm/Dry Lymphatic: No Adenopathy Results/Procedures Lab Laboratory Tests 09/14/18 10:40 Patient resulted labs reviewed. Assessment/Plan Assessment and Plan Assess & Plan/Chief Complaint Assessment: Status post extensive spine surgery with hardware placement with subsequent severe debility requiring inpatient rehabilitation Hypertension Status post acute renal failure Diabetes mellitus Obstructive sleep apnea noncompliant with sleep apnea treatment Obesity Sore throat ordered Chloraseptic spray now improved Urinary retention sensation? doing better now Hypokalemia supplementing Leukocytosis with increased back pain and overall feels badly- check labs CXR UA Plan: Pain control Intensive therapies Monitor bowel and bladder function Bladder scan PVR prn Replace potassium Check labs and CXR and UA (1) Fixation hardware in spine (2) History of BPH (3) KIMANI (obstructive sleep apnea) (4) Obesity (5) Acute renal failure Assessment & Plan: Resolved (6) Diabetes mellitus (7) Hypokalemia (8) Urinary retention (9) Left knee pain (10) Sore throat (11) Anemia (12) Leukocytosis Clinical Quality Measures DVT/VTE Risk/Contraindication: Risk Factor Score Per Nursin RFS Level Per Nursing on Admit: 4+=Very High MODESTO SOLIS DO Sep 14, 2018 09:03
--- NOTE | 2018-09-14 10:11 | Occupational Ther Daily Note ---
OT Current Status-Daily Note Subjective Pt laying flat on the lift chair to comfort his back. Pt alert, oriented . Pt states that, " I got extremely severe back pain since last night after constant coughing , my lower right Ribs , & pain radiating to Right Upper Thigh muscles . " Pain Numeric Pain Scale: 9 Location: Lateral, Lower Location Body Site: Chest Pain Description: Stabbing, Throbbing, Sharp Comment: Notified to the Nurse regarding Pt's concern of severity of pain. Mental Status/Objective Patient Orientation: Person, Place, Time Therapy Code Descriptions/Definitions Functional [place] Measure: 0=Not Assessed/NA 4=Minimal Assistance 1=Total Assistance 5=Supervision or Setup 2=Maximal Assistance 6=Modified [place] 3=Moderate Assistance 7=Complete [place] ADL-Treatment Patient seen in supine flat position, to eliminate aggravation of pain , in his room , for Sponge -Bath , grooming & strengthening Ex to BUE. using hand gripper, 2 lb wts & red theraband. Therapy Code Descriptions/Definitions Functional [place] Measure: 0=Not Assessed/NA 4=Minimal Assistance 1=Total Assistance 5=Supervision or Setup 2=Maximal Assistance 6=Modified [place] 3=Moderate Assistance 7=Complete [place] Therapy Quality Codes: 6 Independent with activity with or without an assistive device 5 Patient requires set up or clean up by helper. Patient completes activity by themselves 4 Supervision or touching assist (CGA). [place] provide cues , steadying assist 3 The helper provides less than half the effort to complete the activity 2 The helper provides more than half the effort to complete the activity 1 Dependent. The helper does all the effort to complete an activity 7 Patient refused to complete or attempt activity 9 The patient did not perform the activity before the current illness or injury 88 Not attempted due to Medical conditions or safety concerns Eating (FIM): 6 Eating (QC): 5 Grooming (FIM): 6 Oral Hygiene (QC): 5 Bathing (FIM): 4 (Sponge bath . Pt wipes Both Arms, chest, abdomen, face, hairs ,neck & around neck. Pt could'nt reach LE due to pain.) Bathing Location: L Arm, R Arm, Chest, Abdomen Education OT Patient Education: Correct positioning Teaching Recipient: Patient Teaching Methods: Demonstration OT Short Term Goals Short Term Goals Time Frame: Sep 22, 2018 Eating(FIM): 7 Grooming(FIM): 7 Bathing(FIM): 5 Bathing Location: L Arm, R Arm, L Upper Leg, R Upper Leg, L Lower Leg ( including foot), R Lower Leg (including foot), Chest, Abdomen, Buttocks, Perineal Area Upper Body Dressing(FIM): 6 Lower Body Dressing(FIM): 5 Toileting(FIM): 7 Transfers (B,C,W/C) (FIM): 4 Toilet/Commode Transfer(FIM): 7 Tub Transfer(FIM): 0 Shower Transfer(FIM): 7 Additional Short Term Goals: 1-Demonstrate ADL Tasks, 2-Verbalize Understanding , 3-ImproveStrength/Ariel 1=Demonstrate adherence to instructed precautions during ADL tasks. 2=Patient will verbalize/demonstrate understanding of assistive devices/ modifications for ADL. 3=Patient will improve strength/tolerance for activity to enable patient to perform ADL's. OT Dockworker Goals Dockworker Goals Time Frame: Oct 06, 2018 Eating (FIM): 7 Eating (QC): 6 Groomin Oral Hygiene (QC): 6 Bathing(FIM): 7 Bathing Location: L Arm, R Arm, L Upper Leg, R Upper Leg, L Lower Leg ( including foot), R Lower Leg (including foot), Chest, Abdomen, Buttocks, Perineal Area Shower/Bathe Self (QC): 6 Upper Body Dressing(FIM): 7 Upper Body Dressing (QC): 6 Lower Body Dressing(FIM): 7 Lower Body Dressing (QC): 6 On/Off Footwear (QC): 6 Toileting(FIM): 7 Toileting Hygiene (QC): 6 Transfers (B,C,W/C) (FIM): 7 Toilet/Commode Transfer(FIM): 7 Toilet/Commode Transfer (QC): 6 Tub Transfer(FIM): 7 Shower Transfer(FIM): 7 Additional Goals: 1-Demonstrate ADL Tasks, 2-Verbalize Understanding, 3- ImproveStrength/Ariel 1=Demonstrate adherence to instructed precautions during ADL tasks. 2=Patient will verbalize/demonstrate understanding of assistive devices/ modifications for ADL. 3=Patient will improve strength/tolerance for activity to enable patient to perform ADL's. OT Education/Plan Problem List/Assessment Assessment: Decreased Activ Tolerance, Decreased Safety Aware, Decreased UE Strength, Dependent Transfers, Impaired Bed Mobility, Impaired Funct Balance, Impaired Self-Care Skills Discharge Recommendations Plan/Recommendations: Continue POC Therapy D/C Recommendations: Home w/ Family Support Equpiment Recommendations-D/C: Extended Shower Sprayer, Patternmaker All Around, Hip Kit, Sock Aide, Long [place]oe [place] Treatment Plan/Plan of Care Treatment,Training & Education: Yes Patient would benefit from OT for education, treatment and training to promote independence in ADL's, mobility, safety and/or upper extremity function for ADL' s. Plan of Care: ADL Retraining, Caregiver Training, Functional Mobility, Group Exercise/Act as Ind, UE Funct Exercise/Act, UE Neuromus Re-Ed/Coord Treatment Duration: Oct 06, 2018 Frequency: 5 times per week Estimated Hrs Per Day: 1.5 hours per day Agreement: Yes Rehab Potential: Good Time/GCodes Start Time: 09:00 (9:00-1000 =60 MIN) Stop Time: 14:00 ([id number]=30 MIN.) Total Time Billed (hr/min): 90 Billed Treatment Time 1, ADL 30 min, Ex 60 min Total 90 minutes. DYLLAN GANT OT Sep 14, 2018 10:11
[2018-09-14 10:45] LABS: BASOPHILS % (AUTO) 0 % (0-10); EOSINOPHILS # (AUTO) 0.2 10^3/uL (0.0-0.3); EOSINOPHILS % (AUTO) 2 % (0-10); HEMATOCRIT 30 % (40-54); HEMOGLOBIN 9.6 G/DL (13.3-17.7); LYMPHOCYTES # (AUTO) 2.3 X 10^3 (1.0-4.0); LYMPHOCYTES % (AUTO) 17 % (12-44); MEAN CORPUSCULAR HEMOGLOBIN 28 PG (25-34); MEAN CORPUSCULAR HGB CONC 32 G/DL (32-36); MEAN CORPUSCULAR VOLUME 89 FL (80-99); MEAN PLATELET VOLUME 8.7 FL (7.4-10.4); MONOCYTES # (AUTO) 1.5 X 10^3 (0.0-1.0); MONOCYTES % (AUTO) 11 % (0-12); NEUTROPHILS # (AUTO) 9.4 X 10^3 (1.8-7.8); NEUTROPHILS % (AUTO) 70 % (42-75); PLATELET COUNT 381 10^3/uL (130-400); RED CELL DISTRIBUTION WIDTH 15.9 % (10.0-14.5); WHITE BLOOD COUNT 13.4 10^3/uL (4.3-11.0)
[2018-09-14 11:01] LABS: ALANINE AMINOTRANSFERASE 40 U/L (0-55); ALBUMIN 2.8 GM/DL (3.2-4.5); ALKALINE PHOSPHATASE 83 U/L (40-136); BILIRUBIN,TOTAL 0.3 MG/DL (0.1-1.0); BUN/CREATININE RATIO 15; CARBON DIOXIDE 26 MMOL/L (21-32); CHLORIDE 102 MMOL/L (98-107); CREATININE SERUM 0.81 MG/DL (0.60-1.30); GFR ESTIMATED > 60; GLUCOSE 125 MG/DL (70-105); POTASSIUM 3.2 MMOL/L (3.6-5.0); SODIUM 138 MMOL/L (135-145); TOTAL PROTEIN 5.7 GM/DL (6.4-8.2)
[2018-09-14] MEDS: DOXYCYCLINE 100 MG (VIBRAMYCIN) TABLET PO SCH ×2 (11:09→16:37)
--- NOTE | 2018-09-14 11:48 | NUR ---
Patient was preliminarily anticipated for discharge tomorrow; however, due to increased pain and decrease in therapy tolerance/activity, discharge will be postponed until issues are resolved. RN has contacted Dr. Garcia's office to request onsite visit and new recommendations for pain management. Addendum: 09/14/18 at 1149 by GIANNI GU SS STONE BANKER discussed postponing discharge with patient, patient is agreeable.
--- NOTE | 2018-09-14 13:29 | Physical Therapy Daily Note ---
PT Daily Note-Current Subjective Pt. states his pain may be slightly better than this morning and he will try but he isnt thinking he can do it Pain Numeric Pain Scale: 6 Location: Right Location Body Site: Side Pain Description: Stabbing Appearance large amount of drainage noted in am and pm from incision on linen in chair and dressing per nurse Mental Status Patient Orientation: Normal For Age Transfers Therapy Code Descriptions/Definitions Functional [place] Measure: 0=Not Assessed/NA 4=Minimal Assistance 1=Total Assistance 5=Supervision or Setup 2=Maximal Assistance 6=Modified [place] 3=Moderate Assistance 7=Complete [place] Therapy Quality Codes: 6 Independent with activity with or without an assistive device 5 Patient requires set up or clean up by helper. Patient completes activity by themselves 4 Supervision or touching assist (CGA). [place] provide cues , steadying assist 3 The helper provides less than half the effort to complete the activity 2 The helper provides more than half the effort to complete the activity 1 Dependent. The helper does all the effort to complete an activity 7 Patient refused to complete or attempt activity 9 The patient did not perform the activity before the current illness or injury 88 Not attempted due to Medical conditions or safety concerns sit to stand from lift chair continues very guarded . Weight Bearing Right Lower Extremity: Right Weight Bearing/Tolerated Left Lower Extremity: Left Weight Bearing/Tolerated Exercises Supine Ex: Ankle pumps, Quad Set, Heel Slides, Scooting (up in chiar with head down), Hip abd/add Seated Therapy Exercises: Ankle pumps, Sit to stand, Long arc quads, Hip flexion Seated Reps: 12 Treatments pre gait standing activities for weight shift and standing walking , pt. very careful with each step and states pain increases. Assessment Current Status: Fair Progress change is status this date , poor tolerance for activity. PT Short Term Goals Short Term Goals Time Frame: Sep 15, 2018 Transfers (B,C,W/C) (FIM): 4 Gait (FIM): 4 Distance (FIM): 3=150 ft Gait Distance Comment: 150' Gait Level of Assist: 4 Gait Assistive Device: FWW PT Penitentiary Goals Penitentiary Goals PT Penitentiary Goals Time Frame: Sep 29, 2018 Transfers (B,C,W/C) (FIM): 5 Sit to Lying (QC): 4 Lying-Sitting on Side/Bed(QC): 4 Sit to Stand (QC): 4 Rollin Roll Left to Right (QC): 4 Chair/Fyt-gh-Nflxi Xfer(QC): 4 Car Transfer (QC): 4 Does the Patient Walk: Yes Gait (FIM): 5 Gait distance (FIM): 3=150 ft Distance: 300' Walk 10 feet (QC): 4 Walk 10ft-Uneven Surface(QC): 4 Walk 50ft with 2 Turns (QC): 4 Walk 150 ft (QC): 4 Gait Level of Assist: 5 Gait Assistive Device: FWW Stairs (FIM): 2 # of Steps: 4 1 Step (curb) (QC): 4 4 Steps (QC): 4 Stairs Level Of Assist: 5 PT Plan Treatment/Plan Treatment Plan: Continue Plan of Care Treatment Plan: Bed Mobility, Education, Functional Activity Ariel, Functional Strength, Group Therapy, Gait, Safety, Therapeutic Exercise, Transfers Treatment Duration: Sep 29, 2018 Frequency: At least 5 of 7 days/Wk (IRF) Estimated Hrs Per Day: 1.5 hours per day Patient and/or Family Agrees t: Yes Time/GCodes Time In: 1255 Time Out: 1325 Total Billed Treatment Time: 30 Total Billed Treatment 1,FA13m,EX17m G Codes Necessary: CHI Merlos OXIDE FURNACE TENDER Sep 14, 2018 13:29
[2018-09-14 15:56] LABS: BILIRUBIN,URINE NEGATIVE (NEGATIVE); CLARITY,URINE SLIGHTLY CLOUDY; COLOR,URINE AMBER; GLUCOSE, URINE (UA) NEGATIVE (NEGATIVE); KETONES,URINE NEGATIVE (NEGATIVE); LEUKOCYTE ESTERASE ,URINE 1+ (NEGATIVE); NITRITE,URINE NEGATIVE (NEGATIVE); PH,URINE 6 (5-9); PROTEIN,URINE 1+ (NEGATIVE); UROBILINOGEN,URINE NORMAL (NORMAL)
[2018-09-14 16:18] LABS: BACTERIA,URINE NEGATIVE /HPF; RBC,URINE RARE /HPF; WBC,URINE 0-2 /HPF
[2018-09-14] MEDS: TAMSULOSIN 0.4 MG (FLOMAX) CAP PO SCH (16:37)
[2018-09-14] MEDS: FINASTERIDE (PROSCAR) 5 MG TAB PO SCH (16:37)
--- NOTE | 2018-09-14 16:53 | Diagnostic Imaging Report ---
INDICATION: Cough and pain. PA and lateral views were obtained. FINDINGS: The heart size, mediastinal configuration, and pulmonary vascularity are within normal limits. There is no pleural effusion, pneumothorax, or pneumonia. The osseous structures are unremarkable. IMPRESSION: No acute cardiopulmonary abnormality. Dictated by: Dictated on workstation # [id number]
[2018-09-14 18:15] VITALS: BP 119/77
--- NOTE | 2018-09-14 23:45 | NUR ---
Robitussin prn given for c/o cough. dry, non productive cough noted. Patient stated, "Need something to help sleep" melatonin given. denies needs, rates pain 5/10 but states, 'don't need' pain med. dressing changed at this time. moderate non malodorous serous drainage, well approximated. slight erythema. cont to monitor.
--- NOTE | 2018-09-15 00:30 | NUR ---
MEDICATION EFFECTIVE. PATIENT RESTING, EYES CLOSED. RR EVEN AND UNLABORED. CONT TO MONITOR.
[2018-09-15 05:57] VITALS: BP 126/80
[2018-09-15] MEDS: HYDROcodone/APAP 10 MG/325 MG (LORTAB) TAB PO PRN ×3 (05:59→16:33)
[2018-09-15 06:00] LABS: BASOPHILS % (AUTO) 0 % (0-10); EOSINOPHILS # (AUTO) 0.2 10^3/uL (0.0-0.3); EOSINOPHILS % (AUTO) 2 % (0-10); HEMATOCRIT 31 % (40-54); HEMOGLOBIN 9.7 G/DL (13.3-17.7); LYMPHOCYTES # (AUTO) 2.1 X 10^3 (1.0-4.0); LYMPHOCYTES % (AUTO) 16 % (12-44); MEAN CORPUSCULAR HEMOGLOBIN 28 PG (25-34); MEAN CORPUSCULAR HGB CONC 32 G/DL (32-36); MEAN CORPUSCULAR VOLUME 89 FL (80-99); MEAN PLATELET VOLUME 8.8 FL (7.4-10.4); MONOCYTES # (AUTO) 1.5 X 10^3 (0.0-1.0); MONOCYTES % (AUTO) 11 % (0-12); NEUTROPHILS # (AUTO) 9.1 X 10^3 (1.8-7.8); NEUTROPHILS % (AUTO) 71 % (42-75); PLATELET COUNT 426 10^3/uL (130-400); RED CELL DISTRIBUTION WIDTH 16.4 % (10.0-14.5); WHITE BLOOD COUNT 12.9 10^3/uL (4.3-11.0)
[2018-09-15] MEDS: inSUlin ASPART (NovoLOG) 1 UNIT/0.01 ML (CHARGE PER UNIT) SC SCH ×4 (06:02→21:16)
--- NOTE | 2018-09-15 06:13 | NUR ---
patient attempted to void at bedside this am.. states he is unable to void but this is common in the mornings. encouraged patient to ambulate to br to facilitate urine flow. patient refused stated, "I don't want to . I will wait until i absolutely have to go. " lortab 2/ for c/o pain 8/10 in right hip. incision dressing changed. erythema and trace edema noted to surrounding tissue. minimal serous, non malodorous drainage. well approximated incision with minoo intact. patient performed I.S. coughing with exercise. ice pack applied. patient to bed left side lying. patient with diarrhea x 1 episode last night. states he is passing gas and had formed bm a few days ago. cont to monitor patient.
[2018-09-15 06:17] LABS: ALANINE AMINOTRANSFERASE 34 U/L (0-55); ALBUMIN 2.8 GM/DL (3.2-4.5); ALKALINE PHOSPHATASE 84 U/L (40-136); BILIRUBIN,TOTAL 0.4 MG/DL (0.1-1.0); BUN/CREATININE RATIO 16; CALCIUM 8.1 MG/DL (8.5-10.1); CARBON DIOXIDE 26 MMOL/L (21-32); CHLORIDE 103 MMOL/L (98-107); CREATININE SERUM 0.73 MG/DL (0.60-1.30); GFR ESTIMATED > 60; GLUCOSE 133 MG/DL (70-105); POTASSIUM 3.6 MMOL/L (3.6-5.0); SODIUM 137 MMOL/L (135-145); TOTAL PROTEIN 5.7 GM/DL (6.4-8.2)
--- NOTE | 2018-09-15 06:47 | NUR ---
patient to br contact natalia gait belt, fww. patient voided large amount and had diarrhea episode. patient maneuvered clothing and hygiene independently. to chair at this time. cont to monitor.
[2018-09-15] MEDS: metFORMIN XR 500 MG (GLUCOPHAGE XR) TAB PO SCH ×2 (06:58→16:33)
[2018-09-15] MEDS: DOXYCYCLINE 100 MG (VIBRAMYCIN) TABLET PO SCH ×2 (06:59→16:32)
[2018-09-15] MEDS: KCL 10 MEQ TAB (MICRO K) PO SCH ×3 (06:59→16:32)
--- NOTE | 2018-09-15 07:02 | NUR ---
REQUEST TO PHARMACY TO SCHEDULE MULTIVITAMIN @0900, 2 HOURS AFTER DOXYCYCLINE RAFI ADMIN.
--- NOTE | 2018-09-15 08:19 | Progress Note (SOAP) ---
Subjective Date Seen by a Provider: Sep 15, 2018 Time Seen by a Provider: 08:14 Subjective/Events-last exam Patient is POD #9, s/p T2-Pelvis revision fusion. Intraoperative cultures positive for staph epi Patient has persistent serosang drainage from wound Nursing contacted our service due to persistent drainage and increase fatigue Review of Systems General: Fatigue Pulmonary: Cough Cardiovascular: No: Chest Pain Gastrointestinal: No: Nausea Musculoskeletal: back pain, leg pain Neurological: No: Weakness, Numbness Objective Exam Vital Signs Date Time Temp Pulse Resp B/P (MAP) Pulse Ox O2 Delivery O2 Flow Rate FiO2 09/15/18 05:57 97.2 108 22 126/80 (95) 97 Room Air 09/14/18 23:58 Room Air 09/14/18 21:20 Room Air 09/14/18 18:15 97.8 96 20 119/77 (91) 96 Room Air 09/14/18 09:00 Room Air 09/14/18 08:24 106 112/73 (86) I & O 09/15/18 07:00 Intake Total 2400 ml Output Total 1500 ml Balance 900 ml Capillary Refill : General Appearance: No Apparent Distress Respiratory: No Respiratory Distress Extremity: Normal Capillary Refill, Pedal Edema Neurologic/Psychiatric: Alert, Oriented x3, No Motor/Sensory Deficits, Normal Mood/Affect, statue maker II-XII Norm as Tested, Other (Positive right straight leg raise , 5/5 bilateral dorsiflexion and plantar flexion) Skin: Other (Dressing with moderate serosanguineous drainage. No drainage could be expressed from wound. Skin edges intact. No fluctuance, induration, or erythema) Results Lab Laboratory Tests 09/14/18 10:40: White Blood Count 13.4H, Red Blood Count 3.42L, Hemoglobin 9.6L, Hematocrit 30L , Mean Corpuscular Volume 89, Mean Corpuscular Hemoglobin 28, Mean Corpuscular Hemoglobin Concent 32, Red Cell Distribution Width 15.9H, Platelet Count 381, Mean Platelet Volume 8.7, Neutrophils (%) (Auto) 70, Lymphocytes (%) (Auto) 17, Monocytes (%) (Auto) 11, Eosinophils (%) (Auto) 2, Basophils (%) (Auto) 0, Neutrophils # (Auto) 9.4H, Lymphocytes # (Auto) 2.3, Monocytes # (Auto) 1.5H, Eosinophils # (Auto) 0.2, Basophils # (Auto) 0.0, Erythrocyte Sedimentation Rate 115H, Sodium Level 138, Potassium Level 3.2L, Chloride Level 102, Carbon Dioxide Level 26, Anion Gap 10, Blood Urea Nitrogen 12, Creatinine 0.81, Estimat Glomerular Filtration Rate > 60, BUN/Creatinine Ratio 15, Glucose Level 125H, Calcium Level 8.0L, Corrected Calcium 9.0, Total Bilirubin 0.3, Aspartate Amino Transf (AST/SGOT) 78H, Alanine Aminotransferase (ALT/SGPT) 40, Alkaline Phosphatase 83, Total Protein 5.7L, Albumin 2.8L 09/14/18 11:05: Glucometer 136H 09/14/18 15:35: Urine Color AMBERH, Urine Clarity SLIGHTLY CLOUDY, Urine pH 6, Urine Specific [place] 1.020, Urine Protein 1+H, Urine Glucose (UA) NEGATIVE, Urine Ketones NEGATIVE, Urine Nitrite NEGATIVE, Urine Bilirubin NEGATIVE, Urine Urobilinogen NORMAL, Urine Leukocyte Esterase 1+H, Urine RBC (Auto) 1+H, Urine RBC RARE, Urine WBC 0-2, Urine Crystals NONE, Urine Bacteria NEGATIVE, Urine Casts NONE, Urine Mucus NEGATIVE, Urine Culture Indicated NO 09/14/18 16:32: Glucometer 136H 09/14/18 20:56: Glucometer 162H 09/15/18 05:38: White Blood Count 12.9H, Red Blood Count 3.45L, Hemoglobin 9.7L, Hematocrit 31L , Mean Corpuscular Volume 89, Mean Corpuscular Hemoglobin 28, Mean Corpuscular Hemoglobin Concent 32, Red Cell Distribution Width 16.4H, Platelet Count 426H, Mean Platelet Volume 8.8, Neutrophils (%) (Auto) 71, Lymphocytes (%) (Auto) 16, Monocytes (%) (Auto) 11, Eosinophils (%) (Auto) 2, Basophils (%) (Auto) 0, Neutrophils # (Auto) 9.1H, Lymphocytes # (Auto) 2.1, Monocytes # (Auto) 1.5H, Eosinophils # (Auto) 0.2, Basophils # (Auto) 0.0, Sodium Level 137, Potassium Level 3.6, Chloride Level 103, Carbon Dioxide Level 26, Anion Gap 8, Blood Urea Nitrogen 12, Creatinine 0.73, Estimat Glomerular Filtration Rate > 60, BUN/ Creatinine Ratio 16, Glucose Level 133H, Calcium Level 8.1L, Corrected Calcium 9.1, Total Bilirubin 0.4, Aspartate Amino Transf (AST/SGOT) 52H, Alanine Aminotransferase (ALT/SGPT) 34, Alkaline Phosphatase 84, Total Protein 5.7L, Albumin 2.8L 09/15/18 06:02: Glucometer 165H Microbiology 09/14/18 Influenza Types A,B Antigen (PALMER) - Final, Complete Assessment/Plan Assessment/Plan Assess & Plan/Chief Complaint S/P T2-Pelvis revision fusion Hardware failure Debilitation We will obtain scoliosis films at this time to evaluate hardware Patient has been changed to doxycycline Recommend prn dressing changes, for any drainage. Clinical Quality Measures DVT/VTE Risk/Contraindication: Risk Factor Score Per Nursin RFS Level Per Nursing on Admit: 4+=Very High TAO SANCHEZ Sep 15, 2018 08:19
--- NOTE | 2018-09-15 09:03 | Physical Therapy Daily Note ---
PT Daily Note-Current Subjective Pt. stats he is really not much better today, "maybe a little", rates pain in right hip and down through right buttock at 7/10 Pain Numeric Pain Scale: 7 Location: Right Location Body Site: Hip (buttock and down back of right leg) Pain Description: Burning Appearance appears flush faced, sweaty Mental Status Patient Orientation: Normal For Age Attachments: Other-See Comments (ck brace) Transfers Therapy Code Descriptions/Definitions Functional [place] Measure: 0=Not Assessed/NA 4=Minimal Assistance 1=Total Assistance 5=Supervision or Setup 2=Maximal Assistance 6=Modified [place] 3=Moderate Assistance 7=Complete [place] Therapy Quality Codes: 6 Independent with activity with or without an assistive device 5 Patient requires set up or clean up by helper. Patient completes activity by themselves 4 Supervision or touching assist (CGA). [place] provide cues , steadying assist 3 The helper provides less than half the effort to complete the activity 2 The helper provides more than half the effort to complete the activity 1 Dependent. The helper does all the effort to complete an activity 7 Patient refused to complete or attempt activity 9 The patient did not perform the activity before the current illness or injury 88 Not attempted due to Medical conditions or safety concerns Transfers (B, C, W/C) (FIM): 4 Scootin Rollin Supine to/from Sit: 5 Sit to/from Stand: 5 Bed to/from Chair: 4 Weight Bearing Right Lower Extremity: Right Weight Bearing/Tolerated Left Lower Extremity: Left Weight Bearing/Tolerated Gait Training Does the Patient Walk?: Yes Gait (FIM): 1 Distance (FIM): 1=up to 49 ft (10ft, 5ft) Gait Level of Assist: 4 Gait Persons Needed: 1 Gait Assistive Device: FWW pt. c/o increased pain down RLE with wt bearing and R leg melts with weight bearing frequently and needs to stop to secure himself Wheelchair Training Does the Pt Use a Wheelchair?: Yes Wheelchair (FIM): 5 Wheelchair Distance: 3=150 ft Wheelchair Level of Assist: 4 (brakes) Type of Wheelchair: Manual slow Exercises Seated Therapy Exercises: Ankle pumps, Sit to stand, Long arc quads, Hip flexion, Hip abd/add Seated Reps: 12 NuStep Minutes: 12 NuStep Workload: 1 Treatments pt. camila hunt indep Assessment Current Status: Fair Progress pain c/o and instability because of pain have greatly reduced pts funct mob and indep. Richard Alexander here to assess pt. Ordered hardware/ full back XR as well as wound vacc PT Short Term Goals Short Term Goals Time Frame: Sep 15, 2018 Transfers (B,C,W/C) (FIM): 4 Gait (FIM): 4 Distance (FIM): 3=150 ft Gait Distance Comment: 150' Gait Level of Assist: 4 Gait Assistive Device: FWW PT Real Estate Subagent Goals Real Estate Subagent Goals PT Jail Goals Time Frame: Sep 29, 2018 Transfers (B,C,W/C) (FIM): 5 Sit to Lying (QC): 4 Lying-Sitting on Side/Bed(QC): 4 Sit to Stand (QC): 4 Rollin Roll Left to Right (QC): 4 Chair/Uhg-cn-Tnsyi Xfer(QC): 4 Car Transfer (QC): 4 Does the Patient Walk: Yes Gait (FIM): 5 Gait distance (FIM): 3=150 ft Distance: 300' Walk 10 feet (QC): 4 Walk 10ft-Uneven Surface(QC): 4 Walk 50ft with 2 Turns (QC): 4 Walk 150 ft (QC): 4 Gait Level of Assist: 5 Gait Assistive Device: FWW Stairs (FIM): 2 # of Steps: 4 1 Step (curb) (QC): 4 4 Steps (QC): 4 Stairs Level Of Assist: 5 PT Plan Treatment/Plan Treatment Plan: Continue Plan of Care Treatment Plan: Bed Mobility, Education, Functional Activity Ariel, Functional Strength, Group Therapy, Gait, Safety, Therapeutic Exercise, Transfers Treatment Duration: Sep 29, 2018 Frequency: At least 5 of 7 days/Wk (IRF) Estimated Hrs Per Day: 1.5 hours per day Patient and/or Family Agrees t: Yes Safety Risks/Education Patient Education: Gait Training, Transfer Techniques, Correct Positioning, W/ C Management, Disease Process, Safety Issues Teaching Recipient: Patient Teaching Methods: Demonstration, Discussion Response to Teaching: Verbalize Understanding, Return Demonstration, Reinforcement Needed Time/GCodes Time In: 800 Time Out: 900 Total Billed Treatment Time: 60 Total Billed Treatment 1,FA25m,GT15m,EX20m G Codes Necessary: CHI Merlos PTA Sep 15, 2018 09:03
[2018-09-15] MEDS: MULTIVIT W/MINERALS TAB (THERAGRAN M) PO SCH (09:06)
[2018-09-15] MEDS: CYCLOBENZAPRINE 10 MG (FLEXERIL) TAB PO SCH ×3 (09:06→21:18)
[2018-09-15] MEDS: GABAPENTIN 600 MG (NEURONTIN) TAB PO SCH ×3 (09:06→21:18)
[2018-09-15] MEDS: meTOproloL SUCCINATE 50 MG (TOPROL XL) TAB PO SCH (09:06)
[2018-09-15] MEDS ORDERED: FUROSEMIDE 40 MG (LASIX) TAB PO NR (10:15)
--- NOTE | 2018-09-15 10:22 | PM&R Progress Note ---
Subjective HPI/CC On Admission Date Seen by Provider: Sep 15, 2018 Time Seen by Provider: 09:50 CC: Severe debility following an extensive C3-6 Laminectomy and C3-T2 PSF with instrumentation uncomplicated by Dr Garcia POD # 3 HPI: This is a 63-year-old white male who presented to inpatient rehabilitation due to severe debility following extensive spine surgery with hardware placement. He required ICU monitoring due to the profound impact the procedure had placing him at risk for acute blood loss, respiratory failure and arrhythmia. He did well during ICU stay did have acute renal failure creatinine 1.6 but that resolved with aggressive IV fluids. He is noncompliant with obstructive sleep apnea treatment with CPAP and he was maintain on oxygen during ICU stay. Pain was controlled and he minimized the amount of pain medication he took which is been very helpful in a more rapid recovery but still needed aggressive physical therapy and management in the inpatient rehabilitation unit. Currently patient is doing well pain is controlled and I have reordered metformin home medication due to resolution of acute renal failure. Subjective/Events-last exam Feeling better Dry cough improved and CXR negative UA normal. Pain is still an issue and Dr. Radha Alexander saw him and evaluated the post op site to be good and as expected. Was hoping for discharge but not until pain is controlled. Lasix one dose will be given a long with wide pio wraps Review of Systems General: Fatigue Musculoskeletal: back pain Objective Exam Vital Signs Vital Signs Date Time Temp Pulse Resp B/P (MAP) Pulse Ox O2 Delivery O2 Flow Rate FiO2 09/15/18 09:00 Room Air 09/15/18 05:57 97.2 108 22 126/80 (95) 97 Capillary Refill : General Appearance: No Apparent Distress, WD/WN, Chronically ill, Obese, Other (improved) HEENT: PERRL/EOMI, Normal ENT Inspection, Pharynx Normal, Moist Mucous Membranes Neck: Full Range of Motion, Normal Inspection, Non Tender, Supple Respiratory: Chest Non Tender, Lungs Clear, Normal Breath Sounds, No Accessory Muscle Use, No Respiratory Distress Cardiovascular: Regular Rate, Rhythm, No Edema, No Gallop, No JVD, No Murmur Gastrointestinal: Normal Bowel Sounds, No Organomegaly, No Pulsatile Mass, Non Tender, Soft Back: Decreased Range of Motion, Muscle Spasm, Vertebral Tenderness Extremity: Normal Capillary Refill, Pedal Edema Neurologic/Psychiatric: Alert, Oriented x3, No Motor/Sensory Deficits, Normal Mood/Affect, barrel plater II-XII Norm as Tested, Other (Positive right straight leg raise , 5/5 bilateral dorsiflexion and plantar flexion) Skin: Other (Dressing with moderate serosanguineous drainage. No drainage could be expressed from wound. Skin edges intact. No fluctuance, induration, or erythema) Lymphatic: No Adenopathy Results/Procedures Lab Laboratory Tests 09/15/18 05:38 Patient resulted labs reviewed. Assessment/Plan Assessment and Plan Assess & Plan/Chief Complaint Assessment: Status post extensive spine surgery with hardware placement with subsequent severe debility requiring inpatient rehabilitation Hypertension Status post acute renal failure Diabetes mellitus Obstructive sleep apnea noncompliant with sleep apnea treatment Obesity Sore throat ordered Chloraseptic spray now improved Urinary retention sensation? doing better now Hypokalemia supplementing Leukocytosis with increased back pain and overall feels badly- check labs CXR UA but all normal Edema starting one dose of Lasix Plan: Pain control Intensive therapies Monitor bowel and bladder function Replaced potassium Checked labs and CXR and UA and all normal (1) Fixation hardware in spine (2) History of BPH (3) KIMANI (obstructive sleep apnea) (4) Obesity (5) Acute renal failure Assessment & Plan: Resolved (6) Diabetes mellitus (7) Hypokalemia (8) Urinary retention (9) Left knee pain (10) Sore throat (11) Anemia (12) Leukocytosis Clinical Quality Measures DVT/VTE Risk/Contraindication: Risk Factor Score Per Nursin RFS Level Per Nursing on Admit: 4+=Very High MODESTO SOLIS DO Sep 15, 2018 10:22
--- NOTE | 2018-09-15 13:06 | Occupational Ther Daily Note ---
OT Current Status-Daily Note Subjective Pt in recliner , alert, oriented, cooperative, c/o pain in Rt hip 8/10 prior shower. Pain Numeric Pain Scale: 8 Location: Right Location Body Site: Hip Pain Description: Stabbing, Throbbing, Sharp Mental Status/Objective Patient Orientation: Person, Place, Time Therapy Code Descriptions/Definitions Functional [place] Measure: 0=Not Assessed/NA 4=Minimal Assistance 1=Total Assistance 5=Supervision or Setup 2=Maximal Assistance 6=Modified [place] 3=Moderate Assistance 7=Complete [place] ADL-Treatment Patient Independent in func transfers & toileting activity. Pt c/o pain in Rt Hip 8/10 on VAS. Pt SBA in taking hot water shower today , with with several rest period. Pt fatigue soon. Thae back surgical wound dressing was been covered with plastic paper to prevent it to get soaked during shower. After hot water shower pt feel lot better. Pt ambulate without much pain 09/12 , 80 feet with FWW with one rest period. Pt dress UB Independently & LB Garments with min A as he was very tired after shower. MS in BUE 4+/5 grossly graded.Endurance fair+. Therapy Code Descriptions/Definitions Functional [place] Measure: 0=Not Assessed/NA 4=Minimal Assistance 1=Total Assistance 5=Supervision or Setup 2=Maximal Assistance 6=Modified [place] 3=Moderate Assistance 7=Complete [place] Therapy Quality Codes: 6 Independent with activity with or without an assistive device 5 Patient requires set up or clean up by helper. Patient completes activity by themselves 4 Supervision or touching assist (CGA). [place] provide cues , steadying assist 3 The helper provides less than half the effort to complete the activity 2 The helper provides more than half the effort to complete the activity 1 Dependent. The helper does all the effort to complete an activity 7 Patient refused to complete or attempt activity 9 The patient did not perform the activity before the current illness or injury 88 Not attempted due to Medical conditions or safety concerns Eating (FIM): 7 Eating (QC): 6 Grooming (FIM): 7 Oral Hygiene (QC): 6 Bathing (FIM): 5 Bathing Location: L Arm, R Arm, L Upper Leg, R Upper Leg, L Lower Leg ( including foot), R Lower Leg (including foot), Chest, Abdomen, Buttocks, Perineal Area Shower/Bathe Self (QC): 5 Upper Body (FIM): 7 Upper Body Dressing (QC): 6 Lower Body Dressing (FIM): 4 Lower Body Dressing (QC): 4 On/Off Footwear (QC): 5 Toileting (FIM): 7 Toileting Hygiene (QC): 6 Transfers (B, C, W/C) (FIM): 6 Toilet/Commode Transfer (FIM): 6 Toilet Transfer (QC): 6 Tub Transfer(FIM): 0 Shower Transfer(FIM): 6 Education OT Patient Education: Correct positioning, Safety issues Teaching Recipient: Patient Teaching Methods: Demonstration Response to Teaching: Verbalize Understanding OT Short Term Goals Short Term Goals Time Frame: Sep 22, 2018 Eating(FIM): 7 Grooming(FIM): 7 Bathing(FIM): 5 Bathing Location: L Arm, R Arm, L Upper Leg, R Upper Leg, L Lower Leg ( including foot), R Lower Leg (including foot), Chest, Abdomen, Buttocks, Perineal Area Upper Body Dressing(FIM): 6 Lower Body Dressing(FIM): 5 Toileting(FIM): 7 Transfers (B,C,W/C) (FIM): 4 Toilet/Commode Transfer(FIM): 7 Tub Transfer(FIM): 0 Shower Transfer(FIM): 7 Additional Short Term Goals: 1-Demonstrate ADL Tasks, 2-Verbalize Understanding , 3-ImproveStrength/Ariel 1=Demonstrate adherence to instructed precautions during ADL tasks. 2=Patient will verbalize/demonstrate understanding of assistive devices/ modifications for ADL. 3=Patient will improve strength/tolerance for activity to enable patient to perform ADL's. OT Penitentiary Goals Penitentiary Goals Time Frame: Oct 06, 2018 Eating (FIM): 7 Eating (QC): 6 Groomin Oral Hygiene (QC): 6 Bathing(FIM): 7 Bathing Location: L Arm, R Arm, L Upper Leg, R Upper Leg, L Lower Leg ( including foot), R Lower Leg (including foot), Chest, Abdomen, Buttocks, Perineal Area Shower/Bathe Self (QC): 6 Upper Body Dressing(FIM): 7 Upper Body Dressing (QC): 6 Lower Body Dressing(FIM): 7 Lower Body Dressing (QC): 6 On/Off Footwear (QC): 6 Toileting(FIM): 7 Toileting Hygiene (QC): 6 Transfers (B,C,W/C) (FIM): 7 Toilet/Commode Transfer(FIM): 7 Toilet/Commode Transfer (QC): 6 Tub Transfer(FIM): 7 Shower Transfer(FIM): 7 Additional Goals: 1-Demonstrate ADL Tasks, 2-Verbalize Understanding, 3- ImproveStrength/Ariel 1=Demonstrate adherence to instructed precautions during ADL tasks. 2=Patient will verbalize/demonstrate understanding of assistive devices/ modifications for ADL. 3=Patient will improve strength/tolerance for activity to enable patient to perform ADL's. OT Education/Plan Problem List/Assessment Assessment: Decreased Activ Tolerance, Decreased Safety Aware, Decreased UE Strength, Dependent Transfers, Impaired Bed Mobility, Impaired Funct Balance, Impaired Self-Care Skills Discharge Recommendations Plan/Recommendations: Continue POC Therapy D/C Recommendations: Home w/ Family Support Equpiment Recommendations-D/C: Extended Bath Bench, Extended Shower Sprayer, Manager Human Capital, Hip Kit Treatment Plan/Plan of Care Treatment,Training & Education: Yes Patient would benefit from OT for education, treatment and training to promote independence in ADL's, mobility, safety and/or upper extremity function for ADL' s. Plan of Care: ADL Retraining, Caregiver Training, Functional Mobility, Group Exercise/Act as Ind, UE Funct Exercise/Act, UE Neuromus Re-Ed/Coord Treatment Duration: Oct 06, 2018 Frequency: 5 times per week Estimated Hrs Per Day: 1.5 hours per day Agreement: Yes Rehab Potential: Good Time/GCodes Start Time: 09:00 Stop Time: 10:30 Total Time Billed (hr/min): 90 Billed Treatment Time 1, ADL 60 min, FA, 14 min, Ex 16 min. Total 90 min. DYLLAN GANT OT Sep 15, 2018 13:05
--- NOTE | 2018-09-15 14:00 | Therapy Group Daily Note ---
Therapy Daily Group Note Patient Education Topic Other List Below (benefits of exercise) Exercises LE Seated Exercise, UE Exercise Session Ratio (pt:therapist): 3:1 Goal of Session: Other (list) (understanding the risks of being sedentary, as well as benefits of exercise at all levels) Goal Met for this Session: Yes Pt Benefit of Group: Contributions to Others, F/U Use of Strategies @Home, Increased Functional Strength, Improved Cognition, Recognition of Peers, Socialization Other/Notes Pt. participated in group PT session this date. Pt. came and went via w/c. Pts. introduced themselves and shared their "bucket list" items fulfilled and those still on the list. Pts. were given written illustrated exercise cards and each demonstrated 2 exercises to the rest of the group, U&L extremity seated exercises. Pts then participated in establishing 5 words from 5 different categories for a memory exercise. Pts. will be challenged to remember these items on Thursday . Strategies for memory were discussed and a fun pnuemonic was established. "A dog named Iva ate blue hot dogs in [place]." (dog ,iva, hotdogs,blue, [place]. Pt. returned to room via w/c and required min assist to get to recliner. Call johnson at hand Start Time: 13:15 Stop Time: 13:45 Total Billed Treatment Time: 30 Total Billed Treatment 1,GRP [facility] CH[facility] LIFE SPECIALIST Sep 15, 2018 14:00
--- NOTE | 2018-09-15 14:17 | Diagnostic Imaging Report ---
INDICATION: Hardware check. TIME OF EXAM: 01:19 p.m. FINDINGS: Extensive spinal instrumentation is seen extending throughout the entire spine from proximal C3 through the sacrum. No definite hardware fracture or loosening is seen. Vertebral body heights are maintained. There also appears to be anterior cervical discectomy and fusion in lower cervical spine. There is anterior lumbar interbody fusion in lower lumbar spine. IMPRESSION: Extensive cervical, thoracic and lumbar hardware fixation. No definite complicating features are seen. Dictated by: Dictated on workstation # [id number]
[2018-09-15] MEDS: TAMSULOSIN 0.4 MG (FLOMAX) CAP PO SCH (16:32)
[2018-09-15] MEDS: guaiFENesin/DM (ROBITUSSIN DM) 10 ML UDC PO PRN (16:33)
[2018-09-15] MEDS: FINASTERIDE (PROSCAR) 5 MG TAB PO SCH (16:33)
[2018-09-15 18:00] VITALS: BP 106/69
--- NOTE | 2018-09-15 19:35 | NUR ---
PATIENT UP IN CHAIR. STATES FEELING MUCH BETTER. I.S . PERFORMED WITH CONSIDERABLY LESS DIFFICULTY AND COUGH COMPARED TO LAST NIGHT. AT BEDSIDE. DENIES ANY QUESTIONS, NEEDS OR CONCERNS AT THIS TIME. ICE PACK APPLIED TO RIGHT HIP. CONTINUE TO MONITOR.
[2018-09-15] MEDS: ACETAMINOPHEN 325 MG TABLET PO PRN (21:19)
[2018-09-16] MEDS: inSUlin ASPART (NovoLOG) 1 UNIT/0.01 ML (CHARGE PER UNIT) SC SCH ×4 (06:25→20:59)
[2018-09-16] MEDS: KCL 10 MEQ TAB (MICRO K) PO SCH ×3 (06:26→18:21)
[2018-09-16] MEDS: DOXYCYCLINE 100 MG (VIBRAMYCIN) TABLET PO SCH ×2 (06:26→18:21)
[2018-09-16] MEDS: metFORMIN XR 500 MG (GLUCOPHAGE XR) TAB PO SCH ×2 (06:26→18:21)
[2018-09-16 06:37] VITALS: BP 126/82
--- NOTE | 2018-09-16 08:43 | Occupational Ther Daily Note ---
OT Current Status-Daily Note Subjective Pt in recliner, alert, oriented, c/o pain in Rt. Hip 8/10 on VAS. back 3/10 on VAS. Pain Numeric Pain Scale: 8 Location: Right Location Body Site: Hip Pain Description: Throbbing, Sharp Mental Status/Objective Patient Orientation: Person, Place, Time Therapy Code Descriptions/Definitions Functional [place] Measure: 0=Not Assessed/NA 4=Minimal Assistance 1=Total Assistance 5=Supervision or Setup 2=Maximal Assistance 6=Modified [place] 3=Moderate Assistance 7=Complete [place] Attachments: Polar Pack ADL-Treatment Pt participated in self care tasks , func activities & strengthening ex to BUE. Pt wipes his face, hairs, around the neck, , upper legs ,chest , Pt supine to sit in bed & sit to stand at EOB with FWW to the recliner. PT C/O severe pain in Rt hip 8/10 on VAS & 3/10on VAS in the middle back . Pt been advised not to push,pull, lift any heavy stuff more than 5 pounds . Provided Polar Ice pack on Right Hip for Pain Management. Pt participated 20 min on Arm-Bike to strengthen BUE to participate in all self care tasks & to push up from recliner to stand with FWW. Therapy Code Descriptions/Definitions Functional [place] Measure: 0=Not Assessed/NA 4=Minimal Assistance 1=Total Assistance 5=Supervision or Setup 2=Maximal Assistance 6=Modified [place] 3=Moderate Assistance 7=Complete [place] Therapy Quality Codes: 6 Independent with activity with or without an assistive device 5 Patient requires set up or clean up by helper. Patient completes activity by themselves 4 Supervision or touching assist (CGA). [place] provide cues , steadying assist 3 The helper provides less than half the effort to complete the activity 2 The helper provides more than half the effort to complete the activity 1 Dependent. The helper does all the effort to complete an activity 7 Patient refused to complete or attempt activity 9 The patient did not perform the activity before the current illness or injury 88 Not attempted due to Medical conditions or safety concerns Eating (FIM): 7 Eating (QC): 6 Grooming (FIM): 6 Oral Hygiene (QC): 5 Bathing (FIM): 4 (Need min A in wiping lower legs.) Bathing Location: L Arm, R Arm, L Upper Leg, R Upper Leg, Chest, Abdomen Shower/Bathe Self (QC): 0 Upper Body (FIM): 7 Upper Body Dressing (QC): 6 Lower Body Dressing (FIM): 4 Lower Body Dressing (QC): 4 On/Off Footwear (QC): 5 Toileting (FIM): 7 Toileting Hygiene (QC): 6 Transfers (B, C, W/C) (FIM): 6 Toilet/Commode Transfer (FIM): 6 Toilet Transfer (QC): 5 Tub Transfer(FIM): 0 Shower Transfer(FIM): 0 Education OT Patient Education: Correct positioning, Safety issues Teaching Recipient: Patient Teaching Methods: Demonstration Response to Teaching: Verbalize Understanding OT Short Term Goals Short Term Goals Time Frame: Sep 22, 2018 Eating(FIM): 7 Grooming(FIM): 7 Bathing(FIM): 5 Bathing Location: L Arm, R Arm, L Upper Leg, R Upper Leg, L Lower Leg ( including foot), R Lower Leg (including foot), Chest, Abdomen, Buttocks, Perineal Area Upper Body Dressing(FIM): 6 Lower Body Dressing(FIM): 5 Toileting(FIM): 7 Transfers (B,C,W/C) (FIM): 4 Toilet/Commode Transfer(FIM): 7 Tub Transfer(FIM): 0 Shower Transfer(FIM): 7 Additional Short Term Goals: 1-Demonstrate ADL Tasks, 2-Verbalize Understanding , 3-ImproveStrength/Ariel 1=Demonstrate adherence to instructed precautions during ADL tasks. 2=Patient will verbalize/demonstrate understanding of assistive devices/ modifications for ADL. 3=Patient will improve strength/tolerance for activity to enable patient to perform ADL's. OT Retirement Goals Retirement Goals Time Frame: Oct 06, 2018 Eating (FIM): 7 Eating (QC): 6 Groomin Oral Hygiene (QC): 6 Bathing(FIM): 7 Bathing Location: L Arm, R Arm, L Upper Leg, R Upper Leg, L Lower Leg ( including foot), R Lower Leg (including foot), Chest, Abdomen, Buttocks, Perineal Area Shower/Bathe Self (QC): 6 Upper Body Dressing(FIM): 7 Upper Body Dressing (QC): 6 Lower Body Dressing(FIM): 7 Lower Body Dressing (QC): 6 On/Off Footwear (QC): 6 Toileting(FIM): 7 Toileting Hygiene (QC): 6 Transfers (B,C,W/C) (FIM): 7 Toilet/Commode Transfer(FIM): 7 Toilet/Commode Transfer (QC): 6 Tub Transfer(FIM): 7 Shower Transfer(FIM): 7 Additional Goals: 1-Demonstrate ADL Tasks, 2-Verbalize Understanding, 3- ImproveStrength/Ariel 1=Demonstrate adherence to instructed precautions during ADL tasks. 2=Patient will verbalize/demonstrate understanding of assistive devices/ modifications for ADL. 3=Patient will improve strength/tolerance for activity to enable patient to perform ADL's. OT Education/Plan Problem List/Assessment Assessment: No Skilled OT Needs ID'd, Decreased Safety Aware, Decreased UE Strength, Dependent Transfers, Impaired Bed Mobility, Impaired Funct Balance, Impaired Self-Care Skills Discharge Recommendations Plan/Recommendations: Continue POC Therapy D/C Recommendations: Home w/ Family Support Equpiment Recommendations-D/C: Cafe Site Attendant, Hip Kit Patient/Family Goals To return home with spouse Independently with no pain. & with AD. Treatment Plan/Plan of Care Treatment,Training & Education: Yes Patient would benefit from OT for education, treatment and training to promote independence in ADL's, mobility, safety and/or upper extremity function for ADL' s. Plan of Care: ADL Retraining, Caregiver Training, Functional Mobility, Group Exercise/Act as Ind, UE Funct Exercise/Act, UE Neuromus Re-Ed/Coord Treatment Duration: Oct 06, 2018 Frequency: 5 times per week Estimated Hrs Per Day: 1.5 hours per day Agreement: Yes Rehab Potential: Good Time/GCodes Start Time: 08:00 Stop Time: 09:30 Total Time Billed (hr/min): 90 Billed Treatment Time 1, ADL 60 min, FA10 min, Ex 20 min. Total 90 minutes. DYLLAN GANT OT Sep 16, 2018 08:43
[2018-09-16] MEDS: CYCLOBENZAPRINE 10 MG (FLEXERIL) TAB PO SCH ×3 (09:00→20:55)
[2018-09-16] MEDS: GABAPENTIN 600 MG (NEURONTIN) TAB PO SCH ×3 (09:00→20:55)
[2018-09-16] MEDS: MULTIVIT W/MINERALS TAB (THERAGRAN M) PO SCH (09:00)
[2018-09-16] MEDS: meTOproloL SUCCINATE 50 MG (TOPROL XL) TAB PO SCH (09:00)
[2018-09-16] MEDS: HYDROcodone/APAP 10 MG/325 MG (LORTAB) TAB PO PRN ×2 (09:03→20:55)
--- NOTE | 2018-09-16 09:14 | PM&R Progress Note ---
Subjective HPI/CC On Admission Date Seen by Provider: Sep 16, 2018 Time Seen by Provider: 09:15 CC: Severe debility following an extensive C3-6 Laminectomy and C3-T2 PSF with instrumentation uncomplicated by Dr Garcia POD # 3 HPI: This is a 63-year-old white male who presented to inpatient rehabilitation due to severe debility following extensive spine surgery with hardware placement. He required ICU monitoring due to the profound impact the procedure had placing him at risk for acute blood loss, respiratory failure and arrhythmia. He did well during ICU stay did have acute renal failure creatinine 1.6 but that resolved with aggressive IV fluids. He is noncompliant with obstructive sleep apnea treatment with CPAP and he was maintain on oxygen during ICU stay. Pain was controlled and he minimized the amount of pain medication he took which is been very helpful in a more rapid recovery but still needed aggressive physical therapy and management in the inpatient rehabilitation unit. Currently patient is doing well pain is controlled and I have reordered metformin home medication due to resolution of acute renal failure. Subjective/Events-last exam Feeling a little better Dry cough resolved Pain is still an issue and Dr. Radha Alexander saw him yesterday and evaluated the post op site to be good and as expected. Was hoping for discharge but not until pain is controlled. Lasix one dose improved the lower leg edema Bowels are moving Review of Systems Musculoskeletal: back pain Objective Exam Vital Signs Vital Signs Date Time Temp Pulse Resp B/P (MAP) Pulse Ox O2 Delivery O2 Flow Rate FiO2 09/16/18 06:37 97.2 86 18 126/82 (97) 98 Room Air Capillary Refill : General Appearance: No Apparent Distress, WD/WN, Chronically ill, Obese, Other (improved) HEENT: PERRL/EOMI, Normal ENT Inspection, Pharynx Normal, Moist Mucous Membranes Neck: Full Range of Motion, Normal Inspection, Non Tender, Supple Respiratory: Chest Non Tender, Lungs Clear, Normal Breath Sounds, No Accessory Muscle Use, No Respiratory Distress Cardiovascular: Regular Rate, Rhythm, No Edema, No Gallop, No JVD, No Murmur Gastrointestinal: Normal Bowel Sounds, No Organomegaly, No Pulsatile Mass, Non Tender, Soft Back: Decreased Range of Motion, Muscle Spasm, Vertebral Tenderness Extremity: Normal Capillary Refill, Pedal Edema Neurologic/Psychiatric: Alert, Oriented x3, No Motor/Sensory Deficits, Normal Mood/Affect, supervisor customer services II-XII Norm as Tested, Other (Positive right straight leg raise , 5/5 bilateral dorsiflexion and plantar flexion) Skin: Other (Dressing with moderate serosanguineous drainage. No drainage could be expressed from wound. Skin edges intact. No fluctuance, induration, or erythema) Lymphatic: No Adenopathy Results/Procedures Lab Patient resulted labs reviewed. Assessment/Plan Assessment and Plan Assess & Plan/Chief Complaint Assessment: Status post extensive spine surgery with hardware placement with subsequent severe debility requiring inpatient rehabilitation Hypertension Status post acute renal failure Diabetes mellitus Obstructive sleep apnea noncompliant with sleep apnea treatment Obesity Sore throat ordered Chloraseptic spray now improved Urinary retention sensation? doing better now Hypokalemia supplementing Leukocytosis with increased back pain and overall feels badly- check labs CXR UA but all normal Edema improved after one dose of Lasix Plan: Pain control Intensive therapies Monitor bowel and bladder function Replaced potassium Back pain is an issue and precludes rapid DC (1) Fixation hardware in spine (2) History of BPH (3) KIMANI (obstructive sleep apnea) (4) Obesity (5) Acute renal failure Assessment & Plan: Resolved (6) Diabetes mellitus (7) Hypokalemia (8) Urinary retention (9) Left knee pain (10) Sore throat (11) Anemia (12) Leukocytosis Clinical Quality Measures DVT/VTE Risk/Contraindication: Risk Factor Score Per Nursin RFS Level Per Nursing on Admit: 4+=Very High MODESTO SOLIS DO Sep 16, 2018 09:14
--- NOTE | 2018-09-16 10:38 | Physical Therapy Daily Note ---
PT Daily Note-Current Subjective Patient in recliner pre tx, agrees to PT, has 8/10 pain, already has had pain meds. Appearance Patient in recliner post tx with nurse call, phone, tray, all needs met. Mental Status Patient Orientation: Person, Place, Situation back brace Transfers Therapy Code Descriptions/Definitions Functional [place] Measure: 0=Not Assessed/NA 4=Minimal Assistance 1=Total Assistance 5=Supervision or Setup 2=Maximal Assistance 6=Modified [place] 3=Moderate Assistance 7=Complete [place] Therapy Quality Codes: 6 Independent with activity with or without an assistive device 5 Patient requires set up or clean up by helper. Patient completes activity by themselves 4 Supervision or touching assist (CGA). [place] provide cues , steadying assist 3 The helper provides less than half the effort to complete the activity 2 The helper provides more than half the effort to complete the activity 1 Dependent. The helper does all the effort to complete an activity 7 Patient refused to complete or attempt activity 9 The patient did not perform the activity before the current illness or injury 88 Not attempted due to Medical conditions or safety concerns Transfers (B, C, W/C) (FIM): 5 Sit to/from Stand: 5 Bed to/from Chair: 5 Weight Bearing Right Lower Extremity: Right Weight Bearing/Tolerated Left Lower Extremity: Left Weight Bearing/Tolerated Gait Training Gait (FIM): 2 Distance: 120', 30'x3 Gait Level of Assist: 5 Gait Persons Needed: 1 Gait Assistive Device: FWW Patient ambulated to the therapy gym with a couple of rest breaks but was able to ambulate all the way back to his room after treatment. Patient has antalgic ambulation, very slow, but steady. Exercises Standing: Hip Abduction, Heel/toe raises, Marching, Mini squats Standing Reps: 15 LAQ alternating for 5 min NuStep Minutes: 15 NuStep Workload: 5 Treatments transfers, ambulation, functional strengthening Assessment Current Status: Fair Progress improved ambulation and endurance this morning PT Short Term Goals Short Term Goals Time Frame: Sep 15, 2018 Transfers (B,C,W/C) (FIM): 4 Gait (FIM): 4 Distance (FIM): 3=150 ft Gait Distance Comment: 150' Gait Level of Assist: 4 Gait Assistive Device: FWW PT Care Home Goals Care Home Goals PT Care Home Goals Time Frame: Sep 29, 2018 Transfers (B,C,W/C) (FIM): 5 Sit to Lying (QC): 4 Lying-Sitting on Side/Bed(QC): 4 Sit to Stand (QC): 4 Rollin Roll Left to Right (QC): 4 Chair/[id number] Xfer(QC): 4 Car Transfer (QC): 4 Does the Patient Walk: Yes Gait (FIM): 5 Gait distance (FIM): 3=150 ft Distance: 300' Walk 10 feet (QC): 4 Walk 10ft-Uneven Surface(QC): 4 Walk 50ft with 2 Turns (QC): 4 Walk 150 ft (QC): 4 Gait Level of Assist: 5 Gait Assistive Device: FWW Stairs (FIM): 2 # of Steps: 4 1 Step (curb) (QC): 4 4 Steps (QC): 4 Stairs Level Of Assist: 5 PT Plan Problem List Problem List: Activity Tolerance, Functional Strength, Safety, Balance, Gait, Transfer, Bed Mobility, ROM Treatment/Plan Treatment Plan: Continue Plan of Care Treatment Plan: Bed Mobility, Education, Functional Activity Ariel, Functional Strength, Group Therapy, Gait, Safety, Therapeutic Exercise, Transfers Treatment Duration: Sep 29, 2018 Frequency: At least 5 of 7 days/Wk (IRF) Estimated Hrs Per Day: 1.5 hours per day Patient and/or Family Agrees t: Yes Safety Risks/Education Patient Education: Gait Training, Transfer Techniques, Correct Positioning, Safety Issues Teaching Recipient: Patient Teaching Methods: Demonstration, Discussion Response to Teaching: Reinforcement Needed Time/GCodes Time In: 0930 Time Out: 1045 Total Billed Treatment Time: 75 Total Billed Treatment 1 visit EX 30' FA 15' GT 30' CHAPO CHAWLA PT Sep 16, 2018 10:38
--- NOTE | 2018-09-16 14:07 | NUR ---
PT EATING WELL, 100% MEALS. WT STABLE. INTAKE MEETING NEEDS AT THIS TIME. CONT SAME.
--- NOTE | 2018-09-16 14:10 | NUR ---
CRITICAL CARE REGISTERED NURSE met with patient to review Team Conference Summary. Due to decline in function and increased pain, discharge plans have been postponed until pain is manageable and functional progress improves. Patient is agreeable to this. X-ray on 09/15 indicates no changes in hardware positioning. Patient states pain is not worse, but it also is not better.
--- NOTE | 2018-09-16 14:25 | Physical Therapy Daily Note ---
PT Daily Note-Current Subjective Patient in recliner pre tx, agrees to PT, no complaints of pain at rest. Appearance Patient in recliner post tx with nurse call, phone, tray, all needs met. Mental Status Patient Orientation: Person, Place, Situation Transfers Therapy Code Descriptions/Definitions Functional Skippers Measure: 0=Not Assessed/NA 4=Minimal Assistance 1=Total Assistance 5=Supervision or Setup 2=Maximal Assistance 6=Modified Skippers 3=Moderate Assistance 7=Complete Sk[place] Therapy Quality Codes: 6 Independent with activity with or without an assistive device 5 Patient requires set up or clean up by helper. Patient completes activity by themselves 4 Supervision or touching assist (CGA). [place] provide cues , steadying assist 3 The helper provides less than half the effort to complete the activity 2 The helper provides more than half the effort to complete the activity 1 Dependent. The helper does all the effort to complete an activity 7 Patient refused to complete or attempt activity 9 The patient did not perform the activity before the current illness or injury 88 Not attempted due to Medical conditions or safety concerns Weight Bearing Right Lower Extremity: Right Weight Bearing/Tolerated Left Lower Extremity: Left Weight Bearing/Tolerated Exercises Seated Therapy Exercises: Ankle pumps, Hip flexion, Hip abd/add Seated Reps: 20 LAQ alternating for 5 min Treatments functional strengthening Assessment Current Status: Fair Progress less pain PT Short Term Goals Short Term Goals Time Frame: Sep 15, 2018 Transfers (B,C,W/C) (FIM): 4 Gait (FIM): 4 Distance (FIM): 3=150 ft Gait Distance Comment: 150' Gait Level of Assist: 4 Gait Assistive Device: FWW PT Edge Cutter Goals Care Home Goals PT Edge Cutter Goals Time Frame: Sep 29, 2018 Transfers (B,C,W/C) (FIM): 5 Sit to Lying (QC): 4 Lying-Sitting on Side/Bed(QC): 4 Sit to Stand (QC): 4 Rollin Roll Left to Right (QC): 4 Chair/Dss-ip-Zrzxe Xfer(QC): 4 Car Transfer (QC): 4 Does the Patient Walk: Yes Gait (FIM): 5 Gait distance (FIM): 3=150 ft Distance: 300' Walk 10 feet (QC): 4 Walk 10ft-Uneven Surface(QC): 4 Walk 50ft with 2 Turns (QC): 4 Walk 150 ft (QC): 4 Gait Level of Assist: 5 Gait Assistive Device: FWW Stairs (FIM): 2 # of Steps: 4 1 Step (curb) (QC): 4 4 Steps (QC): 4 Stairs Level Of Assist: 5 PT Plan Problem List Problem List: Activity Tolerance, Functional Strength, Safety, Balance, Gait, Transfer, Bed Mobility, ROM Treatment/Plan Treatment Plan: Continue Plan of Care Treatment Plan: Bed Mobility, Education, Functional Activity Ariel, Functional Strength, Group Therapy, Gait, Safety, Therapeutic Exercise, Transfers Treatment Duration: Sep 29, 2018 Frequency: At least 5 of 7 days/Wk (IRF) Estimated Hrs Per Day: 1.5 hours per day Patient and/or Family Agrees t: Yes Safety Risks/Education Patient Education: Correct Positioning, Safety Issues Teaching Recipient: Patient Teaching Methods: Demonstration, Discussion Response to Teaching: Reinforcement Needed Time/GCodes Time In: 1405 Time Out: 1420 Total Billed Treatment Time: 15 Total Billed Treatment 1 visit EX Cayla' CHAPO CHAWLA PT Sep 16, 2018 14:25
[2018-09-16 18:00] VITALS: BP 110/70
[2018-09-16] MEDS: FINASTERIDE (PROSCAR) 5 MG TAB PO SCH (18:21)
[2018-09-16] MEDS: TAMSULOSIN 0.4 MG (FLOMAX) CAP PO SCH (18:21)
[2018-09-16] MEDS: guaiFENesin/DM (ROBITUSSIN DM) 10 ML UDC PO PRN (21:41)
[2018-09-17 06:17] VITALS: BP 135/73
[2018-09-17] MEDS: inSUlin ASPART (NovoLOG) 1 UNIT/0.01 ML (CHARGE PER UNIT) SC SCH ×4 (06:17→21:36)
[2018-09-17] MEDS: metFORMIN XR 500 MG (GLUCOPHAGE XR) TAB PO SCH ×2 (06:19→17:15)
[2018-09-17] MEDS: DOXYCYCLINE 100 MG (VIBRAMYCIN) TABLET PO SCH ×2 (06:19→17:15)
[2018-09-17] MEDS: KCL 10 MEQ TAB (MICRO K) PO SCH ×3 (06:19→17:15)
[2018-09-17] MEDS: GABAPENTIN 600 MG (NEURONTIN) TAB PO SCH ×3 (08:26→21:40)
[2018-09-17] MEDS: CYCLOBENZAPRINE 10 MG (FLEXERIL) TAB PO SCH ×3 (08:27→21:40)
[2018-09-17] MEDS: MULTIVIT W/MINERALS TAB (THERAGRAN M) PO SCH (08:27)
[2018-09-17] MEDS: meTOproloL SUCCINATE 50 MG (TOPROL XL) TAB PO SCH (08:27)
[2018-09-17] MEDS: HYDROcodone/APAP 10 MG/325 MG (LORTAB) TAB PO PRN ×3 (08:27→21:39)
--- NOTE | 2018-09-17 08:56 | Occupational Ther Daily Note ---
OT Current Status-Daily Note Subjective Pt alert, reclined fully back in recliner. Pt agrees to therapy. Pain rated at 8/10, nrsg gave meds. Mental Status/Objective Patient Orientation: Person, Place, Time, Situation Therapy Code Descriptions/Definitions Functional [place] Measure: 0=Not Assessed/NA 4=Minimal Assistance 1=Total Assistance 5=Supervision or Setup 2=Maximal Assistance 6=Modified [place] 3=Moderate Assistance 7=Complete [place] Attachments: Other-See Comments (back brace) ADL-Treatment Therapy Code Descriptions/Definitions Functional [place] Measure: 0=Not Assessed/NA 4=Minimal Assistance 1=Total Assistance 5=Supervision or Setup 2=Maximal Assistance 6=Modified [place] 3=Moderate Assistance 7=Complete [place] Therapy Quality Codes: 6 Independent with activity with or without an assistive device 5 Patient requires set up or clean up by helper. Patient completes activity by themselves 4 Supervision or touching assist (CGA). [place] provide cues , steadying assist 3 The helper provides less than half the effort to complete the activity 2 The helper provides more than half the effort to complete the activity 1 Dependent. The helper does all the effort to complete an activity 7 Patient refused to complete or attempt activity 9 The patient did not perform the activity before the current illness or injury 88 Not attempted due to Medical conditions or safety concerns Bathing (FIM): 5 (Supervision using AE. Pt able to complete all areas.) Bathing Location: L Arm, R Arm, L Upper Leg, R Upper Leg, L Lower Leg ( including foot), R Lower Leg (including foot), Chest, Abdomen, Buttocks, Perineal Area Shower/Bathe Self (QC): 4 Upper Body (FIM): 5 (After set up, pt able to complete by self. Pt dons/doffs back brace by self.) Upper Body Dressing (QC): 5 Lower Body Dressing (FIM): 5 (SBA in standing to hike over hips. AE used to don pants. Pt declined socks.) Lower Body Dressing (QC): 4 Toileting (FIM): 6 (Pt able to complete using AE. Provided with toilet tongs.) Toileting Hygiene (QC): 6 Transfers (B, C, W/C) (FIM): 6 (Using elevated surfaces and lift chair pt able to complete with FWW.) Toilet/Commode Transfer (FIM): 6 Toilet Transfer (QC): 6 Shower Transfer(FIM): 5 (Using AE, pt able to complete with SBA for safety.) Other Treatment MHP applied to R hip area to decrease pain and stiffness. UE exercises completed to increase strength and activity tolerance for daily functional tasks. Dowel michelle exercises (4) with 6# attached while pt in supine, 3 sets 10 reps. No c/o pain, pinching or stress on shldrs or back. Resistive clothes pins completed to increase pinch and metal furniture assembler. After therapy, pt lying in recliner with call light/phone in reach. Nrsg in room. All needs met in room. OT Short Term Goals Short Term Goals Time Frame: Sep 22, 2018 Eating(FIM): 7 Grooming(FIM): 7 Bathing(FIM): 5 Bathing Location: L Arm, R Arm, L Upper Leg, R Upper Leg, L Lower Leg ( including foot), R Lower Leg (including foot), Chest, Abdomen, Buttocks, Perineal Area Upper Body Dressing(FIM): 6 Lower Body Dressing(FIM): 5 Toileting(FIM): 7 Transfers (B,C,W/C) (FIM): 4 Toilet/Commode Transfer(FIM): 7 Tub Transfer(FIM): 0 Shower Transfer(FIM): 7 Additional Short Term Goals: 1-Demonstrate ADL Tasks, 2-Verbalize Understanding , 3-ImproveStrength/Ariel 1=Demonstrate adherence to instructed precautions during ADL tasks. 2=Patient will verbalize/demonstrate understanding of assistive devices/ modifications for ADL. 3=Patient will improve strength/tolerance for activity to enable patient to perform ADL's. OT Care Home Goals Care Home Goals Time Frame: Oct 06, 2018 Eating (FIM): 7 Eating (QC): 6 Groomin Oral Hygiene (QC): 6 Bathing(FIM): 7 Bathing Location: L Arm, R Arm, L Upper Leg, R Upper Leg, L Lower Leg ( including foot), R Lower Leg (including foot), Chest, Abdomen, Buttocks, Perineal Area Shower/Bathe Self (QC): 6 Upper Body Dressing(FIM): 7 Upper Body Dressing (QC): 6 Lower Body Dressing(FIM): 7 Lower Body Dressing (QC): 6 On/Off Footwear (QC): 6 Toileting(FIM): 7 Toileting Hygiene (QC): 6 Transfers (B,C,W/C) (FIM): 7 Toilet/Commode Transfer(FIM): 7 Toilet/Commode Transfer (QC): 6 Tub Transfer(FIM): 7 Shower Transfer(FIM): 7 Additional Goals: 1-Demonstrate ADL Tasks, 2-Verbalize Understanding, 3- ImproveStrength/Ariel 1=Demonstrate adherence to instructed precautions during ADL tasks. 2=Patient will verbalize/demonstrate understanding of assistive devices/ modifications for ADL. 3=Patient will improve strength/tolerance for activity to enable patient to perform ADL's. OT Education/Plan Problem List/Assessment Assessment: Decreased Activ Tolerance, Impaired Self-Care Skills Discharge Recommendations Plan/Recommendations: Continue POC Treatment Plan/Plan of Care Patient would benefit from OT for education, treatment and training to promote independence in ADL's, mobility, safety and/or upper extremity function for ADL' s. Plan of Care: ADL Retraining, Caregiver Training, Functional Mobility, Group Exercise/Act as Ind, UE Funct Exercise/Act, UE Neuromus Re-Ed/Coord Treatment Duration: Oct 06, 2018 Frequency: 5 times per week Estimated Hrs Per Day: 1.5 hours per day Agreement: Yes Rehab Potential: Good Time/GCodes Start Time: 07:20 Stop Time: 08:30 Total Time Billed (hr/min): 70 Billed Treatment Time 1 visit-ADL 4 (53 min) EX 1 (17 min) BREE LENTZ Sep 17, 2018 08:56
--- NOTE | 2018-09-17 09:13 | PM&R Progress Note ---
Subjective HPI/CC On Admission Date Seen by Provider: Sep 17, 2018 Time Seen by Provider: 09:30 CC: Severe debility following an extensive C3-6 Laminectomy and C3-T2 PSF with instrumentation uncomplicated by Dr Garcia POD # 3 HPI: This is a 63-year-old white male who presented to inpatient rehabilitation due to severe debility following extensive spine surgery with hardware placement. He required ICU monitoring due to the profound impact the procedure had placing him at risk for acute blood loss, respiratory failure and arrhythmia. He did well during ICU stay did have acute renal failure creatinine 1.6 but that resolved with aggressive IV fluids. He is noncompliant with obstructive sleep apnea treatment with CPAP and he was maintain on oxygen during ICU stay. Pain was controlled and he minimized the amount of pain medication he took which is been very helpful in a more rapid recovery but still needed aggressive physical therapy and management in the inpatient rehabilitation unit. Currently patient is doing well pain is controlled and I have reordered metformin home medication due to resolution of acute renal failure. Subjective/Events-last exam Feeling a little better but pain persists Dry cough on occasion but that appears to be chronic Pain is still an issue and I did update Dr Garcia and he states his progress and complaints are expected Was hoping for discharge 2 days ago but not until pain is controlled. Lasix one dose improved the lower leg edema 2 days ago so will repeat that again today Bowels are moving Review of Systems General: Fatigue Cardiovascular: Edema Musculoskeletal: back pain Objective Exam Vital Signs Vital Signs Date Time Temp Pulse Resp B/P (MAP) Pulse Ox O2 Delivery O2 Flow Rate FiO2 09/17/18 06:17 96.8 91 16 135/73 (93) 95 Room Air Capillary Refill : General Appearance: No Apparent Distress, WD/WN, Chronically ill, Obese, Other (improved) HEENT: PERRL/EOMI, Normal ENT Inspection, Pharynx Normal, Moist Mucous Membranes Neck: Full Range of Motion, Normal Inspection, Non Tender, Supple Respiratory: Chest Non Tender, Lungs Clear, Normal Breath Sounds, No Accessory Muscle Use, No Respiratory Distress Cardiovascular: Regular Rate, Rhythm, No Edema, No Gallop, No JVD, No Murmur Gastrointestinal: Normal Bowel Sounds, No Organomegaly, No Pulsatile Mass, Non Tender, Soft Back: Decreased Range of Motion, Muscle Spasm, Vertebral Tenderness Extremity: Normal Capillary Refill, Pedal Edema Neurologic/Psychiatric: Alert, Oriented x3, No Motor/Sensory Deficits, Normal Mood/Affect, 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 No drainage could be expressed from wound. Skin edges intact. No fluctuance, induration, or erythema) Lymphatic: No Adenopathy Results/Procedures Lab Patient resulted labs reviewed. Assessment/Plan Assessment and Plan Assess & Plan/Chief Complaint Assessment: Status post extensive spine surgery with hardware placement with subsequent severe debility requiring inpatient rehabilitation Hypertension Status post acute renal failure Diabetes mellitus Obstructive sleep apnea noncompliant with sleep apnea treatment Obesity Sore throat ordered Chloraseptic spray now improved Urinary retention sensation? doing better now Hypokalemia supplementing Leukocytosis with increased back pain and overall feels badly- check labs CXR UA but all normal Edema improved after one dose of Lasix 2 days ago and gave an additional dose today again Plan: Pain control Intensive therapies Monitor bowel and bladder function Replaced potassium Back pain is an issue and precludes rapid DC Lasix for edema (1) Fixation hardware in spine (2) History of BPH (3) KIMANI (obstructive sleep apnea) (4) Obesity (5) Acute renal failure Assessment & Plan: Resolved (6) Diabetes mellitus (7) Hypokalemia (8) Urinary retention (9) Left knee pain (10) Sore throat (11) Anemia (12) Leukocytosis (13) Edema Clinical Quality Measures DVT/VTE Risk/Contraindication: Risk Factor Score Per Nursin RFS Level Per Nursing on Admit: 4+=Very High MODESTO SOLIS DO Sep 17, 2018 09:13
[2018-09-17] MEDS ORDERED: FUROSEMIDE 40 MG (LASIX) TAB PO NR (09:15)
--- NOTE | 2018-09-17 09:56 | Physical Therapy Daily Note ---
PT Daily Note-Current Subjective Patient in recliner pre tx, agrees to PT, has 2/10 pain in back and 8/10 pain in right leg. Appearance Patient in recliner post tx with nurse call, phone, tray, all needs met. Mental Status Patient Orientation: Person, Place, Situation back brace Transfers Therapy Code Descriptions/Definitions Functional [place] Measure: 0=Not Assessed/NA 4=Minimal Assistance 1=Total Assistance 5=Supervision or Setup 2=Maximal Assistance 6=Modified [place] 3=Moderate Assistance 7=Complete [place] Therapy Quality Codes: 6 Independent with activity with or without an assistive device 5 Patient requires set up or clean up by helper. Patient completes activity by themselves 4 Supervision or touching assist (CGA). [place] provide cues , steadying assist 3 The helper provides less than half the effort to complete the activity 2 The helper provides more than half the effort to complete the activity 1 Dependent. The helper does all the effort to complete an activity 7 Patient refused to complete or attempt activity 9 The patient did not perform the activity before the current illness or injury 88 Not attempted due to Medical conditions or safety concerns Transfers (B, C, W/C) (FIM): 5 Sit to/from Stand: 5 Bed to/from Chair: 5 Weight Bearing Right Lower Extremity: Right Weight Bearing/Tolerated Left Lower Extremity: Left Weight Bearing/Tolerated Gait Training Gait (FIM): 5 Distance: 150', 40'x3 Gait Level of Assist: 5 Gait Persons Needed: 1 Gait Assistive Device: FWW Antalgic, slow ambulation, wide MARY Exercises Standing: Heel/toe raises, Marching, Mini squats Standing Reps: 15 sidestepping in parallel bars 8'x4 NuStep Minutes: 15 NuStep Workload: 6 Treatments transfers, ambulation, functional strengthening Assessment Current Status: Fair Progress improving endurance, patient very stiff in the beginning and loosens up a little by the end of treatment PT Short Term Goals Short Term Goals Time Frame: Sep 15, 2018 Transfers (B,C,W/C) (FIM): 4 Gait (FIM): 4 Distance (FIM): 3=150 ft Gait Distance Comment: 150' Gait Level of Assist: 4 Gait Assistive Device: FWW PT Spud Driller Goals Spud Driller Goals PT Spud Driller Goals Time Frame: Sep 29, 2018 Transfers (B,C,W/C) (FIM): 5 Sit to Lying (QC): 4 Lying-Sitting on Side/Bed(QC): 4 Sit to Stand (QC): 4 Rollin Roll Left to Right (QC): 4 Chair/Nax-en-Chdot Xfer(QC): 4 Car Transfer (QC): 4 Does the Patient Walk: Yes Gait (FIM): 5 Gait distance (FIM): 3=150 ft Distance: 300' Walk 10 feet (QC): 4 Walk 10ft-Uneven Surface(QC): 4 Walk 50ft with 2 Turns (QC): 4 Walk 150 ft (QC): 4 Gait Level of Assist: 5 Gait Assistive Device: FWW Stairs (FIM): 2 # of Steps: 4 1 Step (curb) (QC): 4 4 Steps (QC): 4 Stairs Level Of Assist: 5 PT Plan Problem List Problem List: Activity Tolerance, Functional Strength, Safety, Balance, Gait, Transfer, Bed Mobility, ROM Treatment/Plan Treatment Plan: Continue Plan of Care Treatment Plan: Bed Mobility, Education, Functional Activity Ariel, Functional Strength, Group Therapy, Gait, Safety, Therapeutic Exercise, Transfers Treatment Duration: Sep 29, 2018 Frequency: At least 5 of 7 days/Wk (IRF) Estimated Hrs Per Day: 1.5 hours per day Patient and/or Family Agrees t: Yes Safety Risks/Education Patient Education: Gait Training, Transfer Techniques, Correct Positioning, Safety Issues Teaching Recipient: Patient Teaching Methods: Demonstration, Discussion Response to Teaching: Reinforcement Needed Time/GCodes Time In: 0900 Time Out: 1000 Total Billed Treatment Time: 60 Total Billed Treatment 1 visit GT 30' EX 30' CHAPO CHAWLA PT Sep 17, 2018 09:55
--- NOTE | 2018-09-17 13:21 | Therapy Group Daily Note ---
Therapy Daily Group Note Patient Education Topic Exercises, Other List Below (AE for home use) Exercises UE Exercise (theraband) Session Ratio (pt:therapist): 4:1 Goal of Session: Education on ARU Expectations, UE/LE Strengthing, Use of Adaptive Equipment Goal Met for this Session: Yes Pt Benefit of Group: Contributions to Others, F/U Use of Strategies @Home, Increased Functional Safety, Increased Functional Strength, Recognition of Peers , Socialization Other/Notes Pt ambulated to OT group in [facility]. Group consisted of introductions (name, place living, springtime activity), socialization, UE theraband exercises , benefits of exercise and AE for home use. Pt introduced self appropriately and actively listened to peers. Pt able to contribute to discussions about educational topics and give personal strategies. Pt initiated and participated in conversations with peers throughout group. Pt demonstrated ability to complete exercises and use good techniques. Theraband given to pt for use in room. Pt ambulated back to room to use bathroom. Pt sitting in recliner after group with call light/phone in reach. All needs met in room. Start Time: 11:30 Stop Time: 12:30 Total Billed Treatment Time: 60 Total Billed Treatment 1-GRP BREE LENTZ Sep 17, 2018 13:21
[2018-09-17] MEDS: TAMSULOSIN 0.4 MG (FLOMAX) CAP PO SCH (17:15)
[2018-09-17] MEDS: FINASTERIDE (PROSCAR) 5 MG TAB PO SCH (17:15)
[2018-09-17 18:00] VITALS: BP 134/74
[2018-09-17] MEDS: guaiFENesin/DM (ROBITUSSIN DM) 10 ML UDC PO PRN (21:40)
[2018-09-18] MEDS: HYDROcodone/APAP 10 MG/325 MG (LORTAB) TAB PO PRN ×3 (04:43→22:36)
[2018-09-18 05:09] VITALS: BP 132/81
[2018-09-18] MEDS: inSUlin ASPART (NovoLOG) 1 UNIT/0.01 ML (CHARGE PER UNIT) SC SCH ×4 (05:34→20:59)
[2018-09-18] MEDS: DOXYCYCLINE 100 MG (VIBRAMYCIN) TABLET PO SCH ×2 (06:22→17:26)
[2018-09-18] MEDS: metFORMIN XR 500 MG (GLUCOPHAGE XR) TAB PO SCH ×2 (06:22→17:26)
[2018-09-18] MEDS: KCL 10 MEQ TAB (MICRO K) PO SCH ×3 (06:23→17:26)
[2018-09-18] MEDS: CYCLOBENZAPRINE 10 MG (FLEXERIL) TAB PO SCH ×3 (08:54→20:58)
[2018-09-18] MEDS: meTOproloL SUCCINATE 50 MG (TOPROL XL) TAB PO SCH (08:54)
[2018-09-18] MEDS: MULTIVIT W/MINERALS TAB (THERAGRAN M) PO SCH (08:54)
[2018-09-18] MEDS: GABAPENTIN 600 MG (NEURONTIN) TAB PO SCH ×3 (08:55→20:58)
--- NOTE | 2018-09-18 11:03 | Physical Therapy Daily Note ---
PT Daily Note-Current Subjective Pain rated 4/10 in (R) hip. Pt states pain is doing "a lot better" today. Agreeable, without complaint. Pt donned thoracic brace (I). Mental Status Patient Orientation: Person, Place, Situation Transfers Therapy Code Descriptions/Definitions Functional [place] Measure: 0=Not Assessed/NA 4=Minimal Assistance 1=Total Assistance 5=Supervision or Setup 2=Maximal Assistance 6=Modified [place] 3=Moderate Assistance 7=Complete [place] Therapy Quality Codes: 6 Independent with activity with or without an assistive device 5 Patient requires set up or clean up by helper. Patient completes activity by themselves 4 Supervision or touching assist (CGA). [place] provide cues , steadying assist 3 The helper provides less than half the effort to complete the activity 2 The helper provides more than half the effort to complete the activity 1 Dependent. The helper does all the effort to complete an activity 7 Patient refused to complete or attempt activity 9 The patient did not perform the activity before the current illness or injury 88 Not attempted due to Medical conditions or safety concerns Transfers from recliner mod (I) Weight Bearing Right Lower Extremity: Right Weight Bearing/Tolerated Left Lower Extremity: Left Weight Bearing/Tolerated Gait Training Gait Assistive Device: FWW Pt amb to gym and back with FWW, SBA. Pt amb 2 x 120ft, steady speed Exercises NuStep Minutes: 15 NuStep Workload: 7 Assessment Current Status: Good Progress Pt lawanda well. Demonstrated safe mobility. Progressing nicely. Pt back to recliner with call light and all needs met post therapy session. PT Short Term Goals Short Term Goals Time Frame: Sep 15, 2018 Transfers (B,C,W/C) (FIM): 4 Gait (FIM): 4 Distance (FIM): 3=150 ft Gait Distance Comment: 150' Gait Level of Assist: 4 Gait Assistive Device: FWW PT Drywall Applicator Goals Drywall Applicator Goals PT Mcc Goals Time Frame: Sep 29, 2018 Transfers (B,C,W/C) (FIM): 5 Sit to Lying (QC): 4 Lying-Sitting on Side/Bed(QC): 4 Sit to Stand (QC): 4 Rollin Roll Left to Right (QC): 4 Chair/Wdg-sa-Icipe Xfer(QC): 4 Car Transfer (QC): 4 Does the Patient Walk: Yes Gait (FIM): 5 Gait distance (FIM): 3=150 ft Distance: 300' Walk 10 feet (QC): 4 Walk 10ft-Uneven Surface(QC): 4 Walk 50ft with 2 Turns (QC): 4 Walk 150 ft (QC): 4 Gait Level of Assist: 5 Gait Assistive Device: FWW Stairs (FIM): 2 # of Steps: 4 1 Step (curb) (QC): 4 4 Steps (QC): 4 Stairs Level Of Assist: 5 PT Plan Treatment/Plan Treatment Plan: Continue Plan of Care Treatment Plan: Bed Mobility, Education, Functional Activity Ariel, Functional Strength, Group Therapy, Gait, Safety, Therapeutic Exercise, Transfers Treatment Duration: Sep 29, 2018 Frequency: At least 5 of 7 days/Wk (IRF) Estimated Hrs Per Day: 1.5 hours per day Patient and/or Family Agrees t: Yes Time/GCodes Time In: 810 Time Out: 835 Total Billed Treatment Time: 25 Total Billed Treatment 1, ther ex 15', Gait 10' ULISES BRADFORD Sep 18, 2018 11:03
--- NOTE | 2018-09-18 11:12 | PM&R Progress Note ---
Subjective HPI/CC On Admission Date Seen by Provider: Sep 18, 2018 Time Seen by Provider: 11:15 CC: Severe debility following an extensive C3-6 Laminectomy and C3-T2 PSF with instrumentation uncomplicated by Dr Garcia POD # 3 HPI: This is a 63-year-old white male who presented to inpatient rehabilitation due to severe debility following extensive spine surgery with hardware placement. He required ICU monitoring due to the profound impact the procedure had placing him at risk for acute blood loss, respiratory failure and arrhythmia. He did well during ICU stay did have acute renal failure creatinine 1.6 but that resolved with aggressive IV fluids. He is noncompliant with obstructive sleep apnea treatment with CPAP and he was maintain on oxygen during ICU stay. Pain was controlled and he minimized the amount of pain medication he took which is been very helpful in a more rapid recovery but still needed aggressive physical therapy and management in the inpatient rehabilitation unit. Currently patient is doing well pain is controlled and I have reordered metformin home medication due to resolution of acute renal failure. Subjective/Events-last exam Feeling a little better but pain persists and I told him I updated Dr Garcia and he has assessed this to be the normal course post op Dry cough resolved Pain is still an issue and he is working better through it DC hopefully at the first of the week Lasix every 48 hours is really helping the edema of the legs and that is helping the pain too Bowels are moving K-pad requested Review of Systems Cardiovascular: Edema Musculoskeletal: back pain Objective Exam Vital Signs Vital Signs Date Time Temp Pulse Resp B/P (MAP) Pulse Ox O2 Delivery O2 Flow Rate FiO2 09/18/18 09:00 Room Air 09/18/18 05:09 98.0 97 21 132/81 (98) 96 Capillary Refill : General Appearance: No Apparent Distress, WD/WN, Chronically ill, Obese, Other (improved) HEENT: PERRL/EOMI, Normal ENT Inspection, Pharynx Normal, Moist Mucous Membranes Neck: Full Range of Motion, Normal Inspection, Non Tender, Supple Respiratory: Chest Non Tender, Lungs Clear, Normal Breath Sounds, No Accessory Muscle Use, No Respiratory Distress Cardiovascular: Regular Rate, Rhythm, No Edema, No Gallop, No JVD, No Murmur Gastrointestinal: Normal Bowel Sounds, No Organomegaly, No Pulsatile Mass, Non Tender, Soft Back: Decreased Range of Motion, Muscle Spasm, Vertebral Tenderness Extremity: Normal Capillary Refill, Pedal Edema Neurologic/Psychiatric: Alert, Oriented x3, No Motor/Sensory Deficits, Normal Mood/Affect, 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 No drainage could be expressed from wound. Skin edges intact. No fluctuance, induration, or erythema) Lymphatic: No Adenopathy Results/Procedures Lab Patient resulted labs reviewed. Assessment/Plan Assessment and Plan Assess & Plan/Chief Complaint Assessment: Status post extensive spine surgery with hardware placement with subsequent severe debility requiring inpatient rehabilitation Hypertension Status post acute renal failure Diabetes mellitus Obstructive sleep apnea noncompliant with sleep apnea treatment Obesity Sore throat ordered Chloraseptic spray now improved Urinary retention sensation? doing better now Hypokalemia supplementing Leukocytosis with increased back pain and overall feels badly- check labs CXR UA but all normal Edema improved after one dose of Lasix 3 days ago and gave an additional dose yesterday Plan: Pain control Intensive therapies Monitor bowel and bladder function Replaced potassium Back pain is an issue and precludes rapid DC Lasix for edema (1) Fixation hardware in spine (2) History of BPH (3) KIMANI (obstructive sleep apnea) (4) Obesity (5) Acute renal failure Assessment & Plan: Resolved (6) Diabetes mellitus (7) Hypokalemia (8) Urinary retention (9) Left knee pain (10) Sore throat (11) Anemia (12) Leukocytosis (13) Edema Clinical Quality Measures DVT/VTE Risk/Contraindication: Risk Factor Score Per Nursin RFS Level Per Nursing on Admit: 4+=Very High MODESTO SOLIS DO Sep 18, 2018 11:12
[2018-09-18 15:50] VITALS: BP 134/67
[2018-09-18] MEDS: FINASTERIDE (PROSCAR) 5 MG TAB PO SCH (17:26)
[2018-09-18] MEDS: TAMSULOSIN 0.4 MG (FLOMAX) CAP PO SCH (17:26)
[2018-09-19 05:14] VITALS: BP 100/63
[2018-09-19 05:21] LABS: BASOPHILS % (AUTO) 0 % (0-10); EOSINOPHILS # (AUTO) 0.2 10^3/uL (0.0-0.3); EOSINOPHILS % (AUTO) 2 % (0-10); HEMATOCRIT 29 % (40-54); LYMPHOCYTES # (AUTO) 1.9 X 10^3 (1.0-4.0); LYMPHOCYTES % (AUTO) 17 % (12-44); MEAN CORPUSCULAR HEMOGLOBIN 28 PG (25-34); MEAN CORPUSCULAR HGB CONC 31 G/DL (32-36); MEAN CORPUSCULAR VOLUME 89 FL (80-99); MONOCYTES % (AUTO) 10 % (0-12); NEUTROPHILS # (AUTO) 7.8 X 10^3 (1.8-7.8); NEUTROPHILS % (AUTO) 72 % (42-75); PLATELET COUNT 453 10^3/uL (130-400); RED CELL DISTRIBUTION WIDTH 15.6 % (10.0-14.5); WHITE BLOOD COUNT 10.8 10^3/uL (4.3-11.0)
[2018-09-19 05:45] LABS: ALANINE AMINOTRANSFERASE 30 U/L (0-55); ALBUMIN 2.6 GM/DL (3.2-4.5); ALKALINE PHOSPHATASE 81 U/L (40-136); BILIRUBIN,TOTAL 0.3 MG/DL (0.1-1.0); BUN/CREATININE RATIO 16; CALCIUM 8.1 MG/DL (8.5-10.1); CARBON DIOXIDE 27 MMOL/L (21-32); CHLORIDE 100 MMOL/L (98-107); CREATININE SERUM 0.76 MG/DL (0.60-1.30); GFR ESTIMATED > 60; GLUCOSE 123 MG/DL (70-105); POTASSIUM 3.3 MMOL/L (3.6-5.0); SODIUM 138 MMOL/L (135-145); TOTAL PROTEIN 5.4 GM/DL (6.4-8.2)
[2018-09-19] MEDS: inSUlin ASPART (NovoLOG) 1 UNIT/0.01 ML (CHARGE PER UNIT) SC SCH ×4 (05:47→20:56)
[2018-09-19] MEDS: KCL 10 MEQ TAB (MICRO K) PO SCH ×3 (06:01→17:21)
[2018-09-19] MEDS: HYDROcodone/APAP 10 MG/325 MG (LORTAB) TAB PO PRN (06:01)
[2018-09-19] MEDS: metFORMIN XR 500 MG (GLUCOPHAGE XR) TAB PO SCH ×2 (06:01→17:22)
[2018-09-19] MEDS: DOXYCYCLINE 100 MG (VIBRAMYCIN) TABLET PO SCH ×2 (06:02→17:22)
[2018-09-19] MEDS: MULTIVIT W/MINERALS TAB (THERAGRAN M) PO SCH (08:18)
[2018-09-19] MEDS: CYCLOBENZAPRINE 10 MG (FLEXERIL) TAB PO SCH ×3 (08:18→20:55)
[2018-09-19] MEDS: meTOproloL SUCCINATE 50 MG (TOPROL XL) TAB PO SCH (08:18)
[2018-09-19] MEDS: GABAPENTIN 600 MG (NEURONTIN) TAB PO SCH ×3 (08:18→20:55)
--- NOTE | 2018-09-19 11:36 | PM&R Progress Note ---
Subjective HPI/CC On Admission Date Seen by Provider: Sep 19, 2018 Time Seen by Provider: 11:45 CC: Severe debility following an extensive C3-6 Laminectomy and C3-T2 PSF with instrumentation uncomplicated by Dr Garcia POD # 3 HPI: This is a 63-year-old white male who presented to inpatient rehabilitation due to severe debility following extensive spine surgery with hardware placement. He required ICU monitoring due to the profound impact the procedure had placing him at risk for acute blood loss, respiratory failure and arrhythmia. He did well during ICU stay did have acute renal failure creatinine 1.6 but that resolved with aggressive IV fluids. He is noncompliant with obstructive sleep apnea treatment with CPAP and he was maintain on oxygen during ICU stay. Pain was controlled and he minimized the amount of pain medication he took which is been very helpful in a more rapid recovery but still needed aggressive physical therapy and management in the inpatient rehabilitation unit. Currently patient is doing well pain is controlled and I have reordered metformin home medication due to resolution of acute renal failure. Subjective/Events-last exam Feeling much better today and wants DC tomorrow Dry cough resolved Pain is much improved DC hopefully tomorrow Lasix every 48 hours is really helping the edema of the legs and that is helping the pain too and gave an additional dose today again and increased the dose of potassium TID Bowels are moving K-pad requested and is helping Review of Systems Musculoskeletal: back pain Objective Exam Vital Signs Vital Signs Date Time Temp Pulse Resp B/P (MAP) Pulse Ox O2 Delivery O2 Flow Rate FiO2 09/19/18 09:00 Room Air 09/19/18 05:14 98.2 94 20 100/63 (75) 96 Capillary Refill : General Appearance: No Apparent Distress, WD/WN, Chronically ill, Obese, Other (improved) HEENT: PERRL/EOMI, Normal ENT Inspection, Pharynx Normal, Moist Mucous Membranes Neck: Full Range of Motion, Normal Inspection, Non Tender, Supple Respiratory: Chest Non Tender, Lungs Clear, Normal Breath Sounds, No Accessory Muscle Use, No Respiratory Distress Cardiovascular: Regular Rate, Rhythm, No Edema, No Gallop, No JVD, No Murmur Gastrointestinal: Normal Bowel Sounds, No Organomegaly, No Pulsatile Mass, Non Tender, Soft Back: Decreased Range of Motion, Muscle Spasm, Vertebral Tenderness Extremity: Normal Capillary Refill, Pedal Edema Neurologic/Psychiatric: Alert, Oriented x3, No Motor/Sensory Deficits, Normal 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 No drainage could be expressed from wound. Skin edges intact. No fluctuance, induration, or erythema) Lymphatic: No Adenopathy Results/Procedures Lab Laboratory Tests 09/19/18 04:51 Patient resulted labs reviewed. Assessment/Plan Assessment and Plan Assess & Plan/Chief Complaint Assessment: Status post extensive spine surgery with hardware placement with subsequent severe debility requiring inpatient rehabilitation Hypertension Status post acute renal failure Diabetes mellitus Obstructive sleep apnea noncompliant with sleep apnea treatment Obesity Sore throat ordered Chloraseptic spray now improved Urinary retention sensation? doing better now Hypokalemia supplementing Leukocytosis with increased back pain and overall feels badly- check labs CXR UA but all normal Edema improved after one dose of Lasix 3 days ago and gave an additional dose yesterday and again today Plan: Pain control Intensive therapies Monitor bowel and bladder function Replaced potassium Back pain is an issue and precludes rapid DC but now DC planned for tomorrow Lasix for edema which is improved (1) Fixation hardware in spine (2) History of BPH (3) KIMANI (obstructive sleep apnea) (4) Obesity (5) Acute renal failure Assessment & Plan: Resolved (6) Diabetes mellitus (7) Hypokalemia (8) Urinary retention (9) Left knee pain (10) Sore throat (11) Anemia (12) Leukocytosis (13) Edema Clinical Quality Measures DVT/VTE Risk/Contraindication: Risk Factor Score Per Nursin RFS Level Per Nursing on Admit: 4+=Very High MODESTO SOLIS DO Sep 19, 2018 11:36
[2018-09-19] MEDS ORDERED: FUROSEMIDE 40 MG (LASIX) TAB PO NR (12:03)
[2018-09-19] MEDS: FINASTERIDE (PROSCAR) 5 MG TAB PO SCH (17:22)
[2018-09-19] MEDS: TAMSULOSIN 0.4 MG (FLOMAX) CAP PO SCH (17:22)
[2018-09-19] MEDS: guaiFENesin/DM (ROBITUSSIN DM) 10 ML UDC PO PRN (17:31)
[2018-09-19 17:40] VITALS: BP 97/69
[2018-09-20] MEDS: inSUlin ASPART (NovoLOG) 1 UNIT/0.01 ML (CHARGE PER UNIT) SC SCH ×2 (06:09→11:05)
[2018-09-20] MEDS: metFORMIN XR 500 MG (GLUCOPHAGE XR) TAB PO SCH (06:09)
[2018-09-20] MEDS: KCL 10 MEQ TAB (MICRO K) PO SCH ×2 (06:09→11:46)
[2018-09-20] MEDS: DOXYCYCLINE 100 MG (VIBRAMYCIN) TABLET PO SCH (06:09)
[2018-09-20 06:20] VITALS: BP 119/81
[2018-09-20] MEDS: GABAPENTIN 600 MG (NEURONTIN) TAB PO SCH ×2 (07:17→11:47)
[2018-09-20] MEDS: HYDROcodone/APAP 10 MG/325 MG (LORTAB) TAB PO PRN (07:17)
--- NOTE | 2018-09-20 08:08 | Occupational Ther Daily Note ---
OT Current Status-Daily Note Subjective Pt alert, sitting in recliner. Pt agrees to therapy. C/o pain, reported to nrsg brought meds. Mental Status/Objective Patient Orientation: Person, Place, Time, Situation Therapy Code Descriptions/Definitions Functional [place] Measure: 0=Not Assessed/NA 4=Minimal Assistance 1=Total Assistance 5=Supervision or Setup 2=Maximal Assistance 6=Modified [place] 3=Moderate Assistance 7=Complete [place] ADL-Treatment Therapy Code Descriptions/Definitions Functional [place] Measure: 0=Not Assessed/NA 4=Minimal Assistance 1=Total Assistance 5=Supervision or Setup 2=Maximal Assistance 6=Modified [place] 3=Moderate Assistance 7=Complete [place] Therapy Quality Codes: 6 Independent with activity with or without an assistive device 5 Patient requires set up or clean up by helper. Patient completes activity by themselves 4 Supervision or touching assist (CGA). [place] provide cues , steadying assist 3 The helper provides less than half the effort to complete the activity 2 The helper provides more than half the effort to complete the activity 1 Dependent. The helper does all the effort to complete an activity 7 Patient refused to complete or attempt activity 9 The patient did not perform the activity before the current illness or injury 88 Not attempted due to Medical conditions or safety concerns Eating (FIM): 7 (Completes own set up and uses regular utensils.) Eating (QC): 6 Grooming (FIM): 7 (Using counter to stabilized self, pt able to complete own grooming standing at sink.) Oral Hygiene (QC): 6 Bathing (FIM): 6 (Using shower bench, grabbar, hand held shower, long handle sponge and toilet tongs pt able to complete by self.) Bathing Location: L Arm, R Arm, L Upper Leg, R Upper Leg, L Lower Leg ( including foot), R Lower Leg (including foot), Chest, Abdomen, Buttocks, Perineal Area Shower/Bathe Self (QC): 6 Upper Body (FIM): 5 (After set up, pt able to complete by self.) Upper Body Dressing (QC): 5 Lower Body Dressing (FIM): 5 (After set up and using AE, pt able to complete by self. Uses slip on shoes, declines donning socks.) Lower Body Dressing (QC): 5 Toileting (FIM): 6 (Using toilet tongs, FWW and grabbars pt able to complete by self.) Toileting Hygiene (QC): 6 Transfers (B, C, W/C) (FIM): 6 (Using FWW completes by self) Toilet/Commode Transfer (FIM): 6 (Using FWW and grabbars, pt able to complete by self.) Toilet Transfer (QC): 6 Shower Transfer(FIM): 6 (Using FWW, grabbars and shower bench pt able to complete by self.) Pt is demonstrating increased progress and mobility. Pt is able to don/doff back brace by self. After therapy, pt sitting in recliner with call light/ phone in reach. All needs met in room. OT Short Term Goals Short Term Goals Time Frame: Sep 22, 2018 Eating(FIM): 7 Grooming(FIM): 7 Bathing(FIM): 5 Bathing Location: L Arm, R Arm, L Upper Leg, R Upper Leg, L Lower Leg ( including foot), R Lower Leg (including foot), Chest, Abdomen, Buttocks, Perineal Area Upper Body Dressing(FIM): 6 Lower Body Dressing(FIM): 5 Toileting(FIM): 7 Transfers (B,C,W/C) (FIM): 4 Toilet/Commode Transfer(FIM): 7 Tub Transfer(FIM): 0 Shower Transfer(FIM): 7 Additional Short Term Goals: 1-Demonstrate ADL Tasks, 2-Verbalize Understanding , 3-ImproveStrength/Ariel 1=Demonstrate adherence to instructed precautions during ADL tasks. 2=Patient will verbalize/demonstrate understanding of assistive devices/ modifications for ADL. 3=Patient will improve strength/tolerance for activity to enable patient to perform ADL's. OT Residential Goals Farm Truck Driver Goals Time Frame: Oct 06, 2018 Eating (FIM): 7 (met) Eating (QC): 6 (met) Groomin (met) Oral Hygiene (QC): 6 (met) Bathing(FIM): 7 Bathing Location: L Arm, R Arm, L Upper Leg, R Upper Leg, L Lower Leg ( including foot), R Lower Leg (including foot), Chest, Abdomen, Buttocks, Perineal Area Shower/Bathe Self (QC): 6 (met) Upper Body Dressing(FIM): 7 (not met due to using AE and set up only) Upper Body Dressing (QC): 6 (not met) Lower Body Dressing(FIM): 7 (not met due to using AE and set up only) Lower Body Dressing (QC): 6 (not met) On/Off Footwear (QC): 6 Toileting(FIM): 7 (not met due to using AE) Toileting Hygiene (QC): 6 (met) Transfers (B,C,W/C) (FIM): 7 (not met due to using AE) Toilet/Commode Transfer(FIM): 7 (not met due to using AE) Toilet/Commode Transfer (QC): 6 (met) Tub Transfer(FIM): 7 Shower Transfer(FIM): 7 (not met due to using AE) Additional Goals: 1-Demonstrate ADL Tasks, 2-Verbalize Understanding, 3- ImproveStrength/Ariel 1=Demonstrate adherence to instructed precautions during ADL tasks. 2=Patient will verbalize/demonstrate understanding of assistive devices/ modifications for ADL. 3=Patient will improve strength/tolerance for activity to enable patient to perform ADL's. OT Education/Plan Discharge Recommendations Plan/Recommendations: Discharge/Goals Met Therapy D/C Recommendations: Home w/ Family Support Treatment Plan/Plan of Care Patient would benefit from OT for education, treatment and training to promote independence in ADL's, mobility, safety and/or upper extremity function for ADL' s. Plan of Care: ADL Retraining, Caregiver Training, Functional Mobility, Group Exercise/Act as Ind, UE Funct Exercise/Act, UE Neuromus Re-Ed/Coord Treatment Duration: Oct 06, 2018 Frequency: 5 times per week Estimated Hrs Per Day: 1.5 hours per day Agreement: Yes Rehab Potential: Good Time/GCodes Start Time: 07:00 Stop Time: 08:00 Total Time Billed (hr/min): 60 Billed Treatment Time 1 visit-ADL 4 (60 min) BREE LENTZ Sep 20, 2018 08:08
[2018-09-20] MEDS: CYCLOBENZAPRINE 10 MG (FLEXERIL) TAB PO SCH ×2 (08:21→11:47)
[2018-09-20] MEDS: meTOproloL SUCCINATE 50 MG (TOPROL XL) TAB PO SCH (08:21)
[2018-09-20] MEDS: MULTIVIT W/MINERALS TAB (THERAGRAN M) PO SCH (08:21)
[2018-09-20] MEDS ORDERED: HYDR-3820 PO (08:26)
[2018-09-20] MEDS ORDERED: POTA10TA36 PO (08:26)
--- NOTE | 2018-09-20 08:29 | Discharge Summary ---
Diagnosis/Chief Complaint Date of Admission Sep 08, 2018 at 13:34 Date of Discharge Discharge Date: Sep 20, 2018 Discharge Diagnosis Assessment: Status post extensive spine surgery with hardware placement with subsequent severe debility requiring inpatient rehabilitation Hypertension Status post acute renal failure Diabetes mellitus Obstructive sleep apnea noncompliant with sleep apnea treatment Obesity Sore throat ordered Chloraseptic spray now improved Urinary retention sensation? doing better now Hypokalemia supplementing Leukocytosis with increased back pain and overall feels badly- check labs CXR UA but all normal Edema improved after one dose of Lasix 3 days ago and gave an additional dose yesterday and again today Plan: Pain control Intensive therapies Monitor bowel and bladder function Replaced potassium Back pain is an issue and precludes rapid DC but now DC planned for tomorrow Lasix for edema which is improved Discharge Summary Discharge Physical Examination Allergies: Coded Allergies: aspirin (Verified Allergy, Mild, UPSET STOMACH, 08/30/18) latex (Verified Allergy, Mild, HIVES, 08/30/18) Vitals & I&Os Vital Signs Date Time Temp Pulse Resp B/P (MAP) Pulse Ox O2 Delivery O2 Flow Rate FiO2 09/20/18 11:53 92 20 119/81 98 Room Air 09/20/18 06:20 98.2 Hospital Course Was the Problem List Reviewed?: Yes Pt had a lengthy hospital course for 12 days while in inpatient rehab following an extensive spine surgery by Dr. Garcia with multiple hardware pieces placed in the spine. Pt was deemed stable to undergo intensive therapy and tolerated that well. Pt was placed on Doxycyline 100mg twice daily for suppressive antibiotic therapy due to Staph epi small amount on culture that was requested for sensitivity of staph epi. Bowel function returned back to normal but pt did have a great deal of pain limiting PT at a couple of points during the rehab course. Pt was restarted on all home medications. He was ambulatory and lower extremity edema was managed with Lasix and Potassium. At time of DC pt was resumed on all home medication. He will be on Doxycycline 100mg twice daily for six months in addition to potassium supplement for one week and a follow up with Dr. Diaz in one week along with Dr. Garcia and home health orders were placed. He had a dramatic improvement returning to independent ADL's at time of DC and was deemed appropriate for DC home. Labs (last 24 hrs) Laboratory Tests 09/08/18 16:08: Glucometer 170H 3/6/19 21:27: Glucometer 183H 09/09/18 05:23: Glucometer 141H 09/09/18 06:00: White Blood Count 13.8H, Red Blood Count 3.74L, Hemoglobin 10.4L, Hematocrit 33L , Mean Corpuscular Volume 87, Mean Corpuscular Hemoglobin 28, Mean Corpuscular Hemoglobin Concent 32, Red Cell Distribution Width 15.3H, Platelet Count 254, Mean Platelet Volume 9.1, Neutrophils (%) (Auto) 78H, Lymphocytes (%) (Auto) 12 , Monocytes (%) (Auto) 9, Eosinophils (%) (Auto) 1, Basophils (%) (Auto) 0, Neutrophils # (Auto) 10.8H, Lymphocytes # (Auto) 1.7, Monocytes # (Auto) 1.3H, Eosinophils # (Auto) 0.1, Basophils # (Auto) 0.0, Sodium Level 134L, Potassium Level 3.5L, Chloride Level 101, Carbon Dioxide Level 23, Anion Gap 10, Blood Urea Nitrogen 22H, Creatinine 1.08, Estimat Glomerular Filtration Rate > 60, BUN /Creatinine Ratio 20, Glucose Level 148H, Calcium Level 7.9L, Corrected Calcium 8.8, Total Bilirubin 0.5, Aspartate Amino Transf (AST/SGOT) 155H, Alanine Aminotransferase (ALT/SGPT) 26, Alkaline Phosphatase 82, Total Protein 5.9L, Albumin 2.9L 09/09/18 11:17: Glucometer 135H 09/09/18 16:14: Glucometer 130H 09/09/18 20:42: Glucometer 209H 09/10/18 05:34: Glucometer 136H 09/10/18 11:18: Glucometer 110 09/10/18 16:08: Glucometer 153H 09/10/18 20:28: Glucometer 190H 09/11/18 06:16: Glucometer 137H 09/11/18 08:55: White Blood Count 10.2, Red Blood Count 3.33L, Hemoglobin 9.4L, Hematocrit 29L, Mean Corpuscular Volume 87, Mean Corpuscular Hemoglobin 28, Mean Corpuscular Hemoglobin Concent 32, Red Cell Distribution Width 15.4H, Platelet Count 290, Mean Platelet Volume 8.7, Neutrophils (%) (Auto) 74, Lymphocytes (%) (Auto) 13, Monocytes (%) (Auto) 11, Eosinophils (%) (Auto) 2, Basophils (%) (Auto) 0, Neutrophils # (Auto) 7.5, Lymphocytes # (Auto) 1.3, Monocytes # (Auto) 1.1H, Eosinophils # (Auto) 0.2, Basophils # (Auto) 0.0, Sodium Level 135, Potassium Level 2.9L, Chloride Level 100, Carbon Dioxide Level 25, Anion Gap 10, Blood Urea Nitrogen 14, Creatinine 0.80, Estimat Glomerular Filtration Rate > 60, BUN/ Creatinine Ratio 18, Glucose Level 155H, Calcium Level 8.1L, Corrected Calcium 9.0, Total Bilirubin 0.4, Aspartate Amino Transf (AST/SGOT) 131H, Alanine Aminotransferase (ALT/SGPT) 47, Alkaline Phosphatase 89, Total Protein 5.9L, Albumin 2.9L 09/11/18 12:15: Glucometer 123H 09/11/18 16:51: Glucometer 178H 09/11/18 21:17: Glucometer 141H 09/12/18 05:49: Glucometer 130H 09/12/18 11:06: Glucometer 137H 09/12/18 16:22: Glucometer 146H 09/12/18 20:23: Glucometer 167H 09/13/18 06:22: Glucometer 118H 09/13/18 11:14: Glucometer 144H 09/13/18 17:05: Glucometer 236H 09/13/18 21:37: Glucometer 167H 09/14/18 06:24: Glucometer 128H 09/14/18 10:40: White Blood Count 13.4H, Red Blood Count 3.42L, Hemoglobin 9.6L, Hematocrit 30L , Mean Corpuscular Volume 89, Mean Corpuscular Hemoglobin 28, Mean Corpuscular Hemoglobin Concent 32, Red Cell Distribution Width 15.9H, Platelet Count 381, Mean Platelet Volume 8.7, Neutrophils (%) (Auto) 70, Lymphocytes (%) (Auto) 17, Monocytes (%) (Auto) 11, Eosinophils (%) (Auto) 2, Basophils (%) (Auto) 0, Neutrophils # (Auto) 9.4H, Lymphocytes # (Auto) 2.3, Monocytes # (Auto) 1.5H, Eosinophils # (Auto) 0.2, Basophils # (Auto) 0.0, Erythrocyte Sedimentation Rate 115H, Sodium Level 138, Potassium Level 3.2L, Chloride Level 102, Carbon Dioxide Level 26, Anion Gap 10, Blood Urea Nitrogen 12, Creatinine 0.81, Estimat Glomerular Filtration Rate > 60, BUN/Creatinine Ratio 15, Glucose Level 125H, Calcium Level 8.0L, Corrected Calcium 9.0, Total Bilirubin 0.3, Aspartate Amino Transf (AST/SGOT) 78H, Alanine Aminotransferase (ALT/SGPT) 40, Alkaline Phosphatase 83, Total Protein 5.7L, Albumin 2.8L 09/14/18 11:05: Glucometer 136H 09/14/18 15:35: Urine Color AMBERH, Urine Clarity SLIGHTLY CLOUDY, Urine pH 6, Urine Specific Grayson 1.020, Urine Protein 1+H, Urine Glucose (UA) NEGATIVE, Urine Ketones NEGATIVE, Urine Nitrite NEGATIVE, Urine Bilirubin NEGATIVE, Urine Urobilinogen NORMAL, Urine Leukocyte Esterase 1+H, Urine RBC (Auto) 1+H, Urine RBC RARE, Urine WBC 0-2, Urine Crystals NONE, Urine Bacteria NEGATIVE, Urine Casts NONE, Urine Mucus NEGATIVE, Urine Culture Indicated NO 09/14/18 16:32: Glucometer 136H 09/14/18 20:56: Glucometer 162H 09/15/18 05:38: White Blood Count 12.9H, Red Blood Count 3.45L, Hemoglobin 9.7L, Hematocrit 31L , Mean Corpuscular Volume 89, Mean Corpuscular Hemoglobin 28, Mean Corpuscular Hemoglobin Concent 32, Red Cell Distribution Width 16.4H, Platelet Count 426H, Mean Platelet Volume 8.8, Neutrophils (%) (Auto) 71, Lymphocytes (%) (Auto) 16, Monocytes (%) (Auto) 11, Eosinophils (%) (Auto) 2, Basophils (%) (Auto) 0, Neutrophils # (Auto) 9.1H, Lymphocytes # (Auto) 2.1, Monocytes # (Auto) 1.5H, Eosinophils # (Auto) 0.2, Basophils # (Auto) 0.0, Sodium Level 137, Potassium Level 3.6, Chloride Level 103, Carbon Dioxide Level 26, Anion Gap 8, Blood Urea Nitrogen 12, Creatinine 0.73, Estimat Glomerular Filtration Rate > 60, BUN/ Creatinine Ratio 16, Glucose Level 133H, Calcium Level 8.1L, Corrected Calcium 9.1, Total Bilirubin 0.4, Aspartate Amino Transf (AST/SGOT) 52H, Alanine Aminotransferase (ALT/SGPT) 34, Alkaline Phosphatase 84, Total Protein 5.7L, Albumin 2.8L 09/15/18 06:02: Glucometer 165H 09/15/18 11:27: Glucometer 133H 09/15/18 16:28: Glucometer 138H 09/15/18 21:12: Glucometer 127H 09/16/18 06:24: Glucometer 110 09/16/18 12:00: Glucometer 115H 09/16/18 16:25: Glucometer 122H 09/16/18 20:52: Glucometer 130H 09/17/18 06:12: Glucometer 119H 09/17/18 10:56: Glucometer 111H 09/17/18 16:08: Glucometer 114H 09/17/18 21:31: Glucometer 153H 09/18/18 05:17: Glucometer 105 09/18/18 11:33: Glucometer 118H 09/18/18 15:38: Glucometer 166H 09/18/18 20:10: Glucometer 193H 09/19/18 04:51: White Blood Count 10.8, Red Blood Count 3.26L, Hemoglobin 9.0L, Hematocrit 29L, Mean Corpuscular Volume 89, Mean Corpuscular Hemoglobin 28, Mean Corpuscular Hemoglobin Concent 31L, Red Cell Distribution Width 15.6H, Platelet Count 453H, Mean Platelet Volume 9.0, Neutrophils (%) (Auto) 72, Lymphocytes (%) (Auto) 17, Monocytes (%) (Auto) 10, Eosinophils (%) (Auto) 2, Basophils (%) (Auto) 0, Neutrophils # (Auto) 7.8, Lymphocytes # (Auto) 1.9, Monocytes # (Auto) 1.0, Eosinophils # (Auto) 0.2, Basophils # (Auto) 0.0, Sodium Level 138, Potassium Level 3.3L, Chloride Level 100, Carbon Dioxide Level 27, Anion Gap 11, Blood Urea Nitrogen 12, Creatinine 0.76, Estimat Glomerular Filtration Rate > 60, BUN/ Creatinine Ratio 16, Glucose Level 123H, Calcium Level 8.1L, Corrected Calcium 9.2, Total Bilirubin 0.3, Aspartate Amino Transf (AST/SGOT) 38H, Alanine Aminotransferase (ALT/SGPT) 30, Alkaline Phosphatase 81, Total Protein 5.4L, Albumin 2.6L 09/19/18 12:08: Glucometer 101 09/19/18 16:45: Glucometer 113H 09/19/18 20:18: Glucometer 153H 09/20/18 06:08: Glucometer 135H 09/20/18 10:43: Glucometer 120H Microbiology 09/14/18 Influenza Types A,B Antigen ([facility]MER) - Final, Complete Pending Labs Microbiology Date/Time Source Procedure Growth Status 09/14/18 13:20 Nasal Aspirate Influenza Types A,B Antigen ([facility]ALMER) - Final Complete Laboratory Tests 09/08/18 16:08: Glucometer 170 09/08/18 21:27: Glucometer 183 09/09/18 05:23: Glucometer 141 09/09/18 06:00: White Blood Count 13.8, Red Blood Count 3.74, Hemoglobin 10.4, Hematocrit 33, Mean Corpuscular Volume 87, Mean Corpuscular Hemoglobin 28, Mean Corpuscular Hemoglobin Concent 32, Red Cell Distribution Width 15.3, Platelet Count 254, Mean Platelet Volume 9.1, Neutrophils (%) (Auto) 78, Lymphocytes (%) (Auto) 12, Monocytes (%) (Auto) 9, Eosinophils (%) (Auto) 1, Basophils (%) (Auto) 0, Neutrophils # (Auto) 10.8, Lymphocytes # (Auto) 1.7, Monocytes # (Auto) 1.3, Eosinophils # (Auto) 0.1, Basophils # (Auto) 0.0, Sodium Level 134, Potassium Level 3.5, Chloride Level 101, Carbon Dioxide Level 23, Anion Gap 10, Blood Urea Nitrogen 22, Creatinine 1.08, Estimat Glomerular Filtration Rate > 60, BUN/ Creatinine Ratio 20, Glucose Level 148, Calcium Level 7.9, Corrected Calcium 8.8 , Total Bilirubin 0.5, Aspartate Amino Transf (AST/SGOT) 155, Alanine Aminotransferase (ALT/SGPT) 26, Alkaline Phosphatase 82, Total Protein 5.9, Albumin 2.9 09/09/18 11:17: Glucometer 135 09/09/18 16:14: Glucometer 130 09/09/18 20:42: Glucometer 209 09/10/18 05:34: Glucometer 136 09/10/18 11:18: Glucometer 110 09/10/18 16:08: Glucometer 153 09/10/18 20:28: Glucometer 190 09/11/18 06:16: Glucometer 137 09/11/18 08:55: White Blood Count 10.2, Red Blood Count 3.33, Hemoglobin 9.4, Hematocrit 29, Mean Corpuscular Volume 87, Mean Corpuscular Hemoglobin 28, Mean Corpuscular Hemoglobin Concent 32, Red Cell Distribution Width 15.4, Platelet Count 290, Mean Platelet Volume 8.7, Neutrophils (%) (Auto) 74, Lymphocytes (%) (Auto) 13, Monocytes (%) (Auto) 11, Eosinophils (%) (Auto) 2, Basophils (%) (Auto) 0, Neutrophils # (Auto) 7.5, Lymphocytes # (Auto) 1.3, Monocytes # (Auto) 1.1, Eosinophils # (Auto) 0.2, Basophils # (Auto) 0.0, Sodium Level 135, Potassium Level 2.9, Chloride Level 100, Carbon Dioxide Level 25, Anion Gap 10, Blood Urea Nitrogen 14, Creatinine 0.80, Estimat Glomerular Filtration Rate > 60, BUN/ Creatinine Ratio 18, Glucose Level 155, Calcium Level 8.1, Corrected Calcium 9.0 , Total Bilirubin 0.4, Aspartate Amino Transf (AST/SGOT) 131, Alanine Aminotransferase (ALT/SGPT) 47, Alkaline Phosphatase 89, Total Protein 5.9, Albumin 2.9 09/11/18 12:15: Glucometer 123 09/11/18 16:51: Glucometer 178 09/11/18 21:17: Glucometer 141 09/12/18 05:49: Glucometer 130 09/12/18 11:06: Glucometer 137 09/12/18 16:22: Glucometer 146 09/12/18 20:23: Glucometer 167 09/13/18 06:22: Glucometer 118 09/13/18 11:14: Glucometer 144 09/13/18 17:05: Glucometer 236 09/13/18 21:37: Glucometer 167 09/14/18 06:24: Glucometer 128 09/14/18 10:40: White Blood Count 13.4, Red Blood Count 3.42, Hemoglobin 9.6, Hematocrit 30, Mean Corpuscular Volume 89, Mean Corpuscular Hemoglobin 28, Mean Corpuscular Hemoglobin Concent 32, Red Cell Distribution Width 15.9, Platelet Count 381, Mean Platelet Volume 8.7, Neutrophils (%) (Auto) 70, Lymphocytes (%) (Auto) 17, Monocytes (%) (Auto) 11, Eosinophils (%) (Auto) 2, Basophils (%) (Auto) 0, Neutrophils # (Auto) 9.4, Lymphocytes # (Auto) 2.3, Monocytes # (Auto) 1.5, Eosinophils # (Auto) 0.2, Basophils # (Auto) 0.0, Erythrocyte Sedimentation Rate 115, Sodium Level 138, Potassium Level 3.2, Chloride Level 102, Carbon Dioxide Level 26, Anion Gap 10, Blood Urea Nitrogen 12, Creatinine 0.81, Estimat Glomerular Filtration Rate > 60, BUN/Creatinine Ratio 15, Glucose Level 125, Calcium Level 8.0, Corrected Calcium 9.0, Total Bilirubin 0.3, Aspartate Amino Transf (AST/SGOT) 78, Alanine Aminotransferase (ALT/SGPT) 40, Alkaline Phosphatase 83, Total Protein 5.7, Albumin 2.8 09/14/18 11:05: Glucometer 136 09/14/18 15:35: Urine Color CATE, Urine Clarity SLIGHTLY CLOUDY, Urine pH 6, Urine Specific Grayson 1.020, Urine Protein 1+, Urine Glucose (UA) NEGATIVE, Urine Ketones NEGATIVE, Urine Nitrite NEGATIVE, Urine Bilirubin NEGATIVE, Urine Urobilinogen NORMAL, Urine Leukocyte Esterase 1+, Urine RBC (Auto) 1+, Urine RBC RARE, Urine WBC 0-2, Urine Crystals NONE, Urine Bacteria NEGATIVE, Urine Casts NONE, Urine Mucus NEGATIVE, Urine Culture Indicated NO 09/14/18 16:32: Glucometer 136 09/14/18 20:56: Glucometer 162 09/15/18 05:38: White Blood Count 12.9, Red Blood Count 3.45, Hemoglobin 9.7, Hematocrit 31, Mean Corpuscular Volume 89, Mean Corpuscular Hemoglobin 28, Mean Corpuscular Hemoglobin Concent 32, Red Cell Distribution Width 16.4, Platelet Count 426, Mean Platelet Volume 8.8, Neutrophils (%) (Auto) 71, Lymphocytes (%) (Auto) 16, Monocytes (%) (Auto) 11, Eosinophils (%) (Auto) 2, Basophils (%) (Auto) 0, Neutrophils # (Auto) 9.1, Lymphocytes # (Auto) 2.1, Monocytes # (Auto) 1.5, Eosinophils # (Auto) 0.2, Basophils # (Auto) 0.0, Sodium Level 137, Potassium Level 3.6, Chloride Level 103, Carbon Dioxide Level 26, Anion Gap 8, Blood Urea Nitrogen 12, Creatinine 0.73, Estimat Glomerular Filtration Rate > 60, BUN/ Creatinine Ratio 16, Glucose Level 133, Calcium Level 8.1, Corrected Calcium 9.1 , Total Bilirubin 0.4, Aspartate Amino Transf (AST/SGOT) 52, Alanine Aminotransferase (ALT/SGPT) 34, Alkaline Phosphatase 84, Total Protein 5.7, Albumin 2.8 09/15/18 06:02: Glucometer 165 09/15/18 11:27: Glucometer 133 09/15/18 16:28: Glucometer 138 09/15/18 21:12: Glucometer 127 09/16/18 06:24: Glucometer 110 09/16/18 12:00: Glucometer 115 09/16/18 16:25: Glucometer 122 09/16/18 20:52: Glucometer 130 09/17/18 06:12: Glucometer 119 09/17/18 10:56: Glucometer 111 09/17/18 16:08: Glucometer 114 09/17/18 21:31: Glucometer 153 09/18/18 05:17: Glucometer 105 09/18/18 11:33: Glucometer 118 09/18/18 15:38: Glucometer 166 09/18/18 20:10: Glucometer 193 09/19/18 04:51: White Blood Count 10.8, Red Blood Count 3.26, Hemoglobin 9.0, Hematocrit 29, Mean Corpuscular Volume 89, Mean Corpuscular Hemoglobin 28, Mean Corpuscular Hemoglobin Concent 31, Red Cell Distribution Width 15.6, Platelet Count 453, Mean Platelet Volume 9.0, Neutrophils (%) (Auto) 72, Lymphocytes (%) (Auto) 17, Monocytes (%) (Auto) 10, Eosinophils (%) (Auto) 2, Basophils (%) (Auto) 0, Neutrophils # (Auto) 7.8, Lymphocytes # (Auto) 1.9, Monocytes # (Auto) 1.0, Eosinophils # (Auto) 0.2, Basophils # (Auto) 0.0, Sodium Level 138, Potassium Level 3.3, Chloride Level 100, Carbon Dioxide Level 27, Anion Gap 11, Blood Urea Nitrogen 12, Creatinine 0.76, Estimat Glomerular Filtration Rate > 60, BUN/ Creatinine Ratio 16, Glucose Level 123, Calcium Level 8.1, Corrected Calcium 9.2 , Total Bilirubin 0.3, Aspartate Amino Transf (AST/SGOT) 38, Alanine Aminotransferase (ALT/SGPT) 30, Alkaline Phosphatase 81, Total Protein 5.4, Albumin 2.6 09/19/18 12:08: Glucometer 101 09/19/18 16:45: Glucometer 113 09/19/18 20:18: Glucometer 153 09/20/18 06:08: Glucometer 135 09/20/18 10:43: Glucometer 120 Discharge Home Medications: Active Scripts Active Lasix (Furosemide) 40 Mg Tablet 40 Mg PO Q48H Doxycycline Hyclate 100 Mg Tablet 100 Mg PO BID@07,17 Potassium Chloride 10 Meq Tab.er.prt 10 Meq PO BID Hydrocodon-Acetaminophn 10-325 (Hydrocodone/Acetaminophen) 1 Each Tablet 1-2 Ea PO Q4H PRN Reported Metformin HCl ER (Metformin HCl) 500 Mg Tab.er.24 500 Mg PO BID Finasteride 5 Mg Tablet 5 Mg PO 1800 Cyclobenzaprine HCl 10 Mg Tablet 10 Mg PO TID Tamsulosin HCl 0.4 Mg Cap.er.24h 0.4 Mg PO 1800 Metoprolol Succinate 50 Mg Tab.er.24h 50 Mg PO DAILY Coq-10 (Ubidecarenone) 100 Mg Capsule 200 Mg PO 1200 Gabapentin 600 Mg Tablet 1,800 Mg PO HS TAKE 3 (600MG) TABS AT HS Gabapentin 600 Mg Tablet 600 Mg PO 0800,1200 Instructions to patient/family Please see electronic discharge instructions given to patient. Diagnosis/Problems Diagnosis/Problems (1) Fixation hardware in spine Status: Acute (2) History of BPH Status: Chronic (3) KIMANI (obstructive sleep apnea) Status: Chronic (4) Obesity Status: Chronic (5) Acute renal failure Status: Acute Assessment & Plan: Resolved (6) Diabetes mellitus Status: Chronic (7) Hypokalemia (8) Urinary retention (9) Left knee pain (10) Sore throat (11) Anemia (12) Leukocytosis Status: Acute (13) Edema Clinical Quality Measures DVT/VTE Risk/Contraindication: Risk Factor Score Per Nursin RFS Level Per Nursing on Admit: 4+=Very High MODESTO SOLIS DO Sep 20, 2018 08:29
[2018-09-20] MEDS ORDERED: DOXY100T2 PO (08:32)
--- NOTE | 2018-09-20 08:36 | NUR ---
TANK CAR REPAIRER received report from RN and Dr. Alejandro that patient has requested to discharge home today. RN reports pain is now manageable and patient is performing therapy activities somewhat independently. Patient will need home health services for PT, OT and RN upon discharge. Patient continues to have minoo and back which are to be removed on 320. Incision site looks good; however, does remain to have drainage at times. RN intends to provide education to patient's spouse on dressing changes as home health nursing cannot visit daily. Patient is currently working with therapy, TANK CAR REPAIRER will follow up with patient regarding home health options. Dr. Alejandro is in agreement with discharge today. Addendum: 09/20/18 at 1359 by GIANNI GU SS TANK CAR REPAIRER met with patient and to review IMM and provider options for [facility]. Patient is eager to return home and expresses no concerns with discharge plan. Patient reports pain diminished tremendously as of Thursday evening and he is comfortable with the transition to home. Patient has selected [facility], TANK CAR REPAIRER sent referral. Following review of FIM scores by therapy, patient would be appropriate for only PT evaluation, as well as nursing services. TANK CAR REPAIRER confirmed with LUCIA Valadez of Dr. Garcia that minoo should remain intact and he will follow up with Dr. Garcia on 09/27 at 1pm for removal. Please see discharge orders for further information.
--- NOTE | 2018-09-20 08:41 | D/C HH Face to Face Order ---
D/C Face to Face Orders Instructions for Patient [facility], Patient Instructions/FollowUp: Dr Diaz in [address] Garcia in 1 week Physician to follow Patient: Dr Diaz and Dr Garcia Discharge Diet for Home: ADA Diet Patient Problems: Extensive spine surgery Debility KIMANI DM Suppressive antibiotic for 6 months with Doxycycline 100mg PO BID Patient Data-Allergies,Ht & Wt Patient Allergies: Coded Allergies: aspirin (Verified Allergy, Mild, UPSET STOMACH, 08/30/18) latex (Verified Allergy, Mild, HIVES, 08/30/18) Height (Feet): 5 Height (Inches): 7.00 Weight (Pounds): 310 Weight (Ounces): 5.0 Home Health Need/Face to Face Date of Face to Face: Sep 20, 2018 Clinical Findings: Generalized weakness and fatigue, Muscle weakness, Pain with ambulation, Unsteady gait I have seen Pt [id number]: Yes Discharged To: Home Diagnosis/Conditions: Extensive spine surgery Debility KIMANI DM Suppressive antibiotic for 6 months with Doxycycline 100mg PO BID Patient is Homebound due to: CognItive deficits, Jose J fall risk due to instabilty, Muscle weakness, Pain w/ambulation Homebound Status Due to the above stated illness, injury or surgical procedure (medical condition or diagnosis) and associated clinical findings, the patient is homebound because of his/her inability to leave home except with aid of a supportive device and/or person AND leaving the home requires a considerable and taxing effort or is medically contraindicated. Pt req the following assistanc: [facility] Nursing Orders Home Health Services Order: Nursing Services, Transmission Calibration Engineer-Evaluate & Treat, Physical Therapy-Evaluate & Treat Home Health Infusion Therapy Line Type: Saline Lock Site Location: Hand Certify Stmt I certify that this patient is under my care and that I, a nurse practitioner or a physician; a stores assistant working with me, had a face to face encounter that - meets the physician face to face encounter requirements with this patient as dated. MODESTO SOLIS DO Sep 20, 2018 08:40
--- NOTE | 2018-09-20 09:51 | Physical Therapy Daily Note ---
PT Daily Note-Current Subjective Pt. and present and state he is still not where he had been before the coughing that brought on all the pain in his right hip and side but he is better and ready to go home Pain Numeric Pain Scale: 4 Location: Right Location Body Site: Hip Pain Description: Ache Mental Status Patient Orientation: Normal For Age Attachments: Other-See Comments (back brace, dons indep) Transfers Therapy Code Descriptions/Definitions Functional Meeker Measure: 0=Not Assessed/NA 4=Minimal Assistance 1=Total Assistance 5=Supervision or Setup 2=Maximal Assistance 6=Modified Meeker 3=Moderate Assistance 7=Complete Meeker Therapy Quality Codes: 6 Independent with activity with or without an assistive device 5 Patient requires set up or clean up by helper. Patient completes activity by themselves 4 Supervision or touching assist (CGA). Lindon provide cues , steadying assist 3 The helper provides less than half the effort to complete the activity 2 The helper provides more than half the effort to complete the activity 1 Dependent. The helper does all the effort to complete an activity 7 Patient refused to complete or attempt activity 9 The patient did not perform the activity before the current illness or injury 88 Not attempted due to Medical conditions or safety concerns Transfers (B, C, W/C) (FIM): 6 Scootin Rollin Roll Left to Right (QC): 6 Supine to/from Sit: 6 Sit to/from Stand: 6 Sit to Lying (QC): 6 Sit to Stand (QC): 6 Chair/Qjl-gb-Mykll Xfer(QC): 6 Bed to/from Chair: 6 Car Transfer (QC): 6 Weight Bearing Right Lower Extremity: Right Weight Bearing/Tolerated Left Lower Extremity: Left Weight Bearing/Tolerated Gait Training Does the Patient Walk?: Yes Gait (FIM): 6 Distance (FIM): 3=150 ft (170x2) Walk 10 feet (QC): 6 Walk 50 ft with 2 Turns(QC): 6 Walk 150 ft (QC): 6 Walking 10ft/uneven surface-QC: 6 Gait Level of Assist: 6 Gait Persons Needed: 0 Gait Assistive Device: FWW Stair Training Stair Training: Handrails/: 1 handrail Stairs (FIM): 2 #of Steps: 4 1 Step (curb) (QC): 4 4 Steps (QC): 4 Stairs: Pattern: Step to Level of Assist: 4 CGA and instruction for sequence , also instructed in use of gait belt and assistance of pt. on steps Assessment Current Status: Good Progress meets goals, well informed and very supportive PT Short Term Goals Short Term Goals Time Frame: Sep 15, 2018 Transfers (B,C,W/C) (FIM): 4 Gait (FIM): 4 Distance (FIM): 3=150 ft Gait Distance Comment: 150' Gait Level of Assist: 4 Gait Assistive Device: FWW PT Jail Goals Community Service Officer Coordinator Goals PT Community Service Officer Coordinator Goals Time Frame: Sep 29, 2018 Transfers (B,C,W/C) (FIM): 5 Sit to Lying (QC): 4 Lying-Sitting on Side/Bed(QC): 4 Sit to Stand (QC): 4 Rollin Roll Left to Right (QC): 4 Chair/Rsp-ed-Ujhmv Xfer(QC): 4 Car Transfer (QC): 4 Does the Patient Walk: Yes Gait (FIM): 5 Gait distance (FIM): 3=150 ft Distance: 300' Walk 10 feet (QC): 4 Walk 10ft-Uneven Surface(QC): 4 Walk 50ft with 2 Turns (QC): 4 Walk 150 ft (QC): 4 Gait Level of Assist: 5 Gait Assistive Device: FWW Stairs (FIM): 2 # of Steps: 4 1 Step (curb) (QC): 4 4 Steps (QC): 4 Stairs Level Of Assist: 5 PT Plan Treatment/Plan Treatment Plan: Continue Plan of Care Treatment Plan: Bed Mobility, Education, Functional Activity Ariel, Functional Strength, Group Therapy, Gait, Safety, Therapeutic Exercise, Transfers Treatment Duration: Sep 29, 2018 Frequency: At least 5 of 7 days/Wk (IRF) Estimated Hrs Per Day: 1.5 hours per day Patient and/or Family Agrees t: Yes Safety Risks/Education Patient Education: Gait Training, Transfer Techniques, Steps, Correct Positioning, Reviewed Don/Doff Brace, Instructions to Caregiver, Disease Process , Safety Issues Teaching Recipient: Patient, Primary Caregiver, Family Teaching Methods: Discussion Response to Teaching: Verbalize Understanding, Return Demonstration, Reinforcement Needed Time/GCodes Time In: 915 Time Out: 945 Total Billed Treatment Time: 30 Total Billed Treatment 1,GT15, FA15 G Codes Necessary: CHI Merlos PTA Sep 20, 2018 09:51
[2018-09-20] MEDS ORDERED: FURO-124 PO (11:08)
--- NOTE | 2018-09-20 11:41 | NUR ---
Per Richard Alexander, leave minoo intact until F/U appointment with Dr. Garcia on 09/27/18 at 1:00 PM.
--- NOTE | 2018-09-20 11:42 | NUR ---
Went over discharge instructions with patient and . Patient to wear back brace when OOB. Patient/ verbalize understanding.
[2018-09-20 11:53] VITALS: BP 119/81
--- NOTE | 2018-09-20 11:55 | NUR ---
ANNMARIE ANNE demonstrates understanding of discharge instructions and accurately returns instructions upon questioning. Copy of Post-Discharge Instructions given to PATIENT. ANNMARIE ANNE is able to manage continuing needs after discharge. Patient's belongings returned to PATIENT. Patient discharged from [facility] on 09/20/18 at 1155. ANNMARIE ANNE left floor via WHEELCHAIR, accompanied by STAFF AND SPOUSE.
--- NOTE | 2018-09-21 08:24 | Therapy Team Discharge Summary ---
Therapy Discharge Summary Discharge Recommendations Date of Discharge Sep 20, 2018 at 12:39 Therapy D/C Recommendations: Home w/ Family Support Occupational Therapy Decreased Activ Tolerance, Impaired Self-Care Skills PT Halfway Goals Sports Internship Goals PT Halfway Goals Time Frame: Sep 29, 2018 Transfers (B,C,W/C) (FIM): 5 Roll Left to Right (QC): 4 Sit to Lying (QC): 4 Lying-Sitting on Side/Bed(QC): 4 Sit to Stand (QC): 4 Chair/Ibq-el-Srbxl Xfer(QC): 4 Car Transfer (QC): 4 Does the Patient Walk: Yes Gait (FIM): 5 Gait distance (FIM): 3=150 ft Distance: 300' Walk 10 feet (QC): 4 Walk 10ft-Uneven Surface(QC): 4 Walk 50ft with 2 Turns (QC): 4 Walk 150 ft (QC): 4 Gait Level of Assist: 5 Gait Assistive Device: FWW Stairs (FIM): 2 # of Steps: 4 1 Step (curb) (QC): 4 4 Steps (QC): 4 Stairs Level Of Assist: 5 OT Halfway Goals Sports Internship Goals Time Frame: Oct 06, 2018 Eating (FIM): 7 (met) Eating (QC): 6 (met) Oral Hygiene (QC): 6 (met) Grooming(FIM): 7 (met) Bathing(FIM): 7 (7 met) Bathing Location: L Arm, R Arm, L Upper Leg, R Upper Leg, L Lower Leg ( including foot), R Lower Leg (including foot), Chest, Abdomen, Buttocks, Perineal Area Shower/Bathe Self (QC): 6 (met) Upper Body Dressing(FIM): 7 (met) Upper Body Dressing (QC): 6 ( met) Lower Body Dressing(FIM): 7 (6 , Pt using AE and set up only.) Lower Body Dressing (QC): 6 (5, pt using AE. ) On/Off Footwear (QC): 6 (MET) Toileting(FIM): 7 (6, Pt using AE) Toileting Hygiene (QC): 6 (met) Transfers (B,C,W/C) (FIM): 7 (6, Pt using FWW as a AE.) Toilet/Commode Transfer(FIM): 7 (6, pt using AE.) Toilet/Commode Transfer (QC): 6 (met) Tub Transfer(FIM): 7 (Not applied./ not met.) Shower Transfer(FIM): 7 (6, pt using AE .) Additional Goals: 1-Demonstrate ADL Tasks, 2-Verbalize Understanding, 3- ImproveStrength/Ariel 1=Demonstrate adherence to instructed precautions during ADL tasks. 2=Patient will verbalize/demonstrate understanding of assistive devices/ modifications for ADL. 3=Patient will improve strength/tolerance for activity to enable patient to perform ADL's. DYLLAN GANT OT Sep 21, 2018 08:24
== END 2018-09-20 12:39 | disposition home health service (06) | DRG 560 ==
PROVIDERS: ADMIT Internal Medicine; ATTEND Internal Medicine
DX: Z47.89 Encounter for other orthopedic aftercare (principal); G47.33 Obstructive sleep apnea (adult) (pediatric); I10 Essential (primary) hypertension; E11.9 Type 2 diabetes mellitus without complications; E66.9 Obesity, unspecified; Z68.42 Body mass index [BMI] 45.0-49.9, adult; R33.9 Retention of urine, unspecified; E87.6 Hypokalemia; J02.9 Acute pharyngitis, unspecified; R60.0 Localized edema; D72.829 Elevated white blood cell count, unspecified; Z91.19 Patient's noncompliance with other medical treatment and regimen; Z79.84 Long term (current) use of oral hypoglycemic drugs
CPT/HCPCS: 36415; 71046; 72082; 80053; 81000; 82962; 85025; 85652; 87804